=== PATIENT | male | born 1945 | race Two or more races ===

== ENCOUNTER 2020-09-10 11:34 | Outpatient (CLI) | payer OTHER, SELFPAY ==
[2020-09-10 12:04] LABS: Basophils Percent Auto 0.6 % (0.2-1.2); Eosinophils Absolute Auto 0.2 K/mm3 (0-0.3); Eosinophils Percent Auto 3.3 % (0-4.4); Hematocrit 47.3 % (42.0-52.0); Hemoglobin 15.7 g/dL (14.0-18.0); Immature Granulocyte Absolute 0.03 K/mm3 (0.00-0.031); Immature Granulocyte Percent A 0.4 % (0-0.5); Lymphocytes Absolute Auto 1.19 K/mm3 (0.9-3.2); Lymphocytes Percent Auto 16.4 % (18.3-44.2); Mean Corpuscular HGB Conc 33.2 g/dl (32-36); Mean Corpuscular Hemoglobin 31.8 pg (26-34); Mean Corpuscular Volume 95.9 fl (80-100); Mean Platelet Volume 10.6 fl (7.4-10.4); Monocytes Absolute Auto 0.6 K/mm3 (0.1-0.6); Monocytes Percent Auto 8.1 % (2.6-8.5); Neutrophils Absolute Auto 5.2 K/mm3 (1.3-6.7); Neutrophils Percent Auto 71.2 % (45.5-73.1); Platelet Count Result 223 k/mm3 (150-375); Red Blood Count 4.93 M/mm3 (4.6-6.20); Red Cell Distribution Width 12.8 % (11.5-14.5); White Blood Count 7.3 K/mm3 (4.5-10.0)
[2020-09-10 12:12] LABS: Hemoglobin A1C 5.9 % (<5.7)
[2020-09-10 12:15] LABS: Alanine Aminotransferase 57 U/L (4-50); Albumin Level 4.1 g/dL (3.5-5.1); Alkaline Phosphatase 120 U/L (38-126); Anion Gap 7 mmol/L (8-16); Aspartate Amino Transferase 40 U/L (17-59); Bilirubin,Total 0.5 mg/dL (0.2-1.3); Blood Urea Nitrogen 20 mg/dL (9-20); Calcium 9.1 mg/dL (8.4-10.2); Carbon Dioxide 29 mmol/L (22-30); Chloride 101 mmol/L (98-107); Cholesterol 154 mg/dL (0-200); Estimated Glomerular Filt Rate > 60; Glucose 124 mg/dL (75-110); HDL Direct 35 mg/dL; Magnesium 2.3 mg/dL (1.6-2.3); Potassium 4.2 mmol/L (3.4-5.0); Sodium 137 mmol/L (137-145); Triglycerides 186 mg/dL (<150)
[2020-09-10 12:26] LABS: LDL Cholesterol Direct 85 mg/dL
[2020-09-10 12:45] LABS: Prostate Specific Antigen 0.8 ng/mL (< OR = 4.0)
== END 2020-09-10 11:35 | disposition home or self-care (01) ==
PROVIDERS: PCP Family Medicine; Visit Provider Family Medicine
DX: Z12.5 Encounter for screening for malignant neoplasm of prostate (principal); R73.03 Prediabetes; E78.5 Hyperlipidemia, unspecified; I47.1 Supraventricular tachycardia; I10 Essential (primary) hypertension; Z00.00 Encounter for general adult medical examination without abnormal findings
CPT/HCPCS: 36415; 80053; 80061; 83036; 83735; 84153; 84443; 85025; G0103

== ENCOUNTER 2020-09-29 15:04 | Outpatient (CLI) | payer OTHER, SELFPAY ==
--- NOTE | ~2020-09-29 | US_ITS ---
EXAMINATION: US aorta [facility] DATE: 09/29/2020 15:43 PERINATAL INSTRUCTOR INDICATION: Abdominal aortic aneurysm screening. History of smoking. TECHNIQUE: Grayscale, color Doppler, and pulsed Doppler images of the aorta and common iliac arteries were obtained. COMPARISON: None. FINDINGS: The proximal aorta measures 2.7 cm greatest sagittal dimension. The mid aorta measures 2.5 cm greates t sagittal dimension. The distal aorta measures 1.7 cm greatest sagittal dimension. The right common internal iliac artery measures 1.4 cm. The left common iliac artery measures 1.2 cm. IMPRESSION: 1. Normal caliber aorta without evidence for aneurysm. Reviewed, dictated and finalized at location A. NATAL INSTRUCTOR
== END 2020-09-29 15:05 | disposition home or self-care (01) ==
PROVIDERS: PCP Family Medicine; Visit Provider Family Medicine
DX: Z13.6 Encounter for screening for cardiovascular disorders (principal)
CPT/HCPCS: 76706

== ENCOUNTER 2020-12-06 17:38 | Outpatient (CLI) | payer OTHER, MEDICARE, SELFPAY | END 2020-12-06 17:39 | disposition home or self-care (01) | LOC: ANHCOVIDVC 17:38 | PROVIDERS: PCP Family Medicine | DX: Z23 Encounter for immunization (principal) | CPT/HCPCS: 0001A; 91300 ==

== ENCOUNTER 2020-12-27 13:53 | Outpatient (CLI) | payer OTHER, MEDICARE, SELFPAY | END 2020-12-27 13:54 | disposition home or self-care (01) | LOC: ANHCOVIDVC 13:53 | PROVIDERS: PCP Family Medicine | DX: Z23 Encounter for immunization (principal) | CPT/HCPCS: 0002A; 91300 ==

== ENCOUNTER 2021-01-28 07:53 | Outpatient (CLI) | payer OTHER, SELFPAY ==
--- NOTE | 2021-01-28 14:00 | ECG_ITS ---
Measurements Intervals [place] Rate: 50 P: 42 NE: 170 QRS: 75 QRSD: 136 T: 32 QT: 457 QTc: 418 Interpretive Statements SINUS BRADYCARDIA WITH SINUS ARRHYTHMIA RIGHT BUNDLE BRANCH BLOCK ABNORMAL ECG Electronically Signed On 01-28-2021 15:13:19 CDT by Bridger Schmidt D.O.
[2021-01-28 15:30] LABS: Basophils Percent Auto 0.6 % (0.2-1.2); Eosinophils Absolute Auto 0.2 K/mm3 (0-0.3); Eosinophils Percent Auto 2.3 % (0-4.4); Hematocrit 49.7 % (42.0-52.0); Hemoglobin 16.3 g/dL (14.0-18.0); Immature Granulocyte Absolute 0.03 K/mm3 (0.00-0.031); Immature Granulocyte Percent A 0.4 % (0-0.5); Lymphocytes Absolute Auto 1.72 K/mm3 (0.9-3.2); Lymphocytes Percent Auto 23.7 % (18.3-44.2); Mean Corpuscular HGB Conc 32.8 g/dl (32-36); Mean Corpuscular Hemoglobin 31.5 pg (26-34); Mean Corpuscular Volume 96.1 fl (80-100); Mean Platelet Volume 10.9 fl (7.4-10.4); Monocytes Absolute Auto 0.6 K/mm3 (0.1-0.6); Monocytes Percent Auto 8.8 % (2.6-8.5); Neutrophils Absolute Auto 4.7 K/mm3 (1.3-6.7); Neutrophils Percent Auto 64.2 % (45.5-73.1); Platelet Count Result 239 k/mm3 (150-375); Red Blood Count 5.17 M/mm3 (4.6-6.20); Red Cell Distribution Width 13.1 % (11.5-14.5); White Blood Count 7.3 K/mm3 (4.5-10.0)
[2021-01-28 15:36] LABS: Albumin Level 4.4 g/dL (3.5-5.1); Anion Gap 5 mmol/L (8-16); Blood Urea Nitrogen 24 mg/dL (9-20); Calcium 9.4 mg/dL (8.4-10.2); Carbon Dioxide 30 mmol/L (22-30); Chloride 103 mmol/L (98-107); Estimated Glomerular Filt Rate > 60; Glucose 93 mg/dL (75-110); Potassium 3.8 mmol/L (3.4-5.0); Sodium 138 mmol/L (137-145)
[2021-01-28 15:40] LABS: Urine Cotinine NEGATIVE
[2021-01-28 15:42] LABS: Hemoglobin A1C 6.1 % (<5.7)
== END 2021-01-28 07:54 | disposition home or self-care (01) ==
LOC: ANHSURGERY 02-25 07:53
PROVIDERS: PCP Family Medicine; Visit Provider Orthopaedic Surgery
DX: Z01.812 Encounter for preprocedural laboratory examination (principal); M17.12 Unilateral primary osteoarthritis, left knee; R94.31 Abnormal electrocardiogram [ECG] [EKG]
CPT/HCPCS: 80048; 80307; 82040; 83036; 85025; 87070; 93005

== ENCOUNTER → 2021-02-11 00:27 | Outpatient (CLI) | payer OTHER, SELFPAY ==
[2021-02-11 18:42] LABS: SARS-CoV-2 RNA PCR Negative
== END ==
PROVIDERS: PCP Family Medicine; Visit Provider Orthopaedic Surgery
DX: Z01.812 Encounter for preprocedural laboratory examination (principal); Z20.822 Contact with and (suspected) exposure to COVID-19
CPT/HCPCS: C9803; U0003; U0005

== ENCOUNTER 2021-02-14 00:55 | Day surgery (SDC) | payer OTHER, SELFPAY ==
[2021-01-28 13:58] VITALS: BMI 28.7
--- NOTE | 2021-02-07 12:50 | PM.IMHP ---
H&P: HPI History of Present Illness Date/Time: 02/07/21 12:50 75-year-old male patient Dr. Guerrero who presents today for a left total knee arthroplasty with cortisone injection in the right. Patient has severe patellofemoral arthritis in his left knee with continued symptoms. He has had cortisone injections in the past last 1 being more than 5 months ago. He has tried anti-inflammatories in the past without improvement. Patient has reached the point where he feels he is ready to proceed with total knee arthroplasty rather continue treating this nonsurgically. He has pain daily basis. It affects his daily activities as well as limits some of his daily activities. Review of Systems Review of Systems: All systems reviewed & are unremarkable except as noted in HPI and below PMFSH Past Medical History Medical History Benign essential hypertension (~2009) BPH (benign prostatic hyperplasia) (~2016) Dyslipidemia Erectile dysfunction GERD (gastroesophageal reflux disease) (~2009) Glaucoma (~2014) Hypokalemia Insomnia RITA on CPAP Osteoarthritis involving multiple joints on both sides of body Prediabetes RLS (restless legs syndrome) (~2017) Rosacea (~2012) Rotator cuff disorder (~2018) Screening for AAA (abdominal aortic aneurysm) Negative for AA (09/2020) Tachycardia, paroxysmal Surgical History Surgical History H/O elbow surgery left cubital tunnel release - 03/27 History of cataract surgery left eye - 03/27 History of lumbar surgery 11/27 L3,4,5 History of repair of right rotator cuff 06/2019 Family History Family History Mother Family history of emphysema Family history of cardiovascular disease Father Family history of cardiovascular disease Grandparent , cancer No problems noted. Grandparent Diabetes mellitus dx'd in her 20's. 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 Gender identity (if verbalized by the patient): Male Spiritual care concerns: No Agree to blood products: Yes Meds Home Medications and Allergies Home Medications Medication Instructions Recorded Confirmed Type Lactobac 100 mg PO DAILY 09/23/19 01/28/21 History 47-B.bifid,animal-S.thermo-FOS 10 billion cell-100 mg capsule ascorbic acid (vitamin C) 1,000 mg 1 gm PO DAILY 09/23/19 01/28/21 History tablet aspirin 81 mg tablet,delayed 81 mg PO DAILY 09/23/19 01/28/21 History release cinnamon bark 500 mg capsule 2,000 mg PO DAILY cap 09/23/19 01/28/21 History lutein 25 mg-zeaxanthin 5 mg 1 cap PO DAILY 09/23/19 01/28/21 History capsule magnesium oxide 400 mg PO BID 09/23/19 01/28/21 History xflkickm-teu-nxqwr acid 300 1 tablet PO DAILY 09/23/19 01/28/21 History mcg-lycopene 600 mcg-lutein 300 mcg tablet omeprazole magnesium 20 mg 20 mg PO DAILY 09/23/19 01/28/21 History tablet,delayed release blood sugar diagnostic #100 each 11/05/19 10/19/20 Rx blood-glucose meter #1 each 11/05/19 10/19/20 Rx lancets 32 gauge #100 each 11/05/19 10/19/20 Rx docusate sodium 100 mg tablet 100 mg PO DAILY 04/20/20 01/28/21 History blood sugar diagnostic #100 each 05/13/20 10/19/20 Rx ramipril 10 mg capsule 10 mg PO DAILY #90 cap 11/15/20 01/28/21 Rx tamsulosin 0.4 mg capsule See Rx Instructions .ROUTE 11/19/20
--- NOTE | 2021-02-07 13:55 | PM.IMHP ---
H&P: HPI History of Present Illness Date/Time: 02/07/21 13:55 75-year-old male patient of Dr. Guerrero who presents today for a left total knee arthroplasty with cortisone injection in the right knee. patient has been having long standing pain in both of his knees left greater than right. He has ufld-mj-ddhj arthritis of the patellofemoral joint left. And moderate patellofemoral arthritis in the right. He has tried injections in the past. Last 1 being more than 5 months ago. States he has pain on a daily basis and has fact taking his normal daily activities. Patient has reached a point where he feels he would rather proceed with total knee arthroplasty rather continue nonsurgical treatment. Chief Complaint: Left and right knee DJD Review of Systems Review of Systems: All systems reviewed & are unremarkable except as noted in HPI and below PMFSH Past Medical History Medical History Benign essential hypertension (~2009) BPH (benign prostatic hyperplasia) (~2016) Dyslipidemia Erectile dysfunction GERD (gastroesophageal reflux disease) (~2009) Glaucoma (~2014) Hypokalemia Insomnia RITA on CPAP Osteoarthritis involving multiple joints on both sides of body Prediabetes RLS (restless legs syndrome) (~2017) Rosacea (~2012) Rotator cuff disorder (~2018) Screening for AAA (abdominal aortic aneurysm) Negative for AA (09/2020) Tachycardia, paroxysmal Surgical History Surgical History H/O elbow surgery left cubital tunnel release - 03/27 History of cataract surgery left eye - 03/27 History of lumbar surgery 11/27 L3,4,5 History of repair of right rotator cuff 06/2019 Family History Family History Mother Family history of emphysema Family history of cardiovascular disease Father Family history of cardiovascular disease Grandparent , cancer No problems noted. Grandparent Diabetes mellitus dx'd in her 20's. 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 Gender identity (if verbalized by the patient): Male Spiritual care concerns: No Agree to blood products: Yes Meds Home Medications and Allergies Home Medications Medication Instructions Recorded Confirmed Type Lactobac 100 mg PO DAILY 09/23/19 01/28/21 History 47-B.bifid,animal-S.thermo-FOS 10 billion cell-100 mg capsule ascorbic acid (vitamin C) 1,000 mg 1 gm PO DAILY 09/23/19 01/28/21 History tablet aspirin 81 mg tablet,delayed 81 mg PO DAILY 09/23/19 01/28/21 History release cinnamon bark 500 mg capsule 2,000 mg PO DAILY cap 09/23/19 01/28/21 History lutein 25 mg-zeaxanthin 5 mg 1 cap PO DAILY 09/23/19 01/28/21 History capsule magnesium oxide 400 mg PO BID 09/23/19 01/28/21 History dmgtqcas-mnn-rfchg acid 300 1 tablet PO DAILY 09/23/19 01/28/21 History mcg-lycopene 600 mcg-lutein 300 mcg tablet omeprazole magnesium 20 mg 20 mg PO DAILY 09/23/19 01/28/21 History tablet,delayed release blood sugar diagnostic #100 each 11/05/19 10/19/20 Rx blood-glucose meter #1 each 11/05/19 10/19/20 Rx lancets 32 gauge #100 each 11/05/19 10/19/20 Rx docusate sodium 100 mg tablet 100 mg PO DAILY 04/20/20 01/28/21 History blood sugar diagnostic #100 each 05/13/20 10/19/20 Rx ramipril 10 mg capsule 10 mg PO DAILY #90 cap 11/15/20
[2021-02-14] VITALS (15 sets, daily range): BP systolic 95–132; BP diastolic 52–75; PULSE 60–78; RESP 10–20; TEMP 36–36.8; O2SAT 92–100; BMI 29.3
--- NOTE | ~2021-02-14 | XR_ITS ---
EXAMINATION: XR knee LT 2V DATE: 02/14/2021 10:49 INDICATION: Total left knee arthroplasty. Postop. TECHNIQUE: 2 views of left knee were obtained. COMPARISON: Left knee radiographs 10/09/2018 FINDINGS: There is a total left knee arthroplasty with patellar resurfacing in near-anatomic alignmen t. No fracture. There is gas in the knee joint and soft tissues, consistent with recent surgery. IMPRESSION: 1. Total left knee arthroplasty in near-anatomic alignment. Reviewed, dictated and finalized at location B.
[2021-02-14] MEDS: TRANEXAMIC ACID 1,000MG/ISO100 1,000 MG/100 ML BAG 200 MG IVPB (06:45)
[2021-02-14] MEDS: ACETAMINOPHEN 500 MG TABLET 1000 MG PO ×3 (06:45→23:25)
[2021-02-14] MEDS: LACTATED RINGERS 1,000 ML 30 ML IV CONT ×2 (06:48→10:49)
--- NOTE | 2021-02-14 07:02 | WPDANESEPPF ---
Anes - Initial Pre Proc Eval Procedure: Operation Date: 02/14/21 07:30 Proposed Procedures p Left Total Knee Arthroplasty, Cortisone Injection Right Knee - Shashank Cason MD Date/Time: 02/14/21 07:02 Surgeon: Shashank Cason MD Pre Op Diagnosis: OA left knee, OA right knee Patient Data Age: 75 Gender: M Height: 5 ft 11 in Weight: 93.4 kg Allergies Allergy/AdvReac Type Severity Reaction Status Date / Time No Known Drug Allergies Allergy Unknown Unknown Verified 01/28/21 13:59 Home Medications Medication Instructions Recorded Confirmed Type Lactobac 100 mg PO DAILY 09/23/19 01/28/21 History 47-B.bifid,animal-S.thermo-FOS 10 billion cell-100 mg capsule ascorbic acid (vitamin C) 1,000 mg 1 gm PO DAILY 09/23/19 01/28/21 History tablet aspirin 81 mg tablet,delayed 81 mg PO DAILY 09/23/19 01/28/21 History release cinnamon bark 500 mg capsule 2,000 mg PO DAILY cap 09/23/19 01/28/21 History lutein 25 mg-zeaxanthin 5 mg 1 cap PO DAILY 09/23/19 01/28/21 History capsule magnesium oxide 400 mg PO BID 09/23/19 01/28/21 History amxpaspk-gep-jodlz acid 300 1 tablet PO DAILY 09/23/19 01/28/21 History mcg-lycopene 600 mcg-lutein 300 mcg tablet omeprazole magnesium 20 mg 20 mg PO DAILY 09/23/19 01/28/21 History tablet,delayed release blood sugar diagnostic #100 each 11/05/19 10/19/20 Rx blood-glucose meter #1 each 11/05/19 10/19/20 Rx lancets 32 gauge #100 each 11/05/19 10/19/20 Rx docusate sodium 100 mg tablet 100 mg PO DAILY 04/20/20 01/28/21 History blood sugar diagnostic #100 each 05/13/20 10/19/20 Rx ramipril 10 mg capsule 10 mg PO DAILY #90 cap 11/15/20 01/28/21 Rx tamsulosin 0.4 mg capsule See Rx Instructions .ROUTE 11/19/20 01/28/21 Rx .COMPLEX #30 cap atorvastatin 20 mg tablet 20 mg PO DAILY #90 tablet 12/06/20 01/28/21 Rx ropinirole 3 mg tablet 3 mg PO DAILY #90 tablet 12/06/20 01/28/21 Rx amlodipine 5 mg tablet 5 mg PO DAILY #90 tablet 12/13/20 01/28/21 Rx potassium chloride 20 mEq 20 meq PO DAILY #90 tablet 12/31/20 01/28/21 Rx tablet,extended release(part/cryst) coQ10 (ubiquinol) 400 mg PO DAILY 01/28/21 01/28/21 History cyanocobalamin (vitamin B-12) 200 mcg PO DAILY 01/28/21 01/28/21 History fluticasone propionate [Allergy 2 spray NASAL PRN PRN 01/28/21 01/28/21 History Relief (fluticasone)] klzaszqp-hwfpt-uyugd-CF borate 1 tablet PO DAILY 01/28/21 01/28/21 History [[facility]] turmeric 1,000 mg PO BID 01/28/21 01/28/21 History spironolactone 25 mg tablet See Rx Instructions .ROUTE 01/31/21 Rx .COMPLEX #90 tablet Patient hx anesthesia problems: none Family hx anesthesia problems: none PMFSH Past Medical History Medical History Benign essential hypertension (~2009) BPH (benign prostatic hyperplasia) (~2016) Dyslipidemia Erectile dysfunction GERD (gastroesophageal reflux disease) (~2009) Glaucoma (~2014) Hypokalemia Insomnia RITA on CPAP Osteoarthritis involving multiple joints on both sides of body Prediabetes RLS (restless legs syndrome) (~2017) Rosacea (~2012) Rotator cuff disorder (~2018) Screening for AAA (abdominal aortic aneurysm) Negative for AA (09/2020) Tachycardia, paroxysmal Surgical History Surgical History H/O elbow surgery left cubital tunnel release - 03/27 History of cataract surgery left eye - 03/27 History of lumbar surgery 11/27 L3,4,5 History of repair of right rotator cuff 06/2019 Family History Family History Mother Family history of emphysema Family history of cardiovascular disease Father Family history of cardiovascular disease Grandparent , cancer No problems noted. Grandparent Diabetes mellitus dx'd in her 20's. treated w/ insulin Sibling Malignant neoplasm of prostate
--- NOTE | 2021-02-14 07:07 | WPDHPUPDATE1 ---
History and Physical Update Update Date/Time: 02/14/21 07:07 History and Physical has been reviewed, including an updated exam of the patient. There are NO changes in the patient's condition. Risks, benefits, and alternatives have been discussed and questions answered. Patient agrees to proceed with procedure.
--- NOTE | 2021-02-14 07:08 | WPDHPUPDATE1 ---
History and Physical Update Update Date/Time: 02/14/21 07:08 Also, A cortisone shot will be given in Right knee for Dx OA right knee.
[2021-02-14] MEDS: ceFAZolin 2 GM/D5W 50 ML 2 GM/50 ML BAG IVPB (07:39)
[2021-02-14] MEDS: methylPREDNISolone ACETATE 80 MG/ML VIAL IM (08:00)
[2021-02-14] MEDS: ceFAZolin SODIUM 1 GM VIAL 3 GM IRRIGATION ×2 (09:15→09:59)
[2021-02-14] MEDS: TRANEXAMIC ACID 1,000 MG/10 ML AMPUL 1000 MG IV PUSH (09:59)
--- NOTE | 2021-02-14 10:31 | PM.PROC ---
Procedure Note - Detailed Date of procedure: 02/14/21 Pre-op diagnosis: OA left knee, OA right knee Osteoarthritis both knees, patellofemoral Post-op diagnosis: same Procedure performed: Cortisone injection right knee, left total knee arthroplasty Description of procedure: Patient was brought to the operating room and general anesthesia was administered. He received 2 g of Ancef weight based vancomycin 1 g of tranexamic acid preoperatively. The right knee was prepped with ChloraPrep and 80 mg of Depo-Medrol and 3 cc 1% lidocaine were injected through a lateral parapatellar approach without difficulty and the right knee. The left knee was then prepped draped usual fashion. Limb was exsanguinated and tourniquet elevated to 250 mmHg. THEO 7 in longitudinal incision was made a vastus medialis splitting approach utilized. Infrapatellar and suprapatellar fat pads were excised the course of synovectomy carried out. The patella was severely arthritic. The lateral facet thinnest portion measured 13 mm so I felt we had enough bone for resurfacing. The more prominent medial ridge was 21 mm. The patella was carefully cut to 14 mm. Bone quality was very good. Protector cap was applied. Guide jose was inserted down the femoral canal after aspiration canal contents using the 5 degree valgus cutting bushing 9 mm of bone removed the distal femur. Next the tibial plateau was cut and we took an additional 2 mm off so that we were through the cartilage in the posterior aspect of the tibia medially and laterally. This was made perpendicular to the axis of the tibia. The flexion gap was assessed. His measured 10 mm medially and 13 mm laterally after removal of meniscal remnants and her release of PCL from the femur. The femoral sizing guide was applied and 4? of external rotation matched Whitesides line and posterior referencing pin was replaced. The femur was cut to a size 67.5 which fit nicely anterior to posterior and line to line medial to lateral. The tibia was sized to a 71 which was rotated to be parallel to the anterior surface of the tibia in line with the medial 1/3 of the tibial tubercle and in line with the 2nd metatarsal. This was punched. We trialed with the 11 insert. This came out to full extension with 1-2 medial and lateral opening to valgus and varus stress. At 90? of flexion I thought it was just a little bit loose but very close. We trialed the 12 insert and this seemed ideal at 90? of flexion with respect anterior drawer with a mm each medial and lateral opening. Jewett flexion was to 140. Residual posterior femoral bone was removed and additional 1 mm of bone was removed the distal femur chamber cuts revisited. Minimal posterior central capsular release performed and this time with trialing the knee came out to full extension with the 12 mm insert and had excellent stability in all positions. Lug holes were drilled. The patella was sized to a 34 mm 7.8 thick lug holes were drilled composite thickness was 22 mm. Lug holes were drilled. A step drill was used to make multiple perforations in the distal posterior femur and tibial plateau. The bony surfaces were thoroughly irrigated and dried. Two batches of methylmethacrylate 1 with gentamicin powder were mixed cement immediately applied the 71 tibia and then the 67.5 femur and then applied the tibia pressurized in the tibial component fully seated. Cement applied to the femur the femoral component fully seated and the knee brought into extension with a 12 mm 5 in 1 poly trial for pressurization and the 34 thin patella cemented tourniquet released 108 minutes. After cement hardening excess cement was sought for removed and hemostasis was confirmed. We trialed the 12 insert which was again noted to be appropriate and this was placed without difficulty. Locked with a locking pin. Range of motion and patellar tracking were excellent gravity flexion 140 full extension. Local anesthetic cocktail was
--- NOTE | 2021-02-14 11:43 | SUR.PHASEI ---
O2 removed at 1142.
[2021-02-14] MEDS: ONDANSETRON INJ 4 MG/2 ML VIAL IV PUSH (12:41)
--- NOTE | 2021-02-14 13:09 | SUR.PHASEI ---
RN was unhooking patient from the monitors at 1238 when he complained of nausea. RN gave 4mg zofran and let patient sit in PACU until 1305.
--- NOTE | 2021-02-14 13:10 | ADMGEN ---
This patient, Ren Monzon, was admitted to 2 Medical Room 258-01. Patient/family oriented to hospital policies and general routines including ID bracelet, bed and alarms, visiting hours, pain management, procedures, bathroom and other care routines, personal items, smoking policy, room service/diet, and visiting hours. Information on how to activate the Rapid Response Team has been discussed. Patient/Family are encouraged to report perceived risks to care and to ask questions if they do not understand what they are told or what they should do.
--- NOTE | 2021-02-14 13:12 | SUR.PHASEI ---
Patient went into A-fib with a heart rate of 140. Anesthesia aware. Patient was asymptomatic and went back into NS w/ multiple PVCs. Strip was attached to chart.
[2021-02-14] MEDS: oxyCODONE HCL (*CRX) 5 MG TAB IR PO ×4 (14:10→23:32)
[2021-02-14] MEDS: SENNA/DOCUSATE SODIUM TABLET 2 TAB PO (17:11)
[2021-02-14] MEDS: FAMOTIDINE 20 MG TABLET PO (20:11)
[2021-02-14] MEDS: ATORVASTATIN 20 MG TABLET PO (20:11)
[2021-02-14] MEDS: diphenhydrAMINE HCl INJ 50 MG/ML VIAL 25 MG IV PUSH (21:34)
--- NOTE | 2021-02-14 22:26 | PM.IMCN ---
Assessment and Plan Assessment and plan (1) RITA on CPAP: Code(s): G47.33 - Obstructive sleep apnea (adult) (pediatric); Z99.89 - Dependence on other enabling machines and devices Status: Acute (2) Hypokalemia: Code(s): E87.6 - Hypokalemia Status: Acute (3) Dyslipidemia: Code(s): E78.5 - Hyperlipidemia, unspecified Status: Acute (4) Insomnia: Qualifiers: Insomnia type: other insomnia Qualified Code(s): G47.09 - Other insomnia Code(s): G47.00 - Insomnia, unspecified Status: Acute (5) Rosacea: Onset Date: ~2012 Code(s): L71.9 - Rosacea, unspecified Status: Acute (6) RLS (restless legs syndrome): Onset Date: ~2017 Code(s): G25.81 - Restless legs syndrome Status: Chronic (7) BPH (benign prostatic hyperplasia): Onset Date: ~2016 Qualifiers: Lower urinary tract symptom presence: symptoms absent Qualified Code(s): N40.0 - Benign prostatic hyperplasia without lower urinary tract symptoms Code(s): N40.0 - Benign prostatic hyperplasia without lower urinary tract symptoms Status: Chronic (8) Benign essential hypertension: Onset Date: ~2009 Code(s): I10 - Essential (primary) hypertension Status: Chronic (9) Prediabetes: Code(s): R73.03 - Prediabetes Status: Acute (10) GERD (gastroesophageal reflux disease): Onset Date: ~2009 Qualifiers: Esophagitis presence: without esophagitis Qualified Code(s): K21.9 - Gastro-esophageal reflux disease without esophagitis Code(s): K21.9 - Gastro-esophageal reflux disease without esophagitis Status: Chronic Additional Plan # S/p left TKA: postoperative care as ordered. # HTN: # BPH # Dyslipidemia # GERD # Hypokalemia: on k sup # RITA On CPAP # Insomina; on benadryl, will order # Prediabetes # RLS (restless legs syndrome) (~2017) # Rosacea (~2012) # Rotator cuff disorder (~2018) # DVT Proph: roman Thanks for the consult HPI Data of Consult Consult date: 02/14/21 Requesting Physician: Shashank Cason MD Primary Care Provider: Sanjay Guerrero MD Consult Narrative Reason for consult: medical management Narrative: Ren Monzon is a 75 year old male who is here for left tka and underwent this am. he is seen postoperatively for medical management. he reports some nausea but better with taking crakers. no fever, chills. he has worked with therapy this am. no chest pain, sob, abdominal pain. Review of Systems Review of Systems: Narrative: - CONSTITUTIONAL: Denies weight loss, fever and chills. - HEENT: Denies changes in vision and hearing - RESPIRATORY: Denies SOB and cough. - CV: Denies palpitations and CP. - GI: Denies abdominal pain, vomiting and diarrhea. - : Denies dysuria and urinary frequency. - MSK: Denies myalgia and joint pain. - SKIN: Denies rash and pruritus. - NEUROLOGICAL: Denies headache and syncope. - PSYCHIATRIC: Denies recent changes in mood. Denies anxiety and depression. All systems reviewed & are unremarkable except as noted in HPI and below PMFSH Past Medical History Medical History Benign essential hypertension (~2009) BPH (benign prostatic hyperplasia) (~2016) Dyslipidemia Erectile dysfunction GERD (gastroesophageal reflux disease) (~2009) Glaucoma (~2014) Hypokalemia Insomnia RITA on CPAP Osteoarthritis involving multiple joints on both sides of body Prediabetes RLS (restless legs syndrome) (~2017) Rosacea (~2012) Rotator cuff disorder (~2019) Screening for AAA (abdominal aortic aneurysm) Negative for AA (09/2020) Tachycardia, paroxysmal Surgical History Surgical History H/O elbow surgery left cubital tunnel release - 03/27 History of cataract surgery left eye - 03/27 History of lumbar surgery / L
[2021-02-15 05:18] VITALS: BP 115/50; PULSE 64; RESP 20; TEMP 36.8; O2SAT 98
[2021-02-15] MEDS: ACETAMINOPHEN 500 MG TABLET 1000 MG PO ×2 (05:20→11:42)
[2021-02-15] MEDS: oxyCODONE HCL (*CRX) 5 MG TAB IR PO ×3 (05:20→13:29)
[2021-02-15 05:47] LABS: Hematocrit 40.1 % (42.0-52.0); Hemoglobin 13.2 g/dL (14.0-18.0); Mean Corpuscular HGB Conc 32.9 g/dl (32-36); Mean Corpuscular Hemoglobin 31.5 pg (26-34); Mean Corpuscular Volume 95.7 fl (80-100); Mean Platelet Volume 11.5 fl (7.4-10.4); Platelet Count Result 208 k/mm3 (150-375); Red Blood Count 4.19 M/mm3 (4.6-6.20); Red Cell Distribution Width 12.9 % (11.5-14.5); White Blood Count 20.6 K/mm3 (4.5-10.0)
[2021-02-15 05:54] LABS: Anion Gap 5 mmol/L (8-16); Blood Urea Nitrogen 19 mg/dL (9-20); Calcium 8.2 mg/dL (8.4-10.2); Carbon Dioxide 24 mmol/L (22-30); Chloride 104 mmol/L (98-107); Estimated CRCL calculation 61 ml/min; Estimated Glomerular Filt Rate > 60; Glucose 172 mg/dL (75-110); Potassium 4.4 mmol/L (3.4-5.0); Sodium 133 mmol/L (137-145)
--- NOTE | 2021-02-15 06:17 | PM.PNORT ---
Progress Note: A&P Additional Plan POD 1 alert avss , wd-dry pt has been up walking with PT yesterday in halls, pain is well controlled,labs-noted, plan to have pt work with PT today then send home this afternoon Subjective Subjective Date/Time Seen: 02/15/21 06:17 Objective Data Vital Signs Vital Signs: Vital Signs - 24 hr 02/14/21 10:49 02/14/21 11:00 02/14/21 11:15 Temperature 36.7 C Pulse Rate 66 64 61 Respiratory Rate 10 L 10 L 10 L Blood Pressure 97/53 L 98/53 L 99/55 L Pulse Oximetry 95 95 96 02/14/21 11:30 02/14/21 11:45 02/14/21 12:00 Temperature Pulse Rate 67 71 64 Respiratory Rate 14 16 15 Blood Pressure 102/75 113/68 115/64 Pulse Oximetry 100 100 92 02/14/21 12:15 02/14/21 12:30 02/14/21 13:10 Temperature 36.1 C L Pulse Rate 60 61 68 Respiratory Rate 12 16 18 Blood Pressure 95/57 L 114/52 L 120/62 Pulse Oximetry 92 93 96 02/14/21 13:25 02/14/21 13:55 02/14/21 14:55 Temperature 36.0 C L 36.4 C L 36.7 C Pulse Rate 60 75 78 Respiratory Rate 18 18 18 Blood Pressure 120/64 120/63 111/60 Pulse Oximetry 94 97 97 02/14/21 20:00 02/14/21 20:43 02/14/21 21:50 Temperature 36.8 C Pulse Rate 67 71 67 Respiratory Rate 20 20 Blood Pressure 132/60 Pulse Oximetry 94 99 94 02/15/21 05:18 Temperature 36.8 C Pulse Rate 64 Respiratory Rate 20 Blood Pressure 115/50 L Pulse Oximetry 98 Intake/Output Intake/Output: Intake & Output 02/12/21 02/13/21 02/14/21 02/15/21 23:59 23:59 23:59 23:59 Intake Total 2069 440 Balance 2069 440 Meds/Results Medications: Active Medications Generic Name Dose Route Start Last Admin Trade Name Freq PRN Reason Stop Dose Admin Acetaminophen 1,000 mg 02/14/21 18:00 02/15/21 05:20 Acetaminophen 500 Mg Tablet PO 1,000 mg Q6H GARCÍA Administration Amlodipine Besylate 5 mg 02/15/21 09:00 Amlodipine Besylate 5 Mg Tablet PO DAILY GARCÍA Apixaban 2.5 mg 02/15/21 09:00 Apixaban 2.5 Mg Tablet PO 02/26/21 21:01 Q12HR GARCÍA Atorvastatin Calcium 20 mg 02/14/21 21:00 02/14/21 20:11 Atorvastatin 20 Mg Tablet PO 20 mg HS GARCÍA Administration Bisacodyl 10 mg 02/14/21 13:13 Bisacodyl 10 Mg Suppository RECTAL DAILY PRN Constipation Celecoxib 200 mg 02/15/21 08:00 Celecoxib 200 Mg Capsule PO DAILY@0800 GARCÍA Cephalexin HCl 500 mg 02/15/21 12:00 Cephalexin 500 Mg Capsule PO 02/22/21 12:01 Q6HR GARCÍA Diphenhydramine HCl 25 mg 02/14/21 13:13 02/14/21 21:34 Diphenhydramine Hcl Inj 50 Mg/Ml Vial IV PUSH 25 mg Q6H PRN Administration Itching Diphenhydramine HCl 25 mg 02/14/21 22:24 Diphenhydramine Hcl Cap 25 Mg Capsule PO HS PRN insomnia Famotidine 20 mg 02/14/21 21:00 02/14/21 20:11 Famotidine 20 Mg Tablet PO 20 mg Q12HR GARCÍA Administration Fluticasone Propionate 2 spray 02/14/21 13:13 Fluticasone Propionate 0.05% Na Spr 16 Gm Btl (*Bkc) NASAL PRN PRN Allergy Symptoms Vancomycin HCl 1,000 mg in 250 mls @ 250 mls/hr 02/14/21 19:00 02/14/21 19:35 Vancomycin 1,000 Mg/D5w 250 Ml IVPB 02/15/21 07:59 Infused Q12H GARCÍA Infusion Cefazolin Sodium 1 gm in 50 mls @ 100 mls/hr 02/14/21 14:00 02/15/21 05:21 Ancef 1 Gm/D5w 50 Ml Pm IVPB 02/15/21 06:29 100 mls/hr Q8H GARCÍA Administration Morphine Sulfate 2 mg 02/14/21 13:13 Morphine Sulfate (*Crx) 2 Mg/Ml Inj IV PUSH Q4H PRN Pain Rated 7-10 Naloxone HCl 0.1 mg 02/14/21 13:13 Naloxone Hcl 0.4 Mg/Ml Vial IV PUSH Q2M PRN Opiate Reversal Non-Formulary Medication 200 mcg 02/15/21 09:00 Cyanocobalamin (Vitamin B-12) PO 03/17/21 09:01 DAILY GARCÍA Ondansetron HCl 4 mg 02/14/21 13:13 Ondansetron Inj 4 Mg/2 Ml Vial IV PUSH Q4H PRN Nausea And Vomiting Oxycodone HCl 5 mg 02/14/21 13:13 02/15/21 05:20 Oxycodone Hcl (*Crx) 5 Mg Tab Ir PO 5 mg Q4HR GARCÍA Administration Oxycodone HCl 5 mg 02/14/21 13:13
--- NOTE | 2021-02-15 06:26 | PM.DS ---
DS: Admitting Diagnosis Admitting Diagnosis Admitting Diagnosis: Left knee DJD DS: Summary Hospital Course Hospital Course: stable Time Spent with Patient Time attestation: Total time spent providing and/or coordinating discharge services: 75-year-old male who underwent left total knee arthroplasty on 02/14. Underwent the procedure without any complications. Postoperatively he has been afebrile vital signs stable. Neurovascularly he is intact. He had a Mepilex dressing over his incision. He is weight-bearing as tolerated. He was up walking with physical therapy the day of surgery in the halls and very comfortable. His pain is well controlled with Celebrex 200 mg daily as well as scheduled Tylenol 1000 mg Q 6 hours. He is also on oxycodone 5 mg. Patient will work with Physical therapy on 02/15 will plan to discharge him home later this afternoon if he continues to do well. Patient was advised to keep leg elevated at home prevent swelling but do his exercises on a regular basis. He has outpatient therapy starting in 2 days. He is also going home on a week of Keflex because he is prediabetic. He is also going home on MiraLax and Senokot for constipation. Patient was advised any questions or concerns once he goes home he should call the office otherwise will see him back as appointed dates. DS: Data Data Completed and Pending Labs on day of discharge: Labs from last 24 hours 02/15/21 02/15/21 02/14/21 05:12 05:12 06:34 WBC 20.6 H RBC 4.19 L Hgb 13.2 L D Hct 40.1 L MCV 95.7 MCH 31.5 MCHC 32.9 RDW 12.9 Plt Count 208 MPV 11.5 H Immature Gran % (Auto) Not Reportable Neut % (Auto) Not Reportable Lymph % (Auto) Not Reportable [place] % (Auto) Not Reportable Eos % (Auto) Not Reportable Baso % (Auto) Not Reportable Lymph # (Auto) Not Reportable [place] # (Auto) Not Reportable Eos # (Auto) Not Reportable Baso # (Auto) Not Reportable Abs Immat Gran (auto) Not Reportable Absolute Neuts (auto) Not Reportable Absolute Nucleated RBC Not Reportable Nucleated RBC % Not Reportable Platelet Estimate Pending Sodium 133 L Potassium 4.4 Chloride 104 Carbon Dioxide 24 Anion Gap 5 L BUN 19 Creatinine 1.00 Estim Creat Clear Calc 61 Estimated GFR > 60 Glucose 172 H Calcium 8.2 L Blood Type O Positive Antibody Screen Negative Discharge Plan Discharge Patient Disposition: Home, Self-Care Discharge Instructions: SHASHANK CASON M.D [facility], [place] [id number] [place] [address] POST-OPERATIVE DISCHARGE INSTRUCTIONS TOTAL KNEE ARTHROPLASTY 1. When resting, lie on back with leg elevated above hear to minimize swelling. Significant swelling could indicate a blood clot and if this occurs call the office (or go to the ER) to have a venous ultrasound. 2. Do exercise 5 times a day. 3. Do not sit with leg down except for meals. 4. Wound Care: Nursing will give additional dressings at discharge. Patient to change dressing at home 1 week from surgery, then maintain until seen in office. 5. May shower with dressing in place. 6. Follow weight bearing status instructions. Stand Alone Forms: General Discharge Instructions Follow-up/Referrals: Shashank Cason MD [Physician] - Keep Reg. Scheduled Appt. Discharge Medications: New acetaminophen 500 mg Tablet 1,000 mg PO Q6H Qty: 90 RF: 0 Eliquis 2.5 mg Tablet 2.5 mg PO Q12HR Qty: 27 RF: 0 celecoxib [Celebrex] 200 mg Capsule 200 mg PO DAILY@0800 Qty: 30 RF: 0 sennosides-docusate sodium [Senokot-S] 8.6-50 mg Tablet 2 tab-cap PO BID Qty: 60 RF: 0 cephalexin 500 mg Capsule 500 mg PO Q6HR Qty: 27 RF: 0 polyethylene glycol 3350 [Miralax] 17 gram Powder In Packet 17 g PO QAM Qty: 30 RF: 0 oxycodone 5 mg Tablet 5 mg PO Q4HR Qty: 50 RF: 0 Continued fluticasone p
[2021-02-15 06:28] LABS: Band Neutrophils Percent 2 % (0-6); Eosinophils Percent Manual 1 % (0-4); Lymphocytes Absolute Manual 0.82 K/mm3 (1.1-4.5); Monocytes Absolute Manual 0.61 K/mm3 (0.1-0.90); Monocytes Percent Manual 3 % (3-9); Neutrophils Absolute Manual 18.95 K/mm3 (1.3-6.7); Neutrophils Percent Manual 90 % (46-73); Platelet Estimate Adequate (Adequate); Total Cells Counted 100
--- NOTE | 2021-02-15 07:55 | P.PNAN_ITS ---
Anes - Prog Note Post-Op Date/Time: 02/15/21 07:55 Cardiovascular status: normal Respiratory status: normal Airway patency: baseline Mental status: baseline Post-Op hydration status: normal Vital Signs: Last Vital Signs Temp 36.8 C 02/15/21 05:18 Pulse 64 02/15/21 05:18 Resp 20 02/15/21 05:18 BP 115/50 L 02/15/21 05:18 Pulse Ox 98 02/15/21 05:18 Pain Score (VAS): 2 I/O: Intake & Output 02/14/21 02/14/21 02/15/21 15:59 23:59 07:59 Intake Total 1100 970 490 Balance 1100 970 490 Laboratory Tests 02/15/21 05:12 02/15/21 05:12 02/14/21 02/15/21 02/15/21 06:34 05:12 05:12 WBC 20.6 H RBC 4.19 L Hgb 13.2 L D Hct 40.1 L MCV 95.7 MCH 31.5 MCHC 32.9 RDW 12.9 Plt Count 208 MPV 11.5 H Immature Gran % (Auto) Not Reportable Neut % (Auto) Not Reportable Lymph % (Auto) Not Reportable [place] % (Auto) Not Reportable Eos % (Auto) Not Reportable Baso % (Auto) Not Reportable Lymph # (Auto) Not Reportable [place] # (Auto) Not Reportable Eos # (Auto) Not Reportable Baso # (Auto) Not Reportable Abs Immat Gran (auto) Not Reportable Absolute Neuts (auto) Not Reportable Absolute Nucleated RBC Not Reportable Total Counted 100 Neutrophils % (Manual) 90 H Band Neutrophils % 2 Lymphocytes % (Manual) 4.0 L Monocytes % (Manual) 3 Eosinophils % (Manual) 1 Nucleated RBC % Not Reportable Abs Neuts (Manual) 18.95 H Abs Lymphs (Manual) 0.82 L Abs Monocytes (Manual) 0.61 Absolute Eos (Manual) 0.20 Platelet Estimate Adequate Sodium 133 L Potassium 4.4 Chloride 104 Carbon Dioxide 24 Anion Gap 5 L BUN 19 Creatinine 1.00 Estim Creat Clear Calc 61 Estimated GFR > 60 Glucose 172 H Calcium 8.2 L Blood Type O Positive Antibody Screen Negative Post-procedural complaints: none Patient Feedback: Patient satisfied with anesthetic care.
[2021-02-15] MEDS: POTASSIUM CHLORIDE 20 MEQ TABLET.ER PO (09:25)
[2021-02-15] MEDS: rOPINIRole HCL 1 MG TABLET 3 MG PO (09:25)
[2021-02-15] MEDS: amLODIPine BESYLATE 5 MG TABLET PO (09:25)
[2021-02-15] MEDS: SENNA/DOCUSATE SODIUM TABLET 2 TAB PO (09:25)
[2021-02-15] MEDS: CELECOXIB 200 MG CAPSULE PO (09:25)
[2021-02-15] MEDS: polyethylene glycoL 3350 17 GM POWD.PACK PO (09:26)
[2021-02-15] MEDS: SPIRONOLACTONE 25 MG TABLET BY MOUTH (09:26)
[2021-02-15] MEDS: FAMOTIDINE 20 MG TABLET PO (09:26)
[2021-02-15] MEDS: APIXABAN 2.5 MG TABLET PO (09:26)
[2021-02-15 09:51] VITALS: O2SAT 98
[2021-02-15] MEDS: TAMSULOSIN HCL 0.4 MG CAPSULE PO (11:42)
[2021-02-15] MEDS: CEPHALEXIN 500 MG CAPSULE PO (11:42)
--- NOTE | 2021-02-15 14:11 | PM.IMPN ---
Progress Note: A&P Additional Plan # S/p left TKA: postoperative care as ordered. # HTN: # BPH # Dyslipidemia # GERD # Hypokalemia: on k sup # RITA On CPAP # Insomina; on benadryl, will order # Prediabetes # RLS (restless legs syndrome) (~2018) # Rosacea (~2013) # Rotator cuff disorder (~2019) # DVT Proph: [email or web address] Thanks for the consult 02/15/21 14:11 Patient is 75-year-old male status post left TKA states participate in physical therapy and feels much better pain is controlled he was seen by orthopedic service is being discharged home will have remaining physical therapy as an outpatient, denies any complaint chest pain shortness of breath palpitation fever or chills, patient is clinically stable will discharge the patient home today. Subjective Date/time seen: 02/15/21 14:11 Patient is 75-year-old male status post left TKA states participate in physical therapy and feels much better pain is controlled he was seen by orthopedic service is being discharged home will have remaining physical therapy as an outpatient, denies any complaint chest pain shortness of breath palpitation fever or chills, patient is clinically stable will discharge the patient home today Review of Systems Review of Systems: All systems reviewed & are unremarkable except as noted in HPI and below Exam Narrative: Exam Narrative: Patient is comfortable, NAD HEENT: eyes are clear and none icteric LUNGS:CTA HEART: RR S1S2 ABD: BS+, Soft and nontender Lower extremities: no edema MS: left knee immobilizer SKIN: nonjaundiced Neuro: grossly intact. Objective Data Vital Signs Vital Signs: Vital Signs - 24 hr 02/14/21 14:55 02/14/21 20:00 02/14/21 20:43 Temperature 98.0 F 98.3 F Pulse Rate 78 67 71 Respiratory Rate 18 20 20 Blood Pressure 111/60 132/60 Pulse Oximetry 97 94 99 02/14/21 21:50 02/15/21 05:18 02/15/21 09:51 Temperature 98.2 F Pulse Rate 67 64 Respiratory Rate 20 Blood Pressure 115/50 L Pulse Oximetry 94 98 98 Intake/Output Intake/Output: Intake & Output 02/12/21 02/13/21 02/14/21 02/15/21 23:59 23:59 23:59 23:59 Intake Total 2069 730 Balance 2069 730 Meds/Results Medications: Active Medications Generic Name Dose Route Start Last Admin Trade Name Freq PRN Reason Stop Dose Admin Acetaminophen 1,000 mg 02/14/21 18:00 02/15/21 11:42 Acetaminophen 500 Mg Tablet PO 1,000 mg Q6H GARCÍA Administration Amlodipine Besylate 5 mg 02/15/21 09:00 02/15/21 09:25 Amlodipine Besylate 5 Mg Tablet PO 5 mg DAILY GARCÍA Administration Apixaban 2.5 mg 02/15/21 09:00 02/15/21 09:26 Apixaban 2.5 Mg Tablet PO 02/26/21 21:01 2.5 mg Q12HR GARCÍA Administration Atorvastatin Calcium 20 mg 02/14/21 21:00 02/14/21 20:11 Atorvastatin 20 Mg Tablet PO 20 mg HS GARCÍA Administration Bisacodyl 10 mg 02/14/21 13:13 Bisacodyl 10 Mg Suppository RECTAL DAILY PRN Constipation Celecoxib 200 mg 02/15/21 08:00 02/15/21 09:25 Celecoxib 200 Mg Capsule PO 200 mg DAILY@0800 GARCÍA Administration Cephalexin HCl 500 mg 02/15/21 12:00 02/15/21 11:42 Cephalexin 500 Mg Capsule PO 02/22/21 12:01 500 mg Q6HR GARCÍA Administration Diphenhydramine HCl 25 mg 02/14/21 13:13 02/14/21 21:34 Diphenhydramine Hcl Inj 50 Mg/Ml Vial IV PUSH 25 mg Q6H PRN Administration Itching Diphenhydramine HCl 25 mg 02/14/21 22:24 Diphenhydramine Hcl Cap 25 Mg Capsule PO HS PRN insomnia Famotidine 20 mg 02/14/21 21:00 02/15/21 09:26 Famotidine 20 Mg Tablet PO 20 mg Q12HR GARCÍA Administration Fluticasone Propionate 2 spray 02/14/21 13:13 Fluticasone Propionate 0.05% Na Spr 16 Gm Btl (*Bkc) NASAL PRN PRN Allergy Symptoms Morphine Sulfate 2 mg 02/14/21 13:13 Morphine Sulfate (*Crx) 2 Mg/Ml Inj IV PUSH Q4H PRN Pain Rated 7-10 Naloxone HCl 0.1 mg 02/14/21 13:13 Naloxone Hcl 0.4 Mg/Ml Vial IV PUSH Q2M PRN O
== END 2021-02-15 15:00 | disposition home or self-care (01) ==
LOC: ANHSURGERY 05:59 → ANH2MED 13:16
PROVIDERS: Physician Assistant Surgical; PCP Family Medicine; Visit Provider Orthopaedic Surgery
PROC: (CPT 27447; principal; 2021-02-14 07:30)
DX: M17.0 Bilateral primary osteoarthritis of knee (principal); I10 Essential (primary) hypertension; E78.5 Hyperlipidemia, unspecified; G47.33 Obstructive sleep apnea (adult) (pediatric); R73.03 Prediabetes; K21.9 Gastro-esophageal reflux disease without esophagitis; N40.0 Benign prostatic hyperplasia without lower urinary tract symptoms; G47.00 Insomnia, unspecified; L71.9 Rosacea, unspecified; G25.81 Restless legs syndrome; Z87.891 Personal history of nicotine dependence
CPT/HCPCS: 27447; 20610; 36415; 73560; 80048; 85025; 86850; 86900; 86901; 97110; 97116; 97161; 97165; 97530; A9270; C1713; C1776; C9803; J0171; J0690; J1040; J1100; J1170; J1200; J1885; J2270; J2370; J2405; J2704; J2795; J3010; J3370; J7120; U0003; U0005

== ENCOUNTER 2021-02-25 11:06 | Outpatient (CLI) | payer OTHER, SELFPAY ==
--- NOTE | ~2021-02-25 | US_ITS ---
EXAMINATION: US venous doppler [facility] EXAM DATE: 02/25/2021 11:49 INDICATION: Left leg swelling, recent knee replacement. TECHNIQUE: Multiple grayscale, color flow and Doppler images of the left lower extremity deep venous system were obtained and reviewed. Comparison is made to prior examination from 11/06/2018. FINDINGS: The left common femoral, femoral and profunda veins demonstrate normal color flow, respirat ory variation, augmentation and compressibility. Compressibility, color flow confirmed within the le ft popliteal, posterior tibial, peroneal, and greater saphenous veins. IMPRESSION: 1. No left lower extremity deep venous thrombosis. Reviewed, dictated and finalized at location A.
== END 2021-02-25 11:07 | disposition home or self-care (01) ==
LOC: ANHIMG 11:07
PROVIDERS: PCP Family Medicine; Visit Provider Orthopaedic Surgery
DX: M79.89 Other specified soft tissue disorders (principal)
CPT/HCPCS: 93971

== ENCOUNTER → 2021-03-22 01:28 | Outpatient (CLI) | payer OTHER, SELFPAY ==
[2021-03-22 17:24] LABS: SARS-CoV-2 RNA PCR Negative
== END ==
PROVIDERS: PCP Family Medicine; Visit Provider Internal Medicine Critical Care Medicine
DX: Z20.822 Contact with and (suspected) exposure to COVID-19 (principal)
CPT/HCPCS: C9803; U0003; U0005

== ENCOUNTER 2021-03-22 12:42 | Outpatient (CLI) | payer OTHER, SELFPAY ==
[2021-03-24 21:29] LABS: Lactoferrin, Stool Negative (Negative)
== END 2021-03-22 12:43 | disposition home or self-care (01) ==
LOC: ANHLAB 12:46
PROVIDERS: PCP Family Medicine; Visit Provider Physician Assistant Medical
DX: R19.7 Diarrhea, unspecified (principal)
CPT/HCPCS: 83630; 87045; 87046; 87177; 87209; 87324; 87427; 89055; C9803; U0003; U0005

== ENCOUNTER 2021-03-25 09:41 | Outpatient (CLI) | payer OTHER, SELFPAY ==
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
[2021-04-20 09:47] VITALS: BMI 27.8
== END 2021-03-26 06:56 | disposition home or self-care (01) ==
LOC: ANHCSM 09:43
PROVIDERS: PCP Family Medicine; Visit Provider Nurse Practitioner Family
DX: G47.33 Obstructive sleep apnea (adult) (pediatric) (principal)
CPT/HCPCS: 95810

== ENCOUNTER 2021-05-20 08:47 | Outpatient (CLI) | payer OTHER, SELFPAY ==
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
[2021-06-15 15:45] VITALS: BMI 27.8
== END 2021-05-21 08:00 | disposition home or self-care (01) ==
LOC: ANHCSM 05-23 08:47
PROVIDERS: PCP Family Medicine; Visit Provider Family Medicine
DX: G47.33 Obstructive sleep apnea (adult) (pediatric) (principal); Z68.27 Body mass index [BMI] 27.0-27.9, adult
CPT/HCPCS: 95811

== ENCOUNTER 2021-09-12 10:40 | Outpatient (CLI) | payer OTHER, SELFPAY ==
[2021-09-12 11:50] LABS: Hemoglobin A1C 5.9 % (<5.7)
[2021-09-12 11:52] LABS: Alanine Aminotransferase 43 U/L (4-50); Albumin Level 4.3 g/dL (3.5-5.1); Alkaline Phosphatase 87 U/L (38-126); Anion Gap 6 mmol/L (8-16); Aspartate Amino Transferase 54 U/L (17-59); Bilirubin,Total 1.1 mg/dL (0.2-1.3); Blood Urea Nitrogen 17 mg/dL (9-20); Carbon Dioxide 25 mmol/L (22-30); Chloride 100 mmol/L (98-107); Cholesterol 153 mg/dL (0-200); Estimated Glomerular Filt Rate > 60; Glucose 119 mg/dL (65-110); HDL Direct 39 mg/dL; Magnesium 2.2 mg/dL (1.6-2.3); Potassium 5.1 mmol/L (3.4-5.0); Sodium 131 mmol/L (137-145); Triglycerides 172 mg/dL (<150)
[2021-09-12 12:02] LABS: LDL Cholesterol Direct 76 mg/dL
[2021-09-12 12:21] LABS: Prostate Specific Antigen 0.6 ng/mL (< OR = 4.0)
[2021-09-12 13:38] LABS: Vitamin D 25 Hydroxy 51.2 ng/mL
[2021-09-12 14:29] LABS: Basophils Percent Auto 0.5 % (0.2-1.2); Eosinophils Absolute Auto 0.2 K/mm3 (0-0.3); Eosinophils Percent Auto 2.1 % (0-4.4); Hematocrit 45.2 % (42.0-52.0); Hemoglobin 15.3 g/dL (14.0-18.0); Immature Granulocyte Absolute 0.02 K/mm3 (0.00-0.031); Immature Granulocyte Percent A 0.3 % (0-0.5); Lymphocytes Absolute Auto 1.39 K/mm3 (0.9-3.2); Lymphocytes Percent Auto 18.4 % (18.3-44.2); Mean Corpuscular HGB Conc 33.8 g/dl (32-36); Mean Corpuscular Hemoglobin 32.1 pg (26-34); Mean Corpuscular Volume 94.8 fl (80-100); Mean Platelet Volume 10.9 fl (7.4-10.4); Monocytes Absolute Auto 0.5 K/mm3 (0.1-0.6); Monocytes Percent Auto 6.9 % (2.6-8.5); Neutrophils Absolute Auto 5.4 K/mm3 (1.3-6.7); Neutrophils Percent Auto 71.8 % (45.5-73.1); Platelet Count Result 231 k/mm3 (150-375); Red Blood Count 4.77 M/mm3 (4.6-6.20); Red Cell Distribution Width 12.9 % (11.5-14.5); White Blood Count 7.6 K/mm3 (4.5-10.0)
== END 2021-09-12 10:41 | disposition home or self-care (01) ==
LOC: ANHLAB 11:00
PROVIDERS: PCP Family Medicine; Visit Provider Family Medicine
DX: Z12.5 Encounter for screening for malignant neoplasm of prostate (principal); E78.5 Hyperlipidemia, unspecified; R73.03 Prediabetes; Z00.00 Encounter for general adult medical examination without abnormal findings; I10 Essential (primary) hypertension; E55.9 Vitamin D deficiency, unspecified; I47.1 Supraventricular tachycardia; R53.83 Other fatigue
CPT/HCPCS: 36415; 80053; 80061; 82306; 83036; 83735; 84153; 84443; 85025; G0103

== ENCOUNTER 2021-11-11 01:29 | Day surgery (SDC) | payer OTHER, SELFPAY ==
[2021-11-01 15:43] VITALS: BMI 27.9
--- NOTE | 2021-11-10 16:27 | WPDANESEPP ---
Anes - Eval Pre Procedure Procedure: Operation Date: 11/11/21 09:00 Proposed Procedures p Screening Colonoscopy - Alexey Jorge MD Date/Time: 11/10/21 16:27 Pre Op Diagnosis: hx of colon polyps Patient Data Age: 76 Gender: M Height: 1.8 m Weight: 90.9 kg Allergies Allergy/AdvReac Type Severity Reaction Status Date / Time No Known Drug Allergies Allergy Unknown Unknown Verified 11/01/21 15:34 Home Medications Medication Instructions Recorded Confirmed Type Lactobac 100 mg PO DAILY 09/23/19 11/01/21 History 47-B.animal,bifid-S.thermo 10 billion cell-FOS 100 mg capsule ascorbic acid (vitamin C) 1,000 mg 1 gm PO DAILY 09/23/19 11/01/21 History tablet cinnamon bark 500 mg capsule 2,000 mg PO DAILY cap 09/23/19 11/01/21 History lutein 25 mg-zeaxanthin 5 mg 1 cap PO DAILY 09/23/19 11/01/21 History capsule magnesium oxide 400 mg PO DAILY 09/23/19 11/01/21 History axkkxpvf-qly-jnisl acid 300 1 tablet PO DAILY 09/23/19 11/01/21 History mcg-lycopene 600 mcg-lutein 300 mcg tablet omeprazole magnesium 20 mg 20 mg PO DAILY 09/23/19 11/01/21 History tablet,delayed release blood sugar diagnostic #100 each 11/05/19 11/01/21 Rx blood-glucose meter #1 each 11/05/19 11/01/21 Rx Move Free [place] 1 tablet PO DAILY 01/28/21 11/01/21 History coQ10 (ubiquinol) 400 mg PO DAILY 01/28/21 11/01/21 History cyanocobalamin (vitamin B-12) 200 mcg PO DAILY 01/28/21 11/01/21 History fluticasone propionate [Allergy 2 spray NASAL PRN PRN 01/28/21 11/01/21 History Relief (fluticasone)] turmeric 1,000 mg PO BID 01/28/21 11/01/21 History aspirin 81 mg tablet,delayed 81 mg PO DAILY tablet 03/14/21 11/01/21 History release vit C,E,zinc,copper-ulmyh1x 250 1 cap PO DAILY 04/19/21 11/01/21 History mg-lutein 5 mg-zeaxanthin 1 mg capsule ramipril 10 mg capsule 10 mg PO DAILY #90 cap 09/05/21 11/01/21 Rx spironolactone 25 mg tablet 25 mg PO DAILY #90 tablet 09/05/21 11/01/21 Rx potassium chloride 10 mEq 10 meq PO DAILY #90 tablet 09/12/21 11/01/21 Rx tablet,extended release ropinirole 2 mg tablet 2 mg PO QHS #90 tablet 09/12/21 11/01/21 Rx tamsulosin 0.4 mg capsule 0.4 mg PO DAILY #30 cap 10/10/21 11/01/21 Rx blood sugar diagnostic #100 each 10/14/21 11/01/21 Rx coffee xt-phosphatidyl serine 1 tablet PO DAILY 11/01/21 11/01/21 History [Neuriva Original] amlodipine 5 mg tablet 5 mg PO DAILY #90 tablet 11/08/21 Rx atorvastatin 20 mg tablet 20 mg PO QHS #90 tablet 11/08/21 Rx lancets #100 ea 11/08/21 Rx Patient hx anesthesia problems: none Family hx anesthesia problems: none Results Review: All pre-operative results and documents have been reviewed as part of the pre-operative evaluation. [facility] Past Medical History Medical History Benign essential hypertension (~2009) BPH (benign prostatic hyperplasia) (~2016) Dyslipidemia Environmental allergies Erectile dysfunction GERD (gastroesophageal reflux disease) (~2009) Glaucoma (~2014) History of colon polyps Hypokalemia Hypomagnesemia RITA on CPAP Osteoarthritis involving multiple joints on both sides of body Prediabetes RLS (restless legs syndrome) (~2017) Rosacea (~2012) Rotator cuff disorder (~2018) Screening for AAA (abdominal aortic aneurysm) Negative for AA (09/2020) Surgical History Surgical History H/O elbow surgery left cubital tunnel release - 03/27 History of cataract surgery left eye - 03/27 History of left knee replacement 02/2021 History of lumbar surgery 11/27 L3,4,5 History of repair of right rotator cuff 06/2019 Total knee replacement status (~2020) Family History Family History Mother Family history of emphysema Family history of cardiovascular disease Father Family history of cardiovascular disease Grandparent Dec
[2021-11-11 08:05] VITALS: BP 120/82; PULSE 55; RESP 18; TEMP 35.8; O2SAT 99; BMI 27.1
--- NOTE | 2021-11-11 08:19 | WPDANESEFPP ---
Anes - Eval Final PreProcedure Day of Procedure 11/11/21 08:19 Patient weight: overweight Heart: regular rate and rhythm Lungs: clear to auscultation Airway: Mallampati scale class II Neurological: alert and oriented Last oral intake: >/= 8 hours ASA classification: III Emergent: no Anesthetic plan: proceed Anesthesia type and monitoring: general GIVS and standard monitoring Results Review: All pre-operative results and documents have been reviewed as part of the pre-operative evaluation. Informed Consent: The patient's anesthetic plan and its attendant risks and benefits were discussed with the patient/family/POA. Questions were solicited and answers provided to the satisfaction of the patient/family/POA.
[2021-11-11] MEDS: LACTATED RINGERS 1,000 ML 150 ML IV CONT (08:27)
--- NOTE | 2021-11-11 08:40 | PM.HPGS ---
History of Present Illness History of Present Illness Consent: Risks, benefits, and alternatives have been discussed and questions answered. Patient agrees to proceed with procedure. Chief complaint: hx of colon polyps Narrative: Ren Monzon is a 76 year old male here for screening colonoscopy, last one 2011 Review of Systems Constitutional: Constitutional: Denies headache(s) and Denies weakness Eyes: Eyes: Denies blurry vision ENT: Reports Normal hearing present, Denies headache(s) and Denies neck pain Cardiovascular: Cardiovascular: Denies chest pain and Denies dyspnea Respiratory: Respiratory: Denies dyspnea Gastrointestinal: Gastrointestinal: Reports no additional gastrointestinal complaints Genitourinary: Genitourinary: Denies dysuria Musculoskeletal: Musculoskeletal: Denies neck pain Integumentary/Breasts: Skin/Breast: Denies dry skin Neurologic: Reports Normal hearing present, Denies headache(s) and Denies weakness Psychiatric: Psychiatric: Denies anxiety Endocrine: Endocrine: Denies change in body appearance Hematologic/Lymphatic: Hematologic/Lymphatic: Denies easy bleeding Allergic/Immunologic: Allergic/Immunologic: Denies urticaria PMFSH Past Medical History Medical History Benign essential hypertension (~2009) BPH (benign prostatic hyperplasia) (~2016) Dyslipidemia Environmental allergies Erectile dysfunction GERD (gastroesophageal reflux disease) (~2009) Glaucoma (~2014) History of colon polyps Hypokalemia Hypomagnesemia RITA on CPAP Osteoarthritis involving multiple joints on both sides of body Prediabetes RLS (restless legs syndrome) (~2017) Rosacea (~2012) Rotator cuff disorder (~2018) Screening for AAA (abdominal aortic aneurysm) Negative for AA (09/2020) Surgical History Surgical History H/O elbow surgery left cubital tunnel release - 03/27 History of cataract surgery left eye - 03/27 History of left knee replacement 02/2021 History of lumbar surgery 11/27 L3,4,5 History of repair of right rotator cuff 06/2019 Total knee replacement status (~2020) Family History Family History Mother Family history of emphysema Family history of cardiovascular disease Father Family history of cardiovascular disease Grandparent , cancer No problems noted. Grandparent Diabetes mellitus dx'd in her 20's. 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 Gender identity (if verbalized by the patient): Male Spiritual care concerns: No Agree to blood products: Yes Meds Home Medications and Allergies Home Medications Medication Instructions Recorded Confirmed Type Lactobac 100 mg PO DAILY 09/23/19 11/11/21 History 47-B.animal,bifid-S.thermo 10 billion cell-FOS 100 mg capsule ascorbic acid (vitamin C) 1,000 mg 1 gm PO DAILY 09/23/19 11/11/21 History tablet cinnamon bark 500 mg capsule 2,000 mg PO DAILY cap 09/23/19 11/11/21 History lutein 25 mg-zeaxanthin 5 mg 1 cap PO DAILY 09/23/19 11/11/21 History capsule magnesium oxide 400 mg PO DAILY 09/23/19 11/11/21 History ujtenqzj-awl-vmhcp acid 300 1 tablet PO DAILY 09/23/19 11/11/21 History mcg-lycopene 600 mcg-lutein 300 mc
[2021-11-11 09:05] VITALS: BP 85/51; PULSE 62; RESP 18; O2SAT 97
[2021-11-11 09:15] VITALS: BP 101/59; PULSE 58; RESP 14; O2SAT 98
[2021-11-11 09:25] VITALS: BP 109/70; PULSE 52; RESP 14; O2SAT 96
== END 2021-11-11 09:53 | disposition home or self-care (01) ==
PROVIDERS: PCP Family Medicine; Visit Provider Internal Medicine Gastroenterology
PROC: 0DJD8ZZ Inspection of Lower Intestinal Tract, Via Natural or Artificial Opening Endoscopic (ICD-10-PCS; CPT 45378; principal; 2021-11-11 09:00)
DX: Z12.11 Encounter for screening for malignant neoplasm of colon (principal); D12.2 Benign neoplasm of ascending colon; D12.3 Benign neoplasm of transverse colon; K63.5 Polyp of colon; K57.30 Diverticulosis of large intestine without perforation or abscess without bleeding; K64.8 Other hemorrhoids; E78.5 Hyperlipidemia, unspecified; I10 Essential (primary) hypertension; N40.0 Benign prostatic hyperplasia without lower urinary tract symptoms; K21.9 Gastro-esophageal reflux disease without esophagitis; H40.9 Unspecified glaucoma; G47.33 Obstructive sleep apnea (adult) (pediatric); R73.03 Prediabetes; G25.81 Restless legs syndrome; Z87.891 Personal history of nicotine dependence
CPT/HCPCS: 45385; 88305; J2704; J7120

== ENCOUNTER 2022-02-15 08:37 | Outpatient (CLI) | payer OTHER, SELFPAY ==
[2022-02-15 10:14] LABS: CRP < 0.5 mg/dL (<1.0)
[2022-02-15 10:17] LABS: Erythrocyte Sedimentation Rate 7 mm/hr (0-20)
[2022-02-15 15:32] LABS: Source Synovial Fluid Synovial fluid
[2022-02-15 15:33] LABS: Appearance Synovial Fluid Hazy (Clear); Color Synovial Fluid Yellow (Colorless); Lymphocytes Synovial Fluid 97 %; Monocytes Synovial Fluid 3 %; Neutrophils Synovial Fluid 0 % (0-25)
[2022-02-15 15:36] LABS: Crystals Synovial Fluid None Seen (None Seen)
== END 2022-02-15 08:38 | disposition home or self-care (01) ==
PROVIDERS: PCP Family Medicine; Visit Provider Orthopaedic Surgery
DX: M25.562 Pain in left knee (principal); M25.462 Effusion, left knee; Z96.652 Presence of left artificial knee joint
CPT/HCPCS: 36415; 85652; 86140; 87070; 87075; 87205; 89051; 89060

== ENCOUNTER 2022-02-20 15:58 | Outpatient (CLI) | payer OTHER, SELFPAY ==
[2022-02-20 16:19] LABS: Hemoglobin A1C 5.8 % (<5.7)
[2022-02-20 16:21] LABS: Alanine Aminotransferase 34 U/L (6-50); Albumin Level 4.1 g/dL (3.5-5.1); Alkaline Phosphatase 101 U/L (38-126); Anion Gap 3 mmol/L (8-16); Aspartate Amino Transferase 31 U/L (17-59); Bilirubin,Total 0.5 mg/dL (0.2-1.3); Blood Urea Nitrogen 21 mg/dL (9-20); Carbon Dioxide 27 mmol/L (22-30); Chloride 105 mmol/L (98-107); Estimated Glomerular Filt Rate > 60; Glucose 118 mg/dL (65-110); Potassium 4.3 mmol/L (3.4-5.0); Sodium 135 mmol/L (137-145)
== END 2022-02-20 15:59 | disposition home or self-care (01) ==
PROVIDERS: PCP Family Medicine; Visit Provider Family Medicine
DX: E87.6 Hypokalemia (principal); E78.5 Hyperlipidemia, unspecified; R73.03 Prediabetes
CPT/HCPCS: 36415; 80053; 83036

== ENCOUNTER 2022-02-23 06:33 | Emergency (ER) | payer OTHER, SELFPAY ==
--- NOTE | ~2022-02-23 | XR_ITS ---
XR elbow LT min 3V 02/23/2022 08:00 INDICATION: Dog bite posteriorly. PROCEDURE: 4 views left elbow COMPARISON: No prior studies for comparison. FINDINGS: Fracture, dislocation or subluxation is not identified. No significant joint effusion. Ther e is moderate soft tissue swelling dorsally. No foreign bodies are identified. IMPRESSION: 1: Moderate soft tissue swelling dorsal to the humerus distally. Reviewed, dictated and finalized at location B.
[2022-02-23 06:40] VITALS: BP 152/79; PULSE 93; RESP 16; TEMP 36.3; O2SAT 98
[2022-02-23] MEDS: TETANUS,DIPHTHERIA,AC PERTUSSIS ADULT (0.5 ML) BOOSTRIX IM (07:02)
[2022-02-23] MEDS: AMOXICILLIN/CLAVULANATE K 875-125 MG TAB 1 TABLET PO (07:02)
[2022-02-23] MEDS: ACETAMINOPHEN 325 MG TABLET 650 MG PO (07:02)
[2022-02-23 07:09] VITALS: BP 122/78; PULSE 88; RESP 12; O2SAT 98
--- NOTE | 2022-02-23 07:22 | ED.ANIMALBIT ---
HPI - Animal Bite General Chief Complaint: Animal Bite Stated Complaint: animal bite Time Seen by Provider: 02/23/22 07:15 Source: patient Mode of arrival: ambulatory Limitations: no limitations History of Present Illness HPI narrative: Patient is 76 years old white male presented to the ED with a [place] Young dog bite at the back of left elbow prior to arrival to the emergency. Patient was sitting inside the car and his elbow out of the window, his friend dog jumped and bit his elbow.. No other injuries. Related Data Home Medications Medication Instructions Recorded Confirmed Lactobac 100 mg PO DAILY 09/23/19 02/20/22 47-B.animal,bifid-S.thermo 10 billion cell-FOS 100 mg capsule ascorbic acid (vitamin C) 1,000 mg 1 gm PO DAILY 09/23/19 02/20/22 tablet cinnamon bark 500 mg capsule 2,000 mg PO DAILY cap 09/23/19 02/20/22 lutein 25 mg-zeaxanthin 5 mg 1 cap PO DAILY 09/23/19 02/20/22 capsule magnesium oxide 400 mg PO DAILY 09/23/19 02/20/22 lvlocodh-rby-safyo acid 300 1 tablet PO DAILY 09/23/19 02/20/22 mcg-lycopene 600 mcg-lutein 300 mcg tablet omeprazole magnesium 20 mg 20 mg PO DAILY 09/23/19 02/20/22 tablet,delayed release Move Free [employer] [facility] 1 tablet PO DAILY 01/28/21 02/20/22 coQ10 (ubiquinol) 400 mg PO DAILY 01/28/21 02/20/22 cyanocobalamin (vitamin B-12) 200 mcg PO DAILY 01/28/21 02/20/22 fluticasone propionate [Allergy 2 spray NASAL PRN PRN 01/28/21 02/20/22 Relief (fluticasone)] turmeric 1,000 mg PO BID 01/28/21 02/20/22 aspirin 81 mg tablet,delayed 81 mg PO DAILY tablet 03/14/21 02/20/22 release vit C,E,zinc,copper-nbejr3u 250 1 cap PO DAILY 04/19/21 02/20/22 mg-lutein 5 mg-zeaxanthin 1 mg capsule coffee xt-phosphatidyl serine 1 tablet PO DAILY 11/01/21 02/20/22 [Neuriva Original] Allergies Allergy/AdvReac Type Severity Reaction Status Date / Time No Known Drug Allergies Allergy Unknown Unknown Verified 02/23/22 06:45 Review of Systems Review of Systems: All systems reviewed & are unremarkable except as noted in HPI and below PMFSH Past Medical History Medical History Benign essential hypertension (~2009) BPH (benign prostatic hyperplasia) (~2016) Dyslipidemia Environmental allergies Erectile dysfunction GERD (gastroesophageal reflux disease) (~2009) Glaucoma (~2014) History of colon polyps Hypokalemia Hypomagnesemia RITA on CPAP Osteoarthritis involving multiple joints on both sides of body Prediabetes RLS (restless legs syndrome) (~2017) Rosacea (~2012) Rotator cuff disorder (~2018) Screening for AAA (abdominal aortic aneurysm) Negative for AA (09/2020) Surgical History Surgical History H/O elbow surgery left cubital tunnel release - 03/27 History of cataract surgery left eye - 03/27 History of left knee replacement 02/2021 History of lumbar surgery 11/27 L3,4,5 History of repair of right rotator cuff 06/2019 Total knee replacement status (~2020) Family History Family History Mother Family history of emphysema Family history of cardiovascular disease Father Family history of cardiovascular disease Grandparent , cancer No problems noted. Grandparent Diabetes mellitus dx'd in her 20's. treated w/ insulin Sibling Malignant neoplasm of prostate Social History Social History Social History: quit in 1972 Years smoked: 9 Tobacco type: pipe and cigars Second hand tobacco smoke exposure: No Additional smoking assessment comments: DENIES ANY FORM OF TOBACCO USE Alcohol intake: never Alcohol use details: drank up to pint weekly for up 5 years Substance use: never Substance use type: does not use Additional occupation/education comments: [employer]
[2022-02-23 08:29] VITALS: BP 130/62; PULSE 75; RESP 15; O2SAT 97
== END 2022-02-23 08:31 | disposition home or self-care (01) ==
PROVIDERS: Emergency Provider Emergency Medicine; PCP Family Medicine
DX: S51.052A Open bite, left elbow, initial encounter (principal); Z23 Encounter for immunization; I10 Essential (primary) hypertension; E78.5 Hyperlipidemia, unspecified; N40.0 Benign prostatic hyperplasia without lower urinary tract symptoms; R73.03 Prediabetes; H40.9 Unspecified glaucoma; K21.9 Gastro-esophageal reflux disease without esophagitis; G47.33 Obstructive sleep apnea (adult) (pediatric); G25.81 Restless legs syndrome; M19.90 Unspecified osteoarthritis, unspecified site; Z98.42 Cataract extraction status, left eye; Z96.653 Presence of artificial knee joint, bilateral; Z87.891 Personal history of nicotine dependence; Z79.82 Long term (current) use of aspirin; W54.0XXA Bitten by dog, initial encounter
CPT/HCPCS: 73080; 90471; 90715; 99283; A9270

== ENCOUNTER 2022-05-03 07:39 | Outpatient (CLI) | payer OTHER, SELFPAY ==
--- NOTE | ~2022-05-03 | US_ITS ---
EXAMINATION: US aorta DATE: 05/03/2022 08:34 INDICATION: Essential hypertension TECHNIQUE: Grayscale, color Doppler, and pulsed Doppler images of the aorta and common iliac arteries were obtained. COMPARISON: 09/09/2020 FINDINGS: Maximum vascular dimensions are as follows: Proximal aorta: 2.9 cm Mid aorta: 2.6 cm Distal aorta: 2.4 cm Right common iliac artery: 1.3 cm Left common iliac artery: 1.3 cm There is no evidence of abdominal aortic aneurysm. IMPRESSION: 1. No sonographic evidence of abdominal aortic aneurysm. Reviewed, dictated and finalized at location B.
== END 2022-05-03 07:40 | disposition home or self-care (01) ==
PROVIDERS: PCP Family Medicine; Visit Provider Internal Medicine Cardiovascular Disease
DX: I10 Essential (primary) hypertension (principal)
CPT/HCPCS: 76775

== ENCOUNTER 2022-09-22 08:20 | Outpatient (CLI) | payer OTHER, SELFPAY ==
[2022-09-22 09:20] LABS: Basophils Percent Auto 0.2 % (0.2-1.2); Eosinophils Percent Auto 0.1 % (0-4.4); Hematocrit 46.5 % (42.0-52.0); Hemoglobin 15.6 g/dL (14.0-18.0); Immature Granulocyte Absolute 0.15 K/mm3 (0.00-0.031); Immature Granulocyte Percent A 1.1 % (0-0.5); Lymphocytes Absolute Auto 1.75 K/mm3 (0.9-3.2); Lymphocytes Percent Auto 13.2 % (18.3-44.2); Mean Corpuscular HGB Conc 33.5 g/dl (32-36); Mean Corpuscular Hemoglobin 32.4 pg (26-34); Mean Corpuscular Volume 96.7 fl (80-100); Monocytes Absolute Auto 0.7 K/mm3 (0.1-0.6); Monocytes Percent Auto 5.4 % (2.6-8.5); Neutrophils Absolute Auto 10.6 K/mm3 (1.3-6.7); Platelet Count Result 238 k/mm3 (150-375); Red Blood Count 4.81 M/mm3 (4.6-6.20); Red Cell Distribution Width 13.4 % (11.5-14.5); White Blood Count 13.3 K/mm3 (4.5-10.0)
[2022-09-22 09:37] LABS: Alanine Aminotransferase 48 U/L (6-50); Alkaline Phosphatase 85 U/L (38-126); Anion Gap 7 mmol/L (8-16); Aspartate Amino Transferase 30 U/L (17-59); Bilirubin,Total 0.7 mg/dL (0.2-1.3); Blood Urea Nitrogen 33 mg/dL (9-20); Calcium 8.7 mg/dL (8.4-10.2); Carbon Dioxide 27 mmol/L (22-30); Chloride 103 mmol/L (98-107); Cholesterol 133 mg/dL (0-200); Estimated Glomerular Filt Rate > 60; Glucose 115 mg/dL (65-110); HDL Direct 48 mg/dL; Potassium 4.2 mmol/L (3.4-5.0); Sodium 137 mmol/L (137-145); Triglycerides 120 mg/dL (<150)
[2022-09-22 09:38] LABS: Hemoglobin A1C 6.5 % (<5.7)
[2022-09-22 09:48] LABS: LDL Cholesterol Direct 57 mg/dL
[2022-09-22 10:05] LABS: Prostate Specific Antigen 0.7 ng/mL (< OR = 4.0)
== END 2022-09-22 08:21 | disposition home or self-care (01) ==
PROVIDERS: PCP Family Medicine; Visit Provider Nurse Practitioner
DX: R73.03 Prediabetes (principal); Z12.5 Encounter for screening for malignant neoplasm of prostate; E78.5 Hyperlipidemia, unspecified
CPT/HCPCS: 36415; 80053; 80061; 83036; 84153; 85025; G0103

== ENCOUNTER 2022-10-04 10:13 | Outpatient (CLI) | payer OTHER, SELFPAY ==
--- NOTE | ~2022-10-04 | XR_ITS ---
Right Shoulder Technique: AP and scapular Y views were obtained. Clinical History: Pain Findings: No fracture or dislocation is seen. Osseous alignment is anatomic. There is minimal degener ative change of the glenohumeral and acromioclavicular joints. Suture anchor is noted at the humeral head. Soft tissues are unremarkable. Impression: Minimal degenerative change, as above. Suture anchors at the right humeral head. Reviewed, dictated and finalized at location . 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 Suture anchors at the right humeral head.
== END 2022-10-04 10:14 | disposition home or self-care (01) ==
PROVIDERS: PCP Family Medicine; Visit Provider Family Medicine
DX: M25.511 Pain in right shoulder (principal); Z98.890 Other specified postprocedural states
CPT/HCPCS: 73030

== ENCOUNTER 2022-12-05 13:40 | Emergency (ER) | payer OTHER, SELFPAY ==
[2022-12-05 13:54] VITALS: BP 117/69; PULSE 100; RESP 18; TEMP 36.1; O2SAT 96
--- NOTE | 2022-12-05 13:59 | ED.SKABFB ---
HPI - Skin/Abscess/Foreign Bdy General Chief complaint: Skin/Abscess/Foreign Body Stated complaint: rash Time Seen by Provider: 12/05/22 14:00 Source: patient, family, RN notes reviewed and old records reviewed Mode of arrival: ambulatory Limitations: no limitations History of Present Illness HPI narrative: 77 year old male accompanied by with complaints of red blotchy rash scattered on body which started last night and is itchy. Patient reports that he took a bath with Epsom salts and also applied hydrocortisone ointment to rash. Patient also reports that he had diarrhea for 12 hours which stopped at 0500 today. Patient reports that he did start 2 new medications in the past 2 week one was Gluco-trust to loose weight which is over counter and on 11/23 he started Meloxicam but think he has taken that before. Patient is not having any trouble swallowing and no respiratory issues. MD complaint: rash Onset (ago): day(s) (last night) Location: generalized Quality: pruritic Treatments prior to arrival: other (hydrocortisone ointment judy Epsom salt bath) Related Data Home Medications Medication Instructions Recorded Confirmed Lactobac 100 mg PO DAILY 09/23/19 12/05/22 47-B.animal,bifid-S.thermo 10 billion cell-FOS 100 mg capsule (Probiotic Complex (with FOS)) ascorbic acid (vitamin C) 1,000 mg 1 gm PO DAILY 09/23/19 12/05/22 tablet cinnamon bark 500 mg capsule 2,000 mg PO DAILY 09/23/19 12/05/22 (Cinnamon) lutein 25 mg-zeaxanthin 5 mg 1 cap PO DAILY 09/23/19 12/05/22 capsule (Ocuvite Lutein) magnesium oxide 400 mg PO DAILY 09/23/19 12/05/22 iffrlkkh-gwz-vfzyt acid 300 1 tablet PO DAILY 09/23/19 12/05/22 mcg-lycopene 600 mcg-lutein 300 mcg tablet (Men 50 Plus Multivitamin) omeprazole magnesium 20 mg 20 mg PO DAILY 09/23/19 12/05/22 tablet,delayed release (Prilosec OTC) coQ10 (ubiquinol) 200 mg capsule 400 mg PO DAILY 01/28/21 12/05/22 cyanocobalamin (vitamin B-12) 100 200 mcg PO DAILY 01/28/21 12/05/22 mcg tablet fluticasone propionate 50 2 spray intranasal PRN PRN Allergy 01/28/21 12/05/22 mcg/actuation nasal Symptoms spray,suspension (Allergy Relief (fluticasone)) glucosam 750 mg-chondroi 100 1 tablet PO DAILY 01/28/21 12/05/22 mg-hyalur 1.65 mg-CF borate 108 mg tablet (Vioozer) turmeric 400 mg capsule 1,000 mg PO BID 01/28/21 12/05/22 aspirin 81 mg tablet,delayed 81 mg PO DAILY 03/14/21 12/05/22 release vit C,E,zinc,copper-tftnx3p 250 1 cap PO DAILY 04/19/21 12/05/22 mg-lutein 5 mg-zeaxanthin 1 mg capsule (Ocuvite Adult 50 Plus) coffee extract 50 mg-phosphatidyl 1 tablet PO DAILY 11/01/21 12/05/22 serine 50 mg chewable tablet (Neuriva Original) amlodipine 5 mg tablet 5 mg PO DAILY 10/03/22 12/05/22 meloxicam 15 mg tablet 15 mg PO DAILY 12/05/22 12/05/22 Allergies Allergy/AdvReac Type Severity Reaction Status Date / Time No Known Drug Allergies Allergy Unknown Unknown Verified 12/05/22 13:51 Review of Systems Review of Systems: CONSTITUTIONAL: Denies fever, chills, or sweats. CARDIOVASCULAR: Denies chest pain, palpitations, or edema. RESPIRATORY: Denies cough or dyspnea. SKIN: Reports generalized red scattered blotchy rash which is itchy MUSCULOSKELETAL: Denies joint pain or myalgia. NEUROLOGIC: Denies headache, numbness, or weakness. All systems reviewed & are unremarkable except as noted in HPI and below PMFSH Past Medical History Medical History Benign essential hypertension (~2010) BPH (benign prostatic hyperplasia) (~2017) Dyslipidemia Environmental allergies Erectile dysfunction GERD (gastroesophageal reflux disease) (~2009) Glaucoma (~2014) History of colon polyps Hypokalemia Hypomagnesemia RITA on CPAP Osteoarthritis involving multiple joints on both sides of body Prediabetes RLS (restless legs syndrome) (~2018) Rosacea (~2012) Rotator cuff disorder (~2019) Screening fo
== END 2022-12-05 14:23 | disposition home or self-care (01) ==
PROVIDERS: Emergency Provider Registered Nurse; PCP Family Medicine
DX: L25.9 Unspecified contact dermatitis, unspecified cause (principal); I10 Essential (primary) hypertension; Z79.1 Long term (current) use of non-steroidal anti-inflammatories (NSAID)
CPT/HCPCS: 99213; G0463

== ENCOUNTER 2022-12-12 07:20 | Outpatient (CLI) | payer OTHER, SELFPAY ==
--- NOTE | 2022-12-12 07:24 | ECHO_ITS ---
Patient Info Name: Ren Monzon Age: 77 years : 1945 Gender: Male Ht: 71 in Wt: 195 lbs BSA: 2.12 m2 HR: 58 bpm BP: 142 / 95 mmHg Technical Quality: Good Exam Date: 12/12/2022 7:38 AM Exam Location: [facility] Pul[facility] Patient Status: Outpatient Admit Date: 12/12/2022 Staff Ordering Physician: Bridger Schmidt DO Skein Yarn Drier: Gale Wheeler RDCS Attending Provider: Bridger Schmidt DO Referring Physician: Brayan HUERTA; Exam Type: CA echo doppler color flow Study Info Indications R07.9 - Chest pain, unspecified Complete two-dimensional, color flow and Doppler transthoracic echocardiogram is performed. Summary 1. Complete two-dimensional, color flow and Doppler transthoracic echocardiogram is performed. 2. Left ventricular chamber dimension is normal. 3. Left ventricular systolic function is normal, estimated at 55-60%. 4. The left ventricular diastolic function is grade II diastolic dysfunction. 5. E/e' 7 is not elevated. 6. Global longitudinal strain is normal at -17.3%. 7. Left atrial chamber dimension is mildly enlarged. 8. There is mild mitral valve regurgitation. 9. No pulmonary hypertension, estimated pulmonary arterial systolic pressure is 33 mmHg. Left Ventricle E/e' 7 is not elevated. Global longitudinal strain is normal at -17.3%. Left ventricular chamber dimension is normal. Left ventricular systolic function is normal, estimated at 55-60%. The left ventricular diastolic function is grade II diastolic dysfunction. Right Ventricle Right ventricular systolic function is normal and with normal TAPSE 2.4 cm. Right ventricular chamber dimension is normal. Left Atria Left atrial chamber dimension is mildly enlarged. Right Atria Right atrial chamber dimension is normal. Aortic Valve The aortic valve is trileaflet. There is no aortic valve stenosis. There is no aortic valve regurgitation. Pulmonic Valve There is no pulmonic regurgitation. Mitral Valve There is no mitral valve stenosis. There is mild mitral valve regurgitation. Tricuspid Valve There is no tricuspid valve regurgitation. No pulmonary hypertension, estimated pulmonary arterial systolic pressure is 33 mmHg. Pericardium/Pleural There is no pericardial effusion. Inferior Vena Cava Normal inferior vena cava with >50% collapse upon inspiration consistent with normal right atrial pressure, 5 mmHg. Aorta The aortic root size at the sinus of Valsalva is normal. Left Ventricular Outflow Tract Name Value Normal LVOT 2D LVOT Diameter 2.0 cm LVOT Doppler LVOT Peak Gradient 3 mmHg LVOT Mean Gradient 2 mmHg LVOT VTI 20 cm LVOT VTI/AV VTI Ratio 0.9 LVOT Stroke Volume 62 ml LVOT CO 3.5 l/min LVOT CI 1.6 l/min/m2 Pulmonic Valve Name Value Normal
--- NOTE | 2022-12-12 07:25 | EST_ITS ---
Patient Info Name: Ren Monzon Age: 77 years : 1945 Gender: Male Ht: 71 in Wt: 195 lbs BSA: 2.12 m2 HR: 71 bpm BP: 127 / 81 mmHg Heart Rhythm: Sinus Rhythm Technical Quality: Good Exam Date: 12/12/2022 10:03 AM Exam Location: [facility] Pulmonary Patient Status: Outpatient Admit Date: 12/12/2022 Staff Ordering Physician: Bridger Schmidt DO Sewer Head: Narcisa Galdamez RDCS Attending Provider: Bridger Schmidt DO Referring Physician: Brayan HUERTA; Exam Type: CA stress echo Study Info Indications R07.9 - Chest pain, unspecified Treadmill exercise stress echocardiogram is performed. Summary 1. 1. Negative Alon exercise stress test for ischemic ST changes by ECG criteria. 2. 2. Good functional capacity, achieving 8.9 METs of workload. 3. 3. Development of atrial fibrillation with RVR immediately during recovery. 4. 4. Appropriate HR response to exercise. 5. 5. Negative stress echocardiogram for ischemia by wall motion analysis. 6. 6. Patient informed of the above results. Stress Echo Findings Left Ventricle Appropriate increase in LV endocardial thickening with systole. Appropriate augmentation of contractility with systole. No wall motion abnormality. Left Ventricle Normal LV systolic function, no wall motion abnormality. Protocol: Alon Stress ECG Details Stage: REST Duration (min): 0 min : 12 sec Speed (mph): 0.0 Grade (%): 0 HR (bpm): 54 SBP (mmHg): --- DBP (mmHg): --- METS: --- Stage: REST Duration (min): 2 min : 5 sec Speed (mph): 0.0 Grade (%): 0 HR (bpm): 47 SBP (mmHg): 127 DBP (mmHg): 81 METS: --- Stage: REST Duration (min): 20 min : 3 sec Speed (mph): 0.0 Grade (%): 0 HR (bpm): 56 SBP (mmHg): 127 DBP (mmHg): 81 METS: --- Stage: STAGE 1 Duration (min): 1 min : 0 sec Speed (mph): 1.7 Grade (%): 10 HR (bpm): 74 SBP (mmHg): 127 DBP (mmHg): 81 METS: --- Stage: STAGE 1 Duration (min): 2 min : 0 sec Speed (mph): 1.7 Grade (%): 10 HR (bpm): 86 SBP (mmHg): 127 DBP (mmHg): 81 METS: --- Stage: STAGE 1 Duration (min): 3 min : 0 sec Speed (mph): 1.7 Grade (%): 10 HR (bpm): 89 SBP (mmHg): 151 DBP (mmHg): 65 METS: --- Stage: STAGE 2 Duration (min): 1 min : 0 sec Speed (mph): 2.5 Grade (%): 12 HR (bpm): 103 SBP (mmHg): 151 DBP (mmHg): 65 METS: --- Stage: STAGE 2 Duration (min): 2 min : 0 sec Speed (mph): 2.5 Grade (%): 12 HR (bpm): 107 SBP (mmHg): 164 DBP (mmHg): 68 METS: --- Stage: STAGE 2 Duration (min): 3 min : 0 sec Speed (mph): 2.5 Grade (%): 12 HR (bpm): 113 SBP (mmHg): 164 DBP (mmHg): 68 METS: --- Stage: STAGE 3 Duration (min): 1 min : 0 sec Speed (mph): 3.4 Grade (%): 14 HR (bpm): 131 SBP (mmHg): 164 DBP (mmHg): 68 METS: --- Stage: STAGE 3 Duration (min): 1 min : 2 sec Jacinto
== END 2022-12-12 07:21 | disposition home or self-care (01) ==
PROVIDERS: PCP Family Medicine; Visit Provider Internal Medicine Cardiovascular Disease
DX: R07.9 Chest pain, unspecified (principal)
CPT/HCPCS: 93306; 93351

== ENCOUNTER 2022-12-12 11:43 | Observation (INO) | payer OTHER, SELFPAY ==
[2022-12-12] VITALS (10 sets, daily range): BP systolic 122–129; BP diastolic 64–72; PULSE 50–70; RESP 14–18; TEMP 36.2–36.8; O2SAT 97–100; BMI 28.1
--- NOTE | 2022-12-12 11:26 | ECG_ITS ---
Measurements Intervals [place] Rate: 44 P: 35 AL: 147 QRS: 40 QRSD: 130 T: 31 QT: 429 QTc: 369 Interpretive Statements SINUS BRADYCARDIA RIGHT BUNDLE BRANCH BLOCK ABNORMAL ECG COMPARED TO ECG 01/28/2021 15:11:23 HEART RATE HAS DECREASED Electronically Signed On 12-12-2022 16:34:40 SENIOR BENEFITS SPECIALIST by Bridger Schmidt D.O.
--- NOTE | 2022-12-12 12:00 | ADMGEN ---
This patient, Ren Monzon, was admitted to IMU Room 206-01. Patient/family oriented to hospital policies and general routines including ID bracelet, bed and alarms, visiting hours, pain management, procedures, bathroom and other care routines, personal items, smoking policy, room service/diet, and visiting hours. Information on how to activate the Rapid Response Team has been discussed. Patient/Family are encouraged to report perceived risks to care and to ask questions if they do not understand what they are told or what they should do.
--- NOTE | 2022-12-12 12:54 | PM.IMHP ---
H&P: HPI History of Present Illness Date/Time: 12/12/22 12:54 Chief Complaint: New onset atrial fibrillation with RVR Narrative: Patient is a 77 yr old man who is my regular cardiology patient is a direct admit from stress lab. He has a history of hypertension, dyslipidemia, RITA, PAT (Occurred on 07/07/19 under general anesthesia with potassium 2.8.? Fast HR at 176 bpm. I do not have strips to verify arrhythmia.) Immediately after stress test he went into rapid atrial fibrillation. Patient is being directly admitted for Sotalol loading and rate control. Since being admitted he has returned to sinus rhythm. Reports sharp mid chest pain intermittently at rest. He had his left knee surgery in 2020. He had lower back surgery on 11/18/18. He can walk 1 mile without any problems. Denies sob, orthopnea, PND, palpitations. Cardiovascular Procedures Electrophysiology:: 11/10/22 EKG: Sinus rhythm, RBBB. 04/19/21 EKG: Sinus rhythm at 60 bpm, RBBB. 01/28/21 EKG: Sinus rhythm, RBBB. EKG: Sinus rhythm, RBBB- 10/13/19 EKG (Sinus rhythm, PAC, RBBB.) - 07/07/2019 Stress Tests:: 03/25/21 Sleep study: Severe RITA. 02/25/21 Venous duplex: No DVT of left leg. Review of Systems Review of Systems: All systems reviewed & are unremarkable except as noted in HPI and below Constitutional: Constitutional: Denies chills and Denies fever(s) Cardiovascular: Cardiovascular: Reports as per HPI, Reports chest pain, Denies irregular heart rhythm, Denies leg edema and Denies lightheadedness Respiratory: Respiratory: Reports as per HPI and Denies dyspnea Gastrointestinal: Gastrointestinal: Reports as per HPI and Denies abdominal pain Genitourinary: Genitourinary: Reports as per HPI and Denies dysuria Musculoskeletal: Musculoskeletal: Reports as per HPI and Reports arthralgias Neurologic: Reports as per HPI, Denies dizziness and Denies syncope [facility] Past Medical History Medical History Benign essential hypertension (~2009) BPH (benign prostatic hyperplasia) (~2016) Dyslipidemia Environmental allergies Erectile dysfunction GERD (gastroesophageal reflux disease) (~2009) Glaucoma (~2014) History of colon polyps Hypokalemia Hypomagnesemia RITA on CPAP Osteoarthritis involving multiple joints on both sides of body Prediabetes RLS (restless legs syndrome) (~2017) Rosacea (~2012) Rotator cuff disorder (~2018) Screening for AAA (abdominal aortic aneurysm) Negative for AA (09/2020) Surgical History Surgical History H/O elbow surgery left cubital tunnel release - 03/27 History of cataract surgery left eye - 03/27 History of left knee replacement 02/2021 History of lumbar surgery 11/27 L3,4,5 History of repair of right rotator cuff 06/2019 Total knee replacement status (~2020) Family History Family History Mother Family history of emphysema Family history of cardiovascular disease Father Family history of cardiovascular disease Grandparent , cancer No problems noted. Grandparent Diabetes mellitus dx'd in her s. treated w/ insulin Sibling Malignant neoplasm of prostate Social History Social History Social History: quit in 1972 Years smoked: 9 Smoking status: Never smoker Tobacco type: pipe and cigars Second hand tobacco smoke exposure: No Additional smoking assessment comments: DENIES ANY FORM OF TOBACCO USE Alcohol intake: never Alcohol use details: drank up to pint weekly for up 5 years Substance use: never Substance use type: does not use Lack of Transportation: No Lack of Food: Never True Current Housing: I Have Housing Concerned About Future Housing: No Difficulty Paying Gas/Electric Bills: No Difficulty Paying for Meds: No
[2022-12-12] MEDS: SOTALOL HCL 80 MG TABLET PO (13:18)
[2022-12-12] MEDS: ATORVASTATIN 20 MG TABLET PO (20:26)
[2022-12-12] MEDS: APIXABAN 5 MG TABLET PO (20:26)
[2022-12-12] MEDS: SOTALOL HCL 40 MG TABLET PO (20:27)
[2022-12-12] MEDS: rOPINIRole HCL 1 MG TABLET 2 MG PO (21:51)
--- NOTE | 2022-12-12 22:38 | ECG_ITS ---
Measurements Intervals [place] Rate: 61 P: 22 [place]: 161 QRS: 58 QRSD: 130 T: 25 QT: 465 QTc: 472 Interpretive Statements SINUS RHYTHM RIGHT BUNDLE BRANCH BLOCK BASELINE ARTIFACT- II, III, AVF ABNORMAL ECG COMPARED TO ECG 12/12/2022 15:28:07 SINUS RHYTHM NOW PRESENT Electronically Signed On 12-13-2022 6:40:08 NEUROLOGICAL SURGERY TEACHER by Bridger Schmidt D.O.
[2022-12-13] VITALS (16 sets, daily range): BP systolic 102–120; BP diastolic 47–63; PULSE 44–65; RESP 16–20; TEMP 35.8–36.8; O2SAT 95–100
--- NOTE | 2022-12-13 07:56 | PM.PNCARD ---
Progress Note: A&P Assessment and Plan (1) PAF (paroxysmal atrial fibrillation): Code(s): I48.0 - Paroxysmal atrial fibrillation Status: Acute Assessment and Plan: Started Sotalol 80 mg every 12 hours. Check EKG 1-2 hours after each dose to check QT interval. Started Eliquis 5 mg BID for [id number] 3. Decreased Sotalol 40 mg every 12 hours due to bradycardia at 40's bpm. Anticipate 1 more night stay. (2) Dyslipidemia: Code(s): E78.5 - Hyperlipidemia, unspecified Status: Acute Assessment and Plan: On Atorvastatin. Subjective Date/time seen: 12/13/22 07:56 Interval history: Denies chest pain, sob, palpitations. Exam Const: General: cooperative, healthy appearing and comfortable Orientation/consciousness: oriented to person, oriented to place and oriented to time Resp: Auscultation: clear to auscultation bilaterally, no crackles, no rales, no rhonchi and no wheezes Cardio: Rate: bradycardic Rhythm: regular rhythm Heart sounds: no murmurs Peripheral pulses: dorsalis pedis present Neuro: General: oriented to person, oriented to place and oriented to time Extrem: Right lower extremity: no edema Left lower extremity: no edema Objective Data Vital Signs Vital Signs: Vital Signs - 24 hr 12/12/22 13:18 12/12/22 16:00 12/12/22 14:00 Temperature 98.2 F Pulse Rate 61 70 59 L Respiratory Rate 18 Blood Pressure 129/65 Pulse Oximetry 100 Oxygen Delivery 12/12/22 16:00 12/12/22 16:00 12/12/22 18:00 Temperature Pulse Rate 59 L 61 Respiratory Rate Blood Pressure Pulse Oximetry Oxygen Delivery Room Air 12/12/22 20:27 12/12/22 20:00 12/12/22 20:00 Temperature 97.8 F Pulse Rate 57 L 52 L 52 L Respiratory Rate 16 Blood Pressure 122/72 Pulse Oximetry 97 Oxygen Delivery 12/12/22 22:00 12/12/22 20:00 12/12/22 23:05 Temperature Pulse Rate 52 L Respiratory Rate 14 Blood Pressure Pulse Oximetry Oxygen Delivery Room Air [employer] 12/12/22 23:58 12/13/22 00:00 12/13/22 00:00 Temperature 97.1 F L Pulse Rate 50 L 48 L Respiratory Rate 16 Blood Pressure 126/64 Pulse Oximetry 98 Oxygen Delivery Room Air 12/13/22 02:00 12/13/22 04:00 12/13/22 04:00 Temperature Pulse Rate 45 L 44 L Respiratory Rate Blood Pressure Pulse Oximetry Oxygen Delivery Room Air 12/13/22 04:00 12/13/22 06:00 12/12/22 13:28 Temperature 97.6 F Pulse Rate 45 L 47 L 61 Respiratory Rate 16 Blood Pressure 120/60 Pulse Oximetry 95 Oxygen Delivery Intake/Output Intake/Output: Intake & Output 12/10/22 12/11/22 12/12/22 12/13/22 23:59 23:59 23:59 23:59 Intake Total 240 Balance 240 Meds/Results Medications: Active Medications Generic Name Dose Route Start Last Admin Trade Name Freq PRN Reason Stop Dose Admin Amlodipine Besylate 5 mg 12/13/22 09:00 Amlodipine Besylate 5 Mg Tablet PO DAILY [facility] Apixaban 5 mg 12/12/22 21:00 12/12/22 20:26 Apixaban 5 Mg Tablet PO 5 mg Q12HR GARCÍA Administration Ascorbic Acid 1,000 mg 12/13/22 09:00 Ascorbic Acid 500 Mg Tablet PO DAILY GARCÍA Atorvastatin Calcium 20 mg 12/12/22 21:00 12/12/22 20:26 Atorvastatin 20 Mg Tablet PO 20 mg QHS GARCÍA Administration Cyanocobalamin 250 mcg 12/13/22 09:00 Cyanocobalamin 250 Mcg Tablet PO 01/12/23 08:59 DAILY [facility] Fluticasone Propionate 2 spray 12/12/22 15:35 Fluticasone Propionate 0.05% Na Spr 16 Gm Btl (*Bkc) NASAL PRN PRN Allergy Symptoms Lactobacillus Acidophilus 1 tablet 12/13/22 09:00 Acidophilus/Bulgaricus Chewable Tablet PO 01/12/23 08:59 DAILY [facility] Magnesium Oxide 400 mg 12/13/22 09:00 Magnesium Oxide 400 Mg Tablet PO DAILY GARCÍA Meloxicam 15 mg 12/13/22 09:00 Meloxicam 7.5 Mg Tablet PO 01/12/23 08:59 DAILY [facility] Multivitamins/Calcium 1 tablet 12/13/22 09:00 Therapeutic Multivitamins/Mi
[2022-12-13] MEDS: ASCORBIC ACID 500 MG TABLET 1000 MG PO (08:53)
[2022-12-13] MEDS: APIXABAN 5 MG TABLET PO ×2 (08:53→20:29)
[2022-12-13] MEDS: ACIDOPHILUS/BULGARICUS CHEWABLE TABLET 1 TABLET PO (08:53)
[2022-12-13] MEDS: amLODIPine BESYLATE 5 MG TABLET PO (08:53)
[2022-12-13] MEDS: MAGNESIUM OXIDE 400 MG TABLET PO (08:54)
[2022-12-13] MEDS: OPTI-GEN TAB 1 TABLET PO (08:55)
[2022-12-13] MEDS: MELOXICAM 7.5 MG TABLET 15 MG PO (08:55)
[2022-12-13] MEDS: PANTOPRAZOLE 40 MG TABLET PO (08:56)
[2022-12-13] MEDS: POTASSIUM CHLORIDE 10 MEQ TABLET.ER PO (08:56)
[2022-12-13] MEDS: ramipriL 5 MG CAPSULE 10 MG PO (08:57)
[2022-12-13] MEDS: SPIRONOLACTONE 25 MG TABLET PO (08:57)
[2022-12-13] MEDS: TAMSULOSIN HCL 0.4 MG CAPSULE PO (08:57)
[2022-12-13] MEDS: CYANOCOBALAMIN 250 MCG TABLET PO (08:57)
[2022-12-13] MEDS: SOTALOL HCL 40 MG TABLET PO ×2 (08:58→20:28)
[2022-12-13] MEDS: THERAPEUTIC MULTIVITAMINS/MINERALS TAB (*BKC) 1 TABLET PO (08:58)
--- NOTE | 2022-12-13 20:07 | ECG_ITS ---
Measurements Intervals [place] Rate: 54 P: 30 UT: 158 QRS: 65 QRSD: 127 T: 34 QT: 435 QTc: 415 Interpretive Statements SINUS BRADYCARDIA ATRIAL PREMATURE COMPLEX RIGHT BUNDLE BRANCH BLOCK ABNORMAL ECG COMPARED TO ECG 12/12/2022 22:45:00 SINUS BRADYCARDIA NOW PRESENT Electronically Signed On 12-14-2022 6:34:02 CONTRACT NEGOTIATOR by Bridger Schmidt D.O.
[2022-12-13] MEDS: rOPINIRole HCL 1 MG TABLET 2 MG PO (20:29)
[2022-12-13] MEDS: ATORVASTATIN 20 MG TABLET PO (20:29)
[2022-12-13] MEDS: ACETAMINOPHEN 325 MG TABLET 650 MG PO (22:43)
[2022-12-14] VITALS (9 sets, daily range): BP systolic 113–123; BP diastolic 70–71; PULSE 47–59; RESP 16–18; TEMP 36.3–36.6; O2SAT 98–100
[2022-12-14 04:46] LABS: Hematocrit 44.8 % (42.0-52.0); Hemoglobin 14.9 g/dL (14.0-18.0); Mean Corpuscular HGB Conc 33.3 g/dl (32-36); Mean Corpuscular Hemoglobin 31.8 pg (26-34); Mean Corpuscular Volume 95.7 fl (80-100); Mean Platelet Volume 10.4 fl (7.4-10.4); Platelet Count Result 206 k/mm3 (150-375); Red Blood Count 4.68 M/mm3 (4.6-6.20); Red Cell Distribution Width 13.6 % (11.5-14.5); White Blood Count 10.2 K/mm3 (4.5-10.0)
[2022-12-14 05:00] LABS: INR 1.1; Prothrombin Time 13.9 Seconds (11.1-14.7)
[2022-12-14 05:40] LABS: Alanine Aminotransferase 51 U/L (6-50); Albumin Level 3.3 g/dL (3.5-5.1); Alkaline Phosphatase 79 U/L (38-126); Anion Gap 2 mmol/L (8-16); Aspartate Amino Transferase 24 U/L (17-59); Bilirubin,Total 0.9 mg/dL (0.2-1.3); Blood Urea Nitrogen 25 mg/dL (9-20); Calcium 8.1 mg/dL (8.4-10.2); Carbon Dioxide 26 mmol/L (22-30); Chloride 106 mmol/L (98-107); Estimated CRCL calculation 65 ml/min; Estimated Glomerular Filt Rate > 60; Glucose 118 mg/dL (65-110); Potassium 4.2 mmol/L (3.4-5.0); Sodium 134 mmol/L (137-145)
--- NOTE | 2022-12-14 08:01 | PM.DS ---
DS: Admitting Diagnosis Discharge Date 12/14/22 Admitting Diagnosis Rapid atrial fibrillation, sotalol loading DS: Discharge Diagnosis Discharge Diagnosis Plan Rapid atrial fibrillation, sotalol loading DS: Summary Hospital Course Reason for hospitalization: Rapid atrial fibrillation, sotalol loading Hospital Course: 77 yr old man directly admitted from stress lab for recurrence of rapid atrial fibrillation and sotalol loading. Upon admission he had spontaneously cardioverted. He was started with Sotalol 80 mg every 12 hours, and HR went to mid 40's bpm and Sotalol decreased to 40 mg every 12 hours and HR improved to 50-60's bpm. EKG shows normal QT interval. He complained of chronic shoulder pain that he sees Dr. Gomez for and supposed to have MRI of it. Denies chest pain, sob, orthopnea, PND, edema, dizziness, palpitations. Patient is to take Sotalol 40 mg BID and Eliquis 5 mg BID. May d/c home. F/U with me in 1-2 weeks. Status at Discharge Functional status at discharge: independent ambulation Overall status at discharge: patient is back to baseline Time Spent with Patient Time attestation: Total time spent providing and/or coordinating discharge services: Time spent: Less than 30 minutes DS: Data Data Completed and Pending Labs on day of discharge: Labs from last 24 hours 12/14/22 12/14/22 12/14/22 05:05 04:41 04:41 WBC 10.2 H RBC 4.68 Hgb 14.9 Hct 44.8 MCV 95.7 MCH 31.8 MCHC 33.3 RDW 13.6 Plt Count 206 MPV 10.4 PT 13.9 INR 1.1 Sodium 134 L Potassium 4.2 Chloride 106 Carbon Dioxide 26 Anion Gap 2 L BUN 25 H Creatinine 0.90 Estim Creat Clear Calc 65 Estimated GFR > 60 Glucose 118 H Calcium 8.1 L Total Bilirubin 0.9 AST 24 ALT 51 H Alkaline Phosphatase 79 Total Protein 6.0 L Albumin 3.3 L Discharge Plan Discharge Discharging Clinician: Bridger Schmidt Patient Disposition: Home, Self-Care Activity: as tolerated Diet: regular Patient Instructions: Antibiotic Form Stand Alone Forms: General Discharge Information Follow-up/Referrals: Bridger Schmidt, [Physician] - (F/U 1-2 weeks) Discharge Medications: New sotalol [Sotalol AF] 80 mg tablet 40 mg PO BID Qty: 30 5RF Eliquis 5 mg Tablet 5 mg PO Q12HR Qty: 60 5RF Continued meloxicam 15 mg tablet 15 mg PO DAILY Ocuvite Adult 50 Plus 250-5-1 mg capsule 1 cap PO DAILY amlodipine 5 mg tablet 5 mg PO DAILY fluticasone propionate [Allergy Relief (fluticasone)] 50 mcg/actuation spray,suspension 2 spray NASAL PRN PRN (Reason: Allergy Symptoms) coQ10 (ubiquinol) 200 mg Capsule 400 mg PO DAILY [facility] 750 mg-100 mg- 1.65 mg-108 mg Tablet 1 tablet PO DAILY cyanocobalamin (vitamin B-12) 100 mcg Tablet 200 mcg PO DAILY turmeric 400 mg Capsule 1,000 mg PO BID Neuriva Original 50-50 mg Tablet,Chewable 1 tablet PO DAILY Prilosec OTC 20 mg tablet,delayed release (DR/EC) 20 mg PO DAILY ascorbic acid (vitamin C) 1,000 mg tablet 1 gm PO DAILY lutein-zeaxanthin [Ocuvite Lutein 25] 25-5 mg capsule 1 cap PO DAILY Men 50 Plus Multivitamin 300-600-300 mcg tablet 1 tablet PO DAILY magnesium oxide 400 mg magnesium tablet 400 mg PO DAILY cinnamon bark [Cinnamon] 500 mg capsule 1,000 mg PO BID Probiotic Complex (with FOS) 10 billion cell-100 mg capsule 100 mg PO DAILY (DME) blood-glucose meter Kit See Rx Instructions .ROUTE .MEDSUPPLY Qty: 1 0RF Rx Instructions: Check blood sugars once a day (DME) Blood Glucose Test Strip See Rx Instructions .ROUTE .MEDSUPPLY Qty: 100 1RF Rx Instructions: use to test blood sugars once a day (DME) Contour Next Test Strips Strip See Rx Instructions .ROUTE .MEDSUPPLY Qty: 100 3RF Rx Instructions: Use 1 strip to check blood sugar daily (DME) la
[2022-12-14] MEDS: ramipriL 5 MG CAPSULE 10 MG PO (08:12)
[2022-12-14] MEDS: PANTOPRAZOLE 40 MG TABLET PO (08:12)
[2022-12-14] MEDS: ASCORBIC ACID 500 MG TABLET 1000 MG PO (08:12)
[2022-12-14] MEDS: MAGNESIUM OXIDE 400 MG TABLET PO (08:12)
[2022-12-14] MEDS: MELOXICAM 7.5 MG TABLET 15 MG PO (08:12)
[2022-12-14] MEDS: POTASSIUM CHLORIDE 10 MEQ TABLET.ER PO (08:12)
[2022-12-14] MEDS: OPTI-GEN TAB 1 TABLET PO (08:12)
[2022-12-14] MEDS: amLODIPine BESYLATE 5 MG TABLET PO (08:12)
[2022-12-14] MEDS: CYANOCOBALAMIN 250 MCG TABLET PO (08:12)
[2022-12-14] MEDS: APIXABAN 5 MG TABLET PO (08:12)
[2022-12-14] MEDS: ACIDOPHILUS/BULGARICUS CHEWABLE TABLET 1 TABLET PO (08:12)
[2022-12-14] MEDS: THERAPEUTIC MULTIVITAMINS/MINERALS TAB (*BKC) 1 TABLET PO (08:13)
[2022-12-14] MEDS: TAMSULOSIN HCL 0.4 MG CAPSULE PO (08:13)
[2022-12-14] MEDS: SOTALOL HCL 40 MG TABLET PO (08:15)
[2022-12-14] MEDS: SPIRONOLACTONE 25 MG TABLET PO (09:30)
--- NOTE | 2022-12-14 09:30 | ECG_ITS ---
Measurements Intervals [place] Rate: 54 P: 25 [place]: 159 QRS: 36 QRSD: 129 T: 43 QT: 442 QTc: 421 Interpretive Statements SINUS BRADYCARDIA RIGHT BUNDLE BRANCH BLOCK ABNORMAL ECG COMPARED TO ECG 12/13/2022 21:34:23 NO SIGNIFICANT CHANGES Electronically Signed On 12-14-2022 10:43:58 DIAMOND DRILLER by Bridger Schmidt D.O.
--- NOTE | 2022-12-14 12:22 | PC.NURSE ---
reviewed discharge paperwork with patient. all questions were answered. Peripheral IV removed. Pt awaiting ride at this time.
== END 2022-12-14 13:20 | disposition home or self-care (01) ==
PROVIDERS: Admitting Provider Internal Medicine Cardiovascular Disease; PCP Family Medicine; Visit Provider Internal Medicine Cardiovascular Disease
DX: I48.0 Paroxysmal atrial fibrillation (principal); Z51.81 Encounter for therapeutic drug level monitoring; E78.5 Hyperlipidemia, unspecified; I47.1 Supraventricular tachycardia; I10 Essential (primary) hypertension; R07.9 Chest pain, unspecified; K21.9 Gastro-esophageal reflux disease without esophagitis; R94.31 Abnormal electrocardiogram [ECG] [EKG]; G47.33 Obstructive sleep apnea (adult) (pediatric); Z99.89 Dependence on other enabling machines and devices; H40.9 Unspecified glaucoma; M15.9 Polyosteoarthritis, unspecified; Z82.49 Family history of ischemic heart disease and other diseases of the circulatory system; Z79.51 Long term (current) use of inhaled steroids; Z79.82 Long term (current) use of aspirin; Z79.52 Long term (current) use of systemic steroids; Z79.899 Other long term (current) drug therapy
CPT/HCPCS: 36415; 80053; 85027; 85610; 93005; 93306; 93351; 94002; 94003; 94660; A9270; G0378; G0379

== ENCOUNTER 2022-12-15 15:05 | Emergency (ER) | payer OTHER, SELFPAY ==
--- NOTE | ~2022-12-15 | XR_ITS ---
XR shoulder LT min 2V DATE: 12/15/2022 16:14 INDICATION: Left shoulder pain TECHNIQUE: 4 views COMPARISON: None FINDINGS: Cervical spondylosis is noted incidentally. Normal alignment at the acromioclavicular and glenohumeral joints. There is mild osteoarthritis at th e glenohumeral joint. No fracture or dislocation, periosteal reaction or bone destruction of the left shoulder. No abnormal left shoulder soft tissue calcification. IMPRESSION: Mild left glenohumeral osteoarthritis Cervical spondylosis Reviewed, dictated and finalized at location B. MOLDING MACHINE OPERATOR
[2022-12-15 15:41] VITALS: BP 108/56; PULSE 54; RESP 18; TEMP 36.6; O2SAT 98
--- NOTE | 2022-12-15 15:41 | ED.EXTPRO ---
HPI - Extremity Problem General Chief complaint: Extremity Injury, Upper Stated complaint: lt shoulder pain Time Seen by Provider: 12/15/22 15:41 Source: patient, RN notes reviewed and old records reviewed Mode of arrival: ambulatory Limitations: no limitations History of Present Illness HPI Narrative: 77-year-old male presents to the [facility] with left shoulder pain. States 5 days ago he felt a tear in his shoulder when he was pulling on some blankets in bed. Patient just discharged from the hospital yesterday no treatment prior to arrival patient reports history of chronic right shoulder pain but the left shoulder is a new injury since pulling his blanket for Onset (ago): day(s) (5) Related Data Home Medications Medication Instructions Recorded Confirmed Lactobac 100 mg PO DAILY 09/23/19 12/15/22 47-B.animal,bifid-S.thermo 10 billion cell-FOS 100 mg capsule (Probiotic Complex (with FOS)) ascorbic acid (vitamin C) 1,000 mg 1 gm PO DAILY 09/23/19 12/15/22 tablet cinnamon bark 500 mg capsule 1,000 mg PO BID 09/23/19 12/15/22 (Cinnamon) lutein 25 mg-zeaxanthin 5 mg 1 cap PO DAILY 09/23/19 12/15/22 capsule (Ocuvite Lutein) magnesium oxide 400 mg PO DAILY 09/23/19 12/15/22 avaaearl-htk-rzbet acid 300 1 tablet PO DAILY 09/23/19 12/15/22 mcg-lycopene 600 mcg-lutein 300 mcg tablet (Men 50 Plus Multivitamin) omeprazole magnesium 20 mg 20 mg PO DAILY 09/23/19 12/15/22 tablet,delayed release (Prilosec OTC) coQ10 (ubiquinol) 200 mg capsule 400 mg PO DAILY 01/28/21 12/15/22 cyanocobalamin (vitamin B-12) 100 200 mcg PO DAILY 01/28/21 12/15/22 mcg tablet fluticasone propionate 50 2 spray intranasal PRN PRN Allergy 01/28/21 12/15/22 mcg/actuation nasal Symptoms spray,suspension (Allergy Relief (fluticasone)) glucosam 750 mg-chondroi 100 1 tablet PO DAILY 01/28/21 12/15/22 mg-hyalur 1.65 mg-CF borate 108 mg tablet ([employer]) turmeric 400 mg capsule 1,000 mg PO BID 01/28/21 12/15/22 vit C,E,zinc,copper-ouexe1t 250 1 cap PO DAILY 04/19/21 12/15/22 mg-lutein 5 mg-zeaxanthin 1 mg capsule (Ocuvite Adult 50 Plus) coffee extract 50 mg-phosphatidyl 1 tablet PO DAILY 11/01/21 12/15/22 serine 50 mg chewable tablet (Neuriva Original) amlodipine 5 mg tablet 5 mg PO DAILY 10/03/22 12/15/22 meloxicam 15 mg tablet 15 mg PO DAILY 12/05/22 12/15/22 Allergies Allergy/AdvReac Type Severity Reaction Status Date / Time No Known Drug Allergies Allergy Unknown Unknown Verified 12/15/22 15:48 Review of Systems Review of Systems: All systems reviewed & are unremarkable except as noted in HPI and below Constitutional: Constitutional: Reports no additional constitutional complaints Eyes: Eyes: Reports no additional eye complaints ENT: Reports system reviewed and no additional complaints, except as documented Cardiovascular: Cardiovascular: Reports no additional cardiovascular complaints, Denies chest pain and Denies dyspnea Respiratory: Respiratory: Reports no additional respiratory complaints, Denies chest congestion, Denies cough and Denies dyspnea Gastrointestinal: Gastrointestinal: Reports no additional gastrointestinal complaints, Denies abdominal pain, Denies nausea and Denies vomiting Musculoskeletal: Musculoskeletal: Reports as per HPI, Reports arthralgias ( left shoulder) and Reports limited range of motion ( shoulder left) Integumentary/Breasts: Skin/Breast: Reports system reviewed and no additional complaints, except as docu Neurologic: Reports system reviewed and no additional complaints, except as documented Psychiatric: Psychiatric: Reports no additional psychiatric complaints Allergic/Immunologic: Allergic/Immunologic: Reports no additional allergic/immunologic complaints [facility] Past Medical History Medical History Benign essential hypertension (~2009) BPH (benign prostatic hyperplasia) (~2017) Dysl
== END 2022-12-15 16:30 | disposition home or self-care (01) ==
PROVIDERS: Emergency Provider Nurse Practitioner; PCP Family Medicine
DX: M19.012 Primary osteoarthritis, left shoulder (principal); E78.5 Hyperlipidemia, unspecified; I10 Essential (primary) hypertension; Z79.1 Long term (current) use of non-steroidal anti-inflammatories (NSAID); Z87.891 Personal history of nicotine dependence
CPT/HCPCS: 73030; 99213; G0463

== ENCOUNTER 2023-01-02 07:03 | Outpatient (CLI) | payer OTHER, SELFPAY ==
--- NOTE | ~2023-01-02 | MR_ITS ---
MRI of the left shoulder Technique: Axial proton-density fat-sat images, coronal proton density fat-sat and T2 fat-sat images, and sagittal T1-weighted and T2 fat-sat images were acquired. Clinical History: Pain Findings: There is mild AC joint degenerative change. Minimal subacromial spur present. Coracoclavicu lar, coracoacromial, and coracohumeral ligaments appear intact. There are complete, full-thickness tears involving the entire supraspinatus and infraspinatus tendons , which are retracted to the 12:00 position of the humeral head. Fluid-filled gap measures approximat kalpana 3.4 x 4.4 cm in extent. Subscapularis tendon demonstrates moderate to severe tendinosis distally, but no definite tear. Tendon of long head of the biceps appears intact, with probable intra-articula r tendinosis. No definite labral tear identified. Inferior glenohumeral ligament is intact. There is small glenohumeral joint effusion, with fluid pass ing through the rotator cuff defect into the and subacromial/subdeltoid bursa. No muscle atrophy or e brea evident. No degenerative change of the humeral head. Humeral head is probably minimally high rid ing. Impression: Complete, full-thickness tears involving the entire supraspinatus and infraspinatus tendons, as jose g led above. Mild high riding humeral head with small glenohumeral joint effusion. Subscapularis and biceps tendinosis. Reviewed, dictated and finalized at [facility]. Impression: Complete, full-thickness tears involving the entire supraspinatus and infraspin atus tendons, as detailed above. Mild high riding humeral head with small glenohumeral joint effusion. Subscapularis and biceps tendinosis.
== END 2023-01-02 07:04 | disposition home or self-care (01) ==
PROVIDERS: PCP Family Medicine; Visit Provider Nurse Practitioner Family
DX: M25.512 Pain in left shoulder (principal)
CPT/HCPCS: 73221

== ENCOUNTER 2023-02-02 07:47 | Outpatient (CLI) | payer OTHER, SELFPAY | END 2023-02-02 07:48 | disposition home or self-care (01) | LOC: ANHSURGERY 07:52 | PROVIDERS: PCP Family Medicine; Visit Provider Orthopaedic Surgery | DX: M12.819 Other specific arthropathies, not elsewhere classified, unspecified shoulder (principal); Z01.818 Encounter for other preprocedural examination | CPT/HCPCS: 87081 ==

== ENCOUNTER 2023-02-12 00:05 | Day surgery (SDC) | payer OTHER, SELFPAY ==
[2023-02-01 14:58] VITALS: BMI 27.9
--- NOTE | 2023-02-01 15:15 | PC.NURSE ---
Addendum entered by Yamilet James RN 02/02/23 07:39: ALSO, HOLD MELOXICAM 7 DAYS PRE-OP, LAST DOSE 02/05/23. PT INSTRUCTED THROUGH WRITTEN FORM. Original Note: Report to the Outpatient Waiting Room, entrance under the green pavilion located off [facility], at time _0600_ on date _02/12/23_. Planned Procedure Time: _0730_. Time changes happen often and if your time is changed the preop area will call you the afternoon before. - You and your visitor will be asked to self-screen and do not enter if you have any COVID symptoms. - A mask is optional within the hospital at this time. Patients may have clear liquids (water, carbonated beverages, clear teas, apple juice) until 3 hours prior to surgery (0430 AM) with a maximum of 20 ounces. - No food from midnight until time of surgery Take the following medications with a SIP of water the morning of surgery: _AMLODIPINE, SOTALOL_ DO NOT STOP ANY OF YOUR OTHER PRESCRIPTION MEDICATIONS PRIOR TO SURGERY ?EXCEPT THE FOLLOWING Medications to discontinue - _APIXABAN (ELIQUIS) PER DR. GRAVES'S INSTRUCTIONS_ Medications to discontinue per ANESTHESIA - _ALL VITAMINS AND SUPPLEMENTS 3 DAYS PRIOR TO SURGERY, Date to take last dose 02/08/23_ Please no make-up, nail yoruba, hairspray, perfume, deodorant, or body powder the day of surgery. No jewelry (including any body piercings) or valuables the day of surgery, leave them at home. Please take a shower or bath the night before, or the morning of, surgery with an antibacterial soap. Wear comfortable, loose fitting clothing. - Jewelry must be removed prior to entering the operating room. Rings and piercings that are not removed may be cut off. - The hospital will not accept responsibility for valuables. - Please leave all valuables, including medications, at home the day of surgery. If you are going home after surgery, a licensed hazardous materials driver must drive you home. - NO public transportation without another adult if you receive anesthesia. - We recommend that an adult stay with you for 24 hours following discharge. - We also recommend that you do not drive, make important decision, drink alcoholic beverages, or take any drugs that were not prescribed by your health care provider for at least 24 hours after your discharge time. Follow any additional instructions given to you from your surgeon. If you or anyone in your household have experienced Covid symptoms in the past week, please notify your surgeon or the nurse liaison at the phone number below for possible testing. Telephone instructions given to _PATIENT_and asked if any additional questions and then verbalized understanding. Patient advised to call surgeon office or pre surgery nurse liaison [phone] if any additional questions.
--- NOTE | 2023-02-09 07:45 | PM.IMHP ---
H&P: HPI History of Present Illness Date/Time: 02/09/23 07:45 Chief Complaint: Massive rotator cuff tear left shoulder Narrative: 77-year-old male patient of Dr. Guerrero who presents today for arthroscopy of left shoulder with open rotator cuff repair. Patient started having symptoms in left shoulder in early December. He states he just pulling the covers up in bed when he heard a ripping sound in the left shoulder. He has had significant weakness since then. Patient MRI scan in December which demonstrated a large retracted full-thickness tear of the rotator cuff tendon. There was diffuse edema in the infra and supraspinatus muscle bellies consistent with acute tear. Patient has significant weakness in the shoulder at this point. Surgical option of repair was discussed with him and patient felt that if this was repairable he would like to proceed with surgery. He presents today for that. Review of Systems Review of Systems: All systems reviewed & are unremarkable except as noted in HPI and below PMFSH Past Medical History Medical History Benign essential hypertension (~2009) BPH (benign prostatic hyperplasia) (~2016) Dyslipidemia Environmental allergies Erectile dysfunction GERD (gastroesophageal reflux disease) (~2009) Glaucoma (~2014) History of colon polyps Hypokalemia Hypomagnesemia RITA on CPAP Osteoarthritis involving multiple joints on both sides of body Prediabetes RLS (restless legs syndrome) (~2017) Rosacea (~2012) Rotator cuff disorder (~2018) Screening for AAA (abdominal aortic aneurysm) Negative for AA (09/2020) Surgical History Surgical History H/O elbow surgery left cubital tunnel release - 03/27 History of cataract surgery left eye - 03/27 History of left knee replacement 02/2021 History of lumbar surgery 11/27 L3,4,5 History of repair of right rotator cuff 06/2019 Total knee replacement status (~2020) Family History Family History Mother Family history of cardiovascular disease Family history of emphysema Father Family history of cardiovascular disease Grandparent , cancer No problems noted. Grandparent Diabetes mellitus dx'd in her 20's. treated w/ insulin Sibling Malignant neoplasm of prostate Diabetes mellitus Social History Social History Social History: Caffeine-Daily Years smoked: 9 Smoking status: Former smoker Tobacco type: pipe Second hand tobacco smoke exposure: No Smoking end date: 12/23/71 Additional smoking assessment comments: DENIES ANY FORM OF TOBACCO USE Alcohol intake: former Alcohol use details: DRANK UP TO PT WEEKLY FOR 5 YRS - QUIT 12/23/1971 Substance use: never Substance use type: does not use Lack of Transportation: No Lack of Food: Never True Current Housing: I Have Housing Concerned About Future Housing: No Difficulty Paying Gas/Electric Bills: No Difficulty Paying for Meds: No Currently Unemployed: No Education: Decline to Answer Difficulty w/ Childcare or Family Care: No Living arrangements: with family Occupation/Education: occupation 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
[2023-02-12] VITALS (9 sets, daily range): BP systolic 107–141; BP diastolic 64–89; PULSE 55–81; RESP 11–16; TEMP 36.1–36.4; O2SAT 95–98
[2023-02-12] MEDS: ACETAMINOPHEN 500 MG TABLET 1000 MG PO (06:34)
[2023-02-12] MEDS: LACTATED RINGERS 1,000 ML 30 ML IV CONT ×2 (06:47→11:56)
[2023-02-12] MEDS: KETOROLAC 15 MG/ML VIAL (*BKC) IV PUSH (06:51)
--- NOTE | 2023-02-12 06:59 | WPDANESEPPF ---
Anes - Initial Pre Proc Eval Procedure: Operation Date: 02/12/23 07:30 Proposed Procedures p Left Shoulder Arthroscopic Debridement, Mini Open Rotator Cuff Repair, Possible Biceps Tenodesis, Possible Dermal Allograft, Proceed as Indicated - Shashank Cason MD Date/Time: 02/12/23 06:59 Surgeon: Shashank Cason MD Pre Op Diagnosis: Lt Shoulder Accute/Chronic Massive Rot Cuff Tear Patient Data Age: 77 Gender: M Height: 1.8 m Weight: 90.1 kg Last Vital Signs Temp 36.4 C 02/12/23 06:13 Pulse 55 L 02/12/23 06:13 Resp 16 02/12/23 06:13 BP 141/69 H 02/12/23 06:13 Pulse Ox 98 02/12/23 06:13 O2 Del Method Room Air 02/12/23 06:13 Allergies Allergy/AdvReac Type Severity Reaction Status Date / Time No Known Drug Allergies Allergy Unknown Unknown Verified 02/12/23 06:25 Home Medications Medication Instructions Recorded Confirmed Type Lactobac 100 mg PO DAILY 09/23/19 02/12/23 History 47-B.animal,bifid-S.thermo 10 billion cell-FOS 100 mg capsule (Probiotic Complex (with FOS)) ascorbic acid (vitamin C) 1,000 mg 1 gm PO DAILY 09/23/19 02/12/23 History tablet cinnamon bark 500 mg capsule 1,000 mg PO BID 09/23/19 02/12/23 History (Cinnamon) lutein 25 mg-zeaxanthin 5 mg 1 cap PO DAILY 09/23/19 02/12/23 History capsule (Ocuvite Lutein) magnesium oxide 400 mg PO DAILY 09/23/19 02/12/23 History rnycncef-slv-eqffc acid 300 1 tablet PO DAILY 09/23/19 02/12/23 History mcg-lycopene 600 mcg-lutein 300 mcg tablet (Men 50 Plus Multivitamin) omeprazole magnesium 20 mg 20 mg PO DAILY 09/23/19 02/12/23 History tablet,delayed release (Prilosec OTC) blood-glucose meter #1 ea 11/05/19 02/01/23 Rx coQ10 (ubiquinol) 200 mg capsule 400 mg PO DAILY 01/28/21 02/12/23 History cyanocobalamin (vitamin B-12) 100 200 mcg PO DAILY 01/28/21 02/12/23 History mcg tablet fluticasone propionate 50 2 spray intranasal PRN PRN Allergy 01/28/21 02/12/23 History mcg/actuation nasal Symptoms spray,suspension (Allergy Relief (fluticasone)) glucosam 750 mg-chondroi 100 1 tablet PO DAILY 01/28/21 02/12/23 History mg-hyalur 1.65 mg-CF borate 108 mg tablet (Move Free SegundoHogar) turmeric 400 mg capsule 1,000 mg PO BID 01/28/21 02/12/23 History vit C,E,zinc,copper-njrgh3x 250 1 cap PO DAILY 04/19/21 02/12/23 History mg-lutein 5 mg-zeaxanthin 1 mg capsule (Ocuvite Adult 50 Plus) blood sugar diagnostic (Contour #100 ea 10/14/21 02/01/23 Rx Next Test Strips) coffee extract 50 mg-phosphatidyl 1 tablet PO DAILY 11/01/21 02/12/23 History serine 50 mg chewable tablet (Neuriva Original) lancets (Microlet Lancet) #100 ea 11/08/21 02/01/23 Rx amlodipine 5 mg tablet 5 mg PO DAILY 10/03/22 02/12/23 History atorvastatin 20 mg tablet 20 mg PO QHS #90 tabs 11/06/22 02/12/23 Rx meloxicam 15 mg tablet 15 mg PO DAILY 12/05/22 02/12/23 History apixaban 5 mg tablet (Eliquis) 5 mg PO Q12HR #60 tabs 12/14/22 02/12/23 Rx sotalol 80 mg tablet (Sotalol AF) 40 mg PO BID #30 tabs 12/14/22 02/12/23 Rx zinc acetate 50 mg (zinc) capsule 50 mg PO DAILY 12/18/22 02/12/23 History (Galzin) ramipril 10 mg capsule 10 mg PO DAILY #90 caps 01/05/23 02/12/23 Rx potassium chloride 10 mEq 10 meq PO DAILY #90 tabs 01/08/23 02/12/23 Rx tablet,extended release ropinirole 2 mg tablet 2 mg PO QHS #90 tabs 01/08/23 02/12/23 Rx spironolactone 25 mg tablet 25 mg PO DAILY #90 tabs 01/08/23 02/12/23 Rx tamsulosin 0.4 mg capsule 0.4 mg PO DAILY #90 caps 01/08/23 02/12/23 Rx pyridoxine (vitamin B6) 20 mg DAILY 02/01/23 02/12/23 History vitamin E (dl, acetate) 180 mg 180 mg PO DAILY 02/01/23 02/12/23 History (400 unit) capsule Patient hx anesthesia problems: none Family hx anesthesia problems: none Results Review: All pre-operative results and documents have been reviewed as part of the pre-operative evaluation. [facility] Past Medical History Medical History (Reviewed 02/12/23 @ 06:59 by Rob Mendoza
--- NOTE | 2023-02-12 07:00 | SUR.PREOP ---
pt states has incentive spirometer at home and aware how to use,recomfirmed instructions.
--- NOTE | 2023-02-12 07:11 | WPDHPUPDATE1 ---
History and Physical Update Update Date/Time: 02/12/23 07:11 History and Physical has been reviewed, including an updated exam of the patient. There are NO changes in the patient's condition. Risks, benefits, and alternatives have been discussed and questions answered. Possible dermal allograft and biceps tenodesis discussed. Patient agrees to proceed with procedure.
--- NOTE | 2023-02-12 07:20 | WPDANESPNB ---
Anes - Peripheral Nerve Block Date/Time: 02/12/23 07:20 I have discussed with the patient/family/POA the placement of a peripheral nerve block for post-operative pain management, including associated risks, benefits, complications, and side effects. Alternative methods of post-operative analgesia were detailed. Questions were solicited and answers provided to the satisfaction of the patient/family/POA. Time-Out: A pre-procedural Time-Out was completed immediately before starting the procedure and confirmed: Patient Identification, Site, Procedure, Patient Position and the Availability of Requisite Equipment. Clinical Indications: Acute post-operative pain management requested by the operative surgeon. Nerve Block Insertion Note Anes-nerve block: interscalene left Patient position: supine Skin prep: chlorhexidine Needle: 22 gauge, stimulating, insulated echogenic needle. Needle length: 50 mm Technique: ultrasound Injectate: bupivacaine 0.5% with epi 5 mcg/ml (30cc no epi) and dexamethasone (mg) (8) Observations: tolerated well Complications: none Procedure start time:: 709 Procedure end time:: 719
[2023-02-12] MEDS: ceFAZolin 2 GM/D5W 50 ML 2 GM/50 ML BAG IVPB (07:25)
[2023-02-12] MEDS: ceFAZolin SODIUM 1 GM VIAL (08:12)
[2023-02-12] MEDS: ceFAZolin SODIUM 1 GM VIAL 2 GM IV PUSH (11:21)
--- NOTE | 2023-02-12 11:45 | W.PM.PROC2 ---
Procedure Note - Detailed Date of Procedure 02/12/23 Pre-op Diagnosis Lt Shoulder Accute/Chronic Massive Rot Cuff Tear Post-op Diagnosis Same (And high-grade partial tearing long head of biceps tendon) Procedure Performed Arthroscopic limited debridement minimal acromioplasty the open both upper repair biceps tenodesis and rotator cuff repair augmentation with acellular dermal allograft Surgeon Shashank Cason MD Cardiovascular Sonographer Sunil Anesthesia General and Regional Description of Procedure Patient was brought to the operating room and general anesthesia was administered. Back in the preop holding area he did receive an interscalene block for postoperative analgesia. He was placed in a beach chair position the head secured in the neutral alignment the left shoulder prepped draped usual fashion. All the skin was covered with Ioban accept the top portion. Posterior portal was placed. Anterior superior portal placed. There was minimal chondromalacia of the humeral head and glenoid. There was extensive maceration of the intra-articular portion of the long of the biceps tendon with high-grade partial tearing. There is degenerative tearing of the labrum. Labral tearing was gently debrided. There was a severely retracted tear of supraspinatus tendon as well as infraspinatus tendon retracted to just lateral to the superior glenoid. The subscapularis tendon had some lower grade articular sided partial thickness tearing with maceration of the undersurface tendon fibers. The CA ligament was debrided off the undersurface of the acromion and minimal smoothing of the undersurface the acromion performed. It a type 2 acromial morphology without significant spur. Insert was removed and the remaining skin covered with Ioban outer gloves were changed. A 2 in longitudinal incision was made from the top the anterior acromion over the tendinous raphe between anterior and middle heads of the deltoid. The raphe was incised for a split of 4 cm. He had a somewhat overhanging acromial process and therefore approximately 1 cm of anterior deltoid was elevated off the anterior acromion for improved exposure. There was a very retracted tear of the supraspinatus and infraspinatus tendons. It looked like there is an acute tear of the anterior cable which was torn from the lateral portion of the subscapularis and the upper portion of the retinaculum covering the bicipital groove as there were mop and fibers at the ends of the medially retracted anterior portion the subscapularis and the upper edge of the rotator cuff interval and bicipital groove. Posteriorly the infraspinatus facet of the greater tuberosity was quite smooth and covered with a shiny fibrin is membrane and infraspinatus was prominently retracted posteriorly with a bulbous lateral smooth surface to the tendon and there was a 3 cm longitudinal split between the infraspinatus and what I thought was probably lower fibers of the infraspinatus rather than teres minor. A 2 cm longitudinal split in a racking Axel retinaculum over the bicipital groove was made and the long head of the biceps delivered. The portion in the bicipital groove had mild maceration the top portion only below this the tendon was in good condition. We placed a marking stitch for planned biceps tenodesis localization. The long of the biceps was released from the superior glenoid under direct vision with a curved Peoples scissors. We placed the arthroscope in the shoulder and debrided the stump of the long of the biceps. Excess intra-articular portion long of the biceps was excised. A banal type suture was made for a distance of 1/2 inches in the distal portion of the long head of the biceps with 2. FiberWire. We then placed the drill for the FiberTak tenodesis button made a drill hole and due to and availability of the proper drill sheath we used an arthroscopic cannula and unfortunately during the impacting of the button this enlarged the hole to a figure of 8
--- NOTE | 2023-02-12 12:04 | PM.OP ---
Procedure Note - Brief Procedure Note - Brief Date of procedure: 02/12/23 Lt Shoulder Accute/Chronic Massive Rot Cuff Tear Procedure performed: Arthroscopic debridement with mini open rotator cuff repair left shoulder. Surgeon: CHRISTIANO Conti Description of procedure: 77-year-old male underwent arthroscopic debridement with mini open rotator cuff repair with allograft patch placement. I was involved procedure including positioning patient on the or table and 1st assisting to time surgery. Total time spent was 4 hours
== END 2023-02-12 14:21 | disposition home or self-care (01) ==
PROVIDERS: PCP Family Medicine; Visit Provider Orthopaedic Surgery
PROC: (CPT 29805; principal; 2023-02-12 07:30)
DX: S46.012A Strain of muscle(s) and tendon(s) of the rotator cuff of left shoulder, initial encounter (principal); S46.112A Strain of muscle, fascia and tendon of long head of biceps, left arm, initial encounter; X50.0XXA Overexertion from strenuous movement or load, initial encounter; G89.18 Other acute postprocedural pain; I10 Essential (primary) hypertension; N40.0 Benign prostatic hyperplasia without lower urinary tract symptoms; E78.5 Hyperlipidemia, unspecified; K21.9 Gastro-esophageal reflux disease without esophagitis; G47.33 Obstructive sleep apnea (adult) (pediatric); R73.03 Prediabetes; G25.81 Restless legs syndrome; Z87.891 Personal history of nicotine dependence; Z79.01 Long term (current) use of anticoagulants
CPT/HCPCS: 23410; 23430; 64415; 87081; A9270; J0330; J0690; J1100; J1170; J1885; J2370; J2405; J2704; J2710; J3010; J3370; J7120

== ENCOUNTER 2023-03-16 11:18 | Outpatient (CLI) | payer OTHER, SELFPAY ==
[2023-03-16 12:10] LABS: Basophils Percent Auto 0.4 % (0.2-1.2); Eosinophils Absolute Auto 0.2 K/mm3 (0-0.3); Eosinophils Percent Auto 2.4 % (0-4.4); Hematocrit 47.1 % (42.0-52.0); Hemoglobin 15.6 g/dL (14.0-18.0); Immature Granulocyte Absolute 0.04 K/mm3 (0.00-0.031); Immature Granulocyte Percent A 0.5 % (0-0.5); Lymphocytes Absolute Auto 1.47 K/mm3 (0.9-3.2); Lymphocytes Percent Auto 19.4 % (18.3-44.2); Mean Corpuscular HGB Conc 33.1 g/dl (32-36); Mean Corpuscular Hemoglobin 32.5 pg (26-34); Mean Corpuscular Volume 98.1 fl (80-100); Mean Platelet Volume 10.9 fl (7.4-10.4); Monocytes Absolute Auto 0.8 K/mm3 (0.1-0.6); Monocytes Percent Auto 10.3 % (2.6-8.5); Neutrophils Absolute Auto 5.1 K/mm3 (1.3-6.7); Platelet Count Result 235 k/mm3 (150-375); Red Cell Distribution Width 13.2 % (11.5-14.5); White Blood Count 7.6 K/mm3 (4.5-10.0)
== END 2023-03-16 11:19 | disposition home or self-care (01) ==
LOC: ANHGOSHLAB 11:20
PROVIDERS: PCP Family Medicine; Visit Provider Nurse Practitioner Family
DX: D72.829 Elevated white blood cell count, unspecified (principal); E11.9 Type 2 diabetes mellitus without complications
CPT/HCPCS: 36415; 83036; 85025

== ENCOUNTER 2023-06-26 13:53 | Outpatient (CLI) | payer OTHER, SELFPAY ==
--- NOTE | ~2023-06-26 | XR_ITS ---
EXAMINATION:XR cervical spine min 6V DATE: 06/26/2023 14:25 INDICATION: Muscle weakness TECHNIQUE: AP, lateral in neutral, flexion, and extension, lateral swimmers and odontoid views of the cervical spine are provided. COMPARISON: None FINDINGS: There is straightening of the cervical spine which can be positional or due to muscular spa sm. Alignment is normal. No hypermobility is present with flexion or extension. The odontoid process is intact. No fracture is identified. The vertebral body heights are maintained. There is moderate lo ss of intervertebral disc space height at C5-C6 and C6-7. There is multilevel severe facet and uncove rtebral joint osteoarthritis. Prevertebral soft tissues are normal. IMPRESSION: 1. Moderate cervical spondylosis without acute findings. Reviewed, dictated and finalized at location L.
== END 2023-06-26 13:54 | disposition home or self-care (01) ==
LOC: ANHIMG 13:56
PROVIDERS: PCP Family Medicine; Visit Provider Family Medicine
DX: M47.812 Spondylosis without myelopathy or radiculopathy, cervical region (principal); M43.6 Torticollis; M62.81 Muscle weakness (generalized); R20.2 Paresthesia of skin
CPT/HCPCS: 72052

== ENCOUNTER 2023-06-27 10:29 | Outpatient (CLI) | payer OTHER, SELFPAY ==
[2023-06-27 11:59] LABS: Alanine Aminotransferase 28 U/L (6-50); Alkaline Phosphatase 80 U/L (38-126); Aspartate Amino Transferase 36 U/L (17-59); Creatine Kinase 261 U/L (55-170)
[2023-06-27 12:15] LABS: Erythrocyte Sedimentation Rate 5 mm/hr (0-20)
== END 2023-06-27 10:30 | disposition home or self-care (01) ==
PROVIDERS: PCP Family Medicine; Visit Provider Family Medicine
DX: I48.0 Paroxysmal atrial fibrillation (principal); R20.2 Paresthesia of skin; R79.89 Other specified abnormal findings of blood chemistry; M62.81 Muscle weakness (generalized); I10 Essential (primary) hypertension
CPT/HCPCS: 36415; 80076; 82550; 82607; 85652

== ENCOUNTER 2023-08-01 10:42 | Outpatient (CLI) | payer OTHER, SELFPAY ==
--- NOTE | 2023-08-01 11:30 | NEURO_ITS ---
Impression: # Non-diabetic complains of pain in upper extremities. History of bilateral shoulder surgery but no neck surgery. # No Carpal Tunnel Syndrome or ulnar neuropathy. # Needle/EMG exam reveals mild neurogenic changes in bilateral deltoids. # Clinical correlation recommended; Deltoid neurogenic changes could be related to previous shoulder surgeries but higher involvement needs to be ruled out. Nerve Conduction Studies Anti Sensory Summary Table Stim Site NR Peak (ms) P-T Amp (?V) Site1 Site2 Delta-P (ms) Dist (cm) Dav (m/s) Left Median Anti Sensory (2-3nd Digit) Wrist 3.1 24.8 Wrist 2-3nd Digit 3.1 14.0 45 Wrist 3.2 32.2 Wrist 2-3nd Digit 3.1 14.0 45 Right Median Anti Sensory (2-3nd Digit) Wrist 3.5 16.8 Wrist 2-3nd Digit 3.5 14.0 40 Wrist 3.5 23.2 Wrist 2-3nd Digit 3.5 14.0 40 Left Radial Anti Sensory (Base 1st Digit) Wrist 2.6 16.5 Wrist Base 1st Digit 2.6 0.0 Right Radial Anti Sensory (Base 1st Digit) Wrist 2.8 10.7 Wrist Base 1st Digit 2.8 0.0 Left Ulnar Anti Sensory (5th Digit) Wrist 2.5 10.2 Wrist 5th Digit 2.5 14.0 56 Right Ulnar Anti Sensory (5th Digit) Wrist 2.7 9.7 Wrist 5th Digit 2.7 14.0 52 Motor Summary Table Stim Site NR Onset (ms) O-P Amp (mV) Site1 Site2 Delta-0 (ms) Dist (cm) Dav (m/s) Left Median Motor (Abd Poll Brev) Wrist 3.8 1.8 Elbow Wrist 5.5 30.0 55 Elbow 9.3 1.5 Right Median Motor (Abd Poll Brev) Wrist 3.8 2.8 Elbow Wrist 5.6 32.0 57 Elbow 9.4 2.4 Left Ulnar Motor (Abd Dig Minimi) Wrist 2.8 4.1 A Elbow Wrist 5.2 30.0 58 A Elbow 8.0 2.9 Right Ulnar Motor (Abd Dig Minimi) Wrist 2.7 6.4 A Elbow Wrist 5.4 31.0 57 A Elbow 8.1 5.9 F Wave Studies NR F-Lat (ms) L-R F-Lat (ms) Left Median (Mrkrs) (Abd Poll Brev) 29.49 1.49 Right Median (Mrkrs) (Abd Poll Brev) 30.98 1.49 Left Ulnar (Mrkrs) (Abd Dig Min) 29.38 1.17 Right Ulnar (Mrkrs) (Abd Dig Min) 30.55 1.17 EMG Side Muscle Nerve Root Ins Act Fibs Amp Dur Recrt Comment Right 1stDorInt Ulnar C8-T1 Nml Nml Nml Nml Nml Right Ext Indicis Radial (Post Int) C7-8 Nml Nml Nml Nml Nml Right Ext Digitorum Radial (Post Int) C7-8 Nml Nml Nml Nml Nml Right BrachioRad Radial C5-6 Nml Nml Nml Nml Nml Right PronatorTeres Median C6-7 Nml Nml Nml Nml Nml Right Abd Poll Brev Median C8-T1 Nml Nml Nml Nml Nml Left 1stDorInt Ulnar C8-T1 Nml Nml Nml Nml Nml Left Ext Indicis Radial (Post Int) C7-8 Nml Nml Nml Nml Nml Left Ext Digitorum Radial (Post Int) C7-8 Nml Nml Nml Nml Nml Left BrachioRad Radial C5-6 Nml Nml Nml Nml Nml Left PronatorTeres Median C6-7 Nml Nml Nml Nml Nml Left Abd Poll Brev Median C8-T1 Nml Nml Nml Nml Nml Right ABD Dig Min Ulnar C8-T1 Nml Nml Nml Nml Nml Right Biceps Musculocut C5-6 Nml Nml Nml Nml Nml Right Triceps Radial C6-7-8 Nml Nml Nml Nml Nml Right Deltoid Axillary C5-6 Nml Nml Nml >12ms Reduced Left ABD Dig Min Ulnar C8-T1 Nml Nml Nml Nml Nml Left Biceps Musculocut C5-6 Nml Nml Nml Nml Nml Left Triceps Radial C6-7-8 Nml Nml Nml Nml Nml Left Deltoid Axillary C5-6 Nml Nml Nml >12ms Reduced MTDD
== END 2023-08-01 10:43 | disposition home or self-care (01) ==
LOC: ANHNEURO 10:43
PROVIDERS: PCP Family Medicine; Visit Provider Family Medicine
DX: M62.81 Muscle weakness (generalized) (principal)
CPT/HCPCS: 95886; 95911

== ENCOUNTER 2023-08-10 16:32 | Outpatient (CLI) | payer OTHER, SELFPAY ==
--- NOTE | ~2023-08-10 | MR_ITS ---
MRI of the cervical spine Clinical History: Spondylosis Technique: Axial T2-weighted and gradient images, and sagittal T1-weighted, T2-weighted, and STIR joelle ges were acquired. Findings: There is no fracture or subluxation of the cervical spine. Vertebral bodies maintain normal height. No significant bone marrow signal abnormality seen. At C2-C3, there is no disc bulge or herniation. No spinal canal stenosis, cord compression, or neural foraminal narrowing. At C3-C4, there is no disc bulge or herniation. There is right facet arthropathy with right neural fo raminal narrowing. There is possible minimal left neural foraminal narrowing. No central canal stenos is or cord compression. At C4-C5, there is disc osteophyte complex and bilateral facet arthropathy, right worse than left. Th ere is minimal canal stenosis without eric cord compression. There is bilateral neural foraminal demetrius rowing, right worse than left. At C5-C6, there is disc osteophyte complex with mild flattening the ventral cord. There is bilateral facet arthropathy with bilateral neural foraminal narrowing. At C6-C7, there is disc osteophyte complex which minimally flattens the ventral cord. Bilateral neura l foramina may be minimally narrowed. No abnormal signal seen in the spinal cord. Paravertebral soft tissues are unremarkable. Impression: Moderate degenerative spondylosis, worst at C4-C5, C5-C6, and C6-C7. Reviewed, dictated and finalized at [facility]. [employer] Impression: Moderate degenerative spondylosis, worst at C4-C5, C5-C6, and C6-C7.
== END 2023-08-10 16:33 | disposition home or self-care (01) ==
PROVIDERS: PCP Family Medicine; Visit Provider Family Medicine
DX: M47.22 Other spondylosis with radiculopathy, cervical region (principal); M43.02 Spondylolysis, cervical region
CPT/HCPCS: 72141

== ENCOUNTER 2023-12-25 08:48 | Outpatient (CLI) | payer OTHER, SELFPAY ==
[2023-12-25 09:41] LABS: Alanine Aminotransferase 32 U/L (6-50); Albumin Level 3.9 g/dL (3.5-5.1); Alkaline Phosphatase 102 U/L (38-126); Anion Gap 4 mmol/L (8-16); Aspartate Amino Transferase 30 U/L (17-59); Bilirubin,Total 0.7 mg/dL (0.2-1.3); Blood Urea Nitrogen 19 mg/dL (9-20); Calcium 8.9 mg/dL (8.4-10.2); Carbon Dioxide 28 mmol/L (22-30); Chloride 107 mmol/L (98-107); Cholesterol 134 mg/dL (0-200); Estimated Glomerular Filt Rate > 60; Glucose 132 mg/dL (65-110); HDL Direct 38 mg/dL; Magnesium 2.1 mg/dL (1.6-2.3); Potassium 4.2 mmol/L (3.4-5.0); Sodium 139 mmol/L (137-145); Triglycerides 190 mg/dL (<150)
[2023-12-25 09:52] LABS: LDL Cholesterol Direct 73 mg/dL
== END 2023-12-25 08:49 | disposition home or self-care (01) ==
PROVIDERS: PCP Family Medicine; Visit Provider Internal Medicine Cardiovascular Disease
DX: E78.5 Hyperlipidemia, unspecified (principal)
CPT/HCPCS: 36415; 80053; 80061; 83735

== ENCOUNTER 2024-01-16 13:11 | Outpatient (CLI) | payer OTHER, SELFPAY ==
--- NOTE | ~2024-01-16 | XR_ITS ---
EXAMINATION: XR foot LT min 3V DATE: 01/16/2024 13:32 INDICATION: Left foot pain TECHNIQUE: Dorsoplantar, two oblique and lateral views of the left foot were obtained. COMPARISON: None. FINDINGS: Bone alignment is normal. No fracture. Mild polyarticular osteoarthritis at the left ankle and multip le joints in the left mid and forefoot. Small Achilles calcaneal spur and small enthesopathic ossicle s at the distal Achilles tendon. Prominent soft tissue swelling about the lower leg, ankle and most p rominent extending over the dorsum of the forefoot. No cortical erosions or periosteal reaction. IMPRESSION: 1. No acute osseous abnormality. 2. Mild degenerative skeletal changes including mild polyarticular osteoarthritis at the left foot an d ankle and chronic enthesopathy at the calcaneal insertion of the distal Achilles tendon. Reviewed, dictated and finalized at location B. IMPRESSION: 1. No acute osseous abnormality. 2. Mild degenerative skeletal changes including mild polyarticular osteoarthrit is at the left foot and ankle and chronic enthesopathy at the calcaneal inserti on of the distal Achilles tendon.
== END 2024-01-16 13:12 | disposition home or self-care (01) ==
LOC: ANHIMG 13:12
PROVIDERS: PCP Family Medicine; Visit Provider Physician Assistant
DX: M19.072 Primary osteoarthritis, left ankle and foot (principal); M77.52 Other enthesopathy of left foot and ankle
CPT/HCPCS: 73630

== ENCOUNTER 2024-01-22 08:58 | Day surgery (SDC) | payer OTHER, SELFPAY ==
--- NOTE | ~2024-01-22 | XR_ITS ---
EXAMINATION: XR fluoroscopy no charge DATE: 01/22/2024 11:27 INDICATION: Cervical spondylosis with radiculopathy. TECHNIQUE: 10 intraoperative fluoroscopic views of the cervical spine were obtained. I was not presen t. Fluoroscopy exposure time was 17 seconds. COMPARISON: None. FINDINGS: There is moderate cervical spondylosis. There is an epidural injection at C6-C7. IMPRESSION: 1. Epidural injection at C6-C7. Reviewed, dictated and finalized at location E.
--- NOTE | 2024-01-22 10:38 | PM.HPGS ---
History of Present Illness History of Present Illness Consent: Risks, benefits, and alternatives have been discussed and questions answered. Patient agrees to proceed with procedure. Chief complaint: Cervical Spondylosis with Radiculopathy Narrative: Ren Monzon is a 78 year old male with chronic, recalcitrant and disabling rightward cervical radiculopathy secondary to degenerative spondylosis and cervical spinal stenosis with failure to respond to aggressive conservative measures including PT, oral and topical analgesics, opioid and nonopioid analgesics, rest, time and activity/behavioral modification over the past 1-2 years who presents for rightward cervical interlaminar epidural steroid injection under fluoroscopic guidance. Review of Systems Review of Systems: Patient denies any new infectious, allergic, cardiopulmonary, neurologic or constitutional symptoms or changes in activity tolerance or exercise capacity including new or progressive SOB/SIDDIQUI, peripheral edema, productive cough, dysuria, nausea/vomiting, diarrhea, weight change, fevers/chills/night sweats, new or progressive neurologic deficit, cognitive or mood changes since last seen, except as documented in the HPI. All systems reviewed & are unremarkable except as noted in HPI and below PMFSH Past Medical History Medical History (Updated 01/16/24 @ 12:47 by Philly Seo PA-C) Adult BMI 31.0-31.9 kg/sq m Benign essential hypertension (~2009) BMI 29.0-29.9,adult BPH (benign prostatic hyperplasia) (~2016) Cervical spondylosis with radiculopathy Dyslipidemia Elevated liver function tests Environmental allergies Erectile dysfunction GERD (gastroesophageal reflux disease) (~2009) Glaucoma (~2014) History of colon polyps Hypokalemia Hypomagnesemia Low serum total protein level Muscle right arm weakness RITA on CPAP Osteoarthritis involving multiple joints on both sides of body Prediabetes RLS (restless legs syndrome) (~2017) Rosacea (~2012) Rotator cuff disorder (~2018) Screening for AAA (abdominal aortic aneurysm) Negative for AA (09/2020) Skin tag Tingling of right upper extremity Surgical History Surgical History H/O elbow surgery left cubital tunnel release - 03/27 History of cataract surgery left eye - 03/27 History of left knee replacement 02/2021 History of lumbar surgery 11/27 L3,4,5 History of repair of right rotator cuff 06/2019 Total knee replacement status (~2020) Family History Family History Mother Family history of cardiovascular disease Family history of emphysema Tobacco abuse Father Family history of cardiovascular disease Acute myocardial infarction CHF (congestive heart failure) Tobacco abuse Grandparent , cancer No problems noted. Grandparent Diabetes mellitus dx'd in her 20's. treated w/ insulin Sibling Malignant neoplasm of prostate Diabetes mellitus Alcoholism Social History Social History Social History: Caffeine-Daily Years smoked: 9 Smoking status: Former smoker Tobacco type: pipe Second hand tobacco smoke exposure: Yes Smoking end date: 12/23/71 Additional smoking assessment comments: DENIES ANY FORM OF TOBACCO USE Alcohol intake: former Alcohol use details: DRANK UP TO PT WEEKLY FOR 5 YRS - QUIT 12/23/1971 Substance use: never Substance use type: does not use Do You Feel Safe in your Home?: Yes Lack of Transportation: No Lack of Food: Never True Current Housing: I Have Housing Concerned About Future Housing: No Difficulty Paying Gas/Electric Bills: No Difficulty Paying for Meds: No Currently Unemployed: No Education: Master's Degree or Higher Difficulty w/ Childcare or Family Care: No Living arrangements: with f
--- NOTE | 2024-01-22 10:41 | WPDHPUPDATE1 ---
History and Physical Update Update Date/Time: 01/22/24 10:41 History and Physical has been reviewed, including an updated exam of the patient. There are NO changes in the patient's condition. Risks, benefits, and alternatives have been discussed and questions answered. Patient agrees to proceed with procedure.
--- NOTE | 2024-01-22 10:41 | W.PM.PROC2 ---
Procedure Note - Detailed Date of Procedure 01/22/24 Pre-op Diagnosis Cervical Spondylosis with Radiculopathy Post-op Diagnosis Same Procedure Performed Rightward Cervical Interlaminar Epidural Steroid Injection at C6-7 under Fluoroscopic Guidance and with Contrast Control. Surgeon Willard Murillo MD Anesthesia Local Description of Procedure INFORMED CONSENT: Risks, benefits and alternatives to the procedure were discussed in detail with the patient who expressed explicit understanding and consent to proceed. Patient was informed verbally and in written form regarding the risks associated with the procedure including the low risk of serious infection, bleeding/bruising, allergic reaction, nerve or organ injury, paralysis, procedural site pain or discomfort, worsening pain and/or mobility, failure to treat and/or disfigurement. The patient expressed explicit understanding and consent to proceed. All materials required for the procedure were available prior to procedure start. Site and side was marked prior to procedure and confirmed in the presence of the patient. PROCEDURE IN DETAIL: The patient was brought to the procedural suite and placed in the prone position. Patient's head was positioned and stabilized with a ProneView pillow or equivalent. Patient was made comfortable with use of pillows under the chest, hips and ankles. Skin overlying the injection site was prepared broadly with ChloraPrep applicator and draped in a sterile manner. Aseptic technique was employed throughout. The endplates of the vertebral body at the site of interest were aligned in the AP view. Slight caudad tilt and ipsilateral oblique angulation was utilized to optimize visualization of the targeted posterior intervertebral foramen at C6-7. Local anesthesia was established by infiltration with approximately 5 mL of 2% lidocaine via a 1-1/2 inch 27-gauge needle. A 20-gauge 4-inch Tuohy epidural needle was advanced intermittently until appropriate loss of resistance to air was identified via plastic loss of resistance syringe. Lateral view was used to confirm the appropriate positioning of the needle tip within the posterior epidural space. In the AP view, 2.0 mL of Omnipaque 300 contrast medium was injected after negative aspiration for CSF, blood or other bodily fluid, showing appropriate epidural spread of contrast without evidence of intravascular or intrathecal placement. After negative repeat aspiration for CSF, blood or other bodily fluid, A 4 mL solution containing 6 mg of betamethasone in sterile PF Normal Saline was injected after negative repeat aspiration. Appropriate spread of the injectate was confirmed with washout of previously injected contrast. No parasthesias were elicited. Needle was removed completely intact without difficulty. Images were saved and documented in the patient chart. Patient's skin was cleansed and sterile bandage applied. The patient tolerated the procedure well. The patient was transported to the recovery area in stable condition where they were observed for an appropriate amount of time prior to discharge, without evidence of complication. The patient was instructed to avoid excessive activity for the next 48 hours, including overhead work, reaching or extended device/computer usage. Showers only for 48 hours. They were instructed not to drive or operate heavy machinery for 24 hours. They are to monitor for severe headaches, fevers, chills, night sweats, erythema/swelling at the site or any other signs of infection, bleeding/bruising, bowel or bladder changes as well as new pain, weakness or numbness in the upper or lower extremity. Should they notice these changes, they are instructed to call our office immediately or report directly to the nearest Emergency Department if no answer or if after posted office hours. CONTRAST WASTED: 28mL Omnipaque 300. Complications No immediate complications Condition Stable Disposition Same day [facility] Billing
[2024-01-22 10:44] VITALS: BP 140/81; PULSE 56; RESP 14; TEMP 36.5; O2SAT 97
[2024-01-22 11:17] VITALS: BP 133/61; PULSE 51; RESP 14; O2SAT 97
[2024-01-22 11:23] VITALS: BP 115/62; PULSE 46; RESP 14; O2SAT 97
[2024-01-22] MEDS: LIDOCAINE HCL 1% PF INJ 5 ML VIAL 2 ML INFILTRATE (11:24)
[2024-01-22] MEDS: BETAMETHASONE SODIUM PHOSPHATE PF INJ 6 MG/ML VIAL INFILTRATE (11:25)
[2024-01-22 11:30] VITALS: BP 96/81; PULSE 52; RESP 16; O2SAT 100
== END 2024-01-22 11:44 | disposition home or self-care (01) ==
PROVIDERS: PCP Family Medicine; Visit Provider Anesthesiology Pain Medicine
PROC: (CPT 62321; principal; 2024-01-22 11:00)
DX: M47.22 Other spondylosis with radiculopathy, cervical region (principal)
CPT/HCPCS: 62321; 99199

== ENCOUNTER → 2024-05-26 16:03 | Outpatient (REF) | payer OTHER, SELFPAY | LOC: ANHLAB 16:03 | PROVIDERS: PCP Family Medicine; Visit Provider Plastic Surgery | DX: C44.41 Basal cell carcinoma of skin of scalp and neck (principal) | CPT/HCPCS: 88305 ==

== ENCOUNTER → 2024-06-16 14:54 | Outpatient (REF) | payer OTHER, SELFPAY | LOC: ANHLAB 14:54 | PROVIDERS: PCP Family Medicine; Visit Provider Physician Assistant Surgical | DX: L72.0 Epidermal cyst (principal) | CPT/HCPCS: 88305 ==

== ENCOUNTER 2024-10-07 11:00 | Outpatient (CLI) | payer OTHER, SELFPAY ==
[2024-10-07 11:32] LABS: Anion Gap 1 mmol/L (4-12); Blood Urea Nitrogen 19 mg/dL (9-20); Calcium 9.3 mg/dL (8.4-10.2); Carbon Dioxide 26 mmol/L (22-30); Chloride 109 mmol/L (98-107); Estimated Glomerular Filt Rate > 60; Glucose 172 mg/dL (65-110); Potassium 4.2 mmol/L (3.4-5.0); Sodium 136 mmol/L (137-145)
[2024-10-07 11:46] LABS: Creatinine Urine 115.1 mg/dL
[2024-10-07 11:48] LABS: Hemoglobin A1C 6.5 % (<5.7)
[2024-10-07 11:54] LABS: MALB Creatinine Ratio < 5.2 mg/g (0-30); Microalbumin Urine Random < 6.0 mg/L (0-16.7)
[2024-10-07 12:02] LABS: Prostate Specific Antigen 0.8 ng/mL (< OR = 4.0)
== END 2024-10-07 11:01 | disposition home or self-care (01) ==
LOC: ANHLAB 11:01
PROVIDERS: PCP Family Medicine; Visit Provider Physician Assistant Medical
DX: R32 Unspecified urinary incontinence (principal); R35.1 Nocturia; I10 Essential (primary) hypertension; E78.5 Hyperlipidemia, unspecified; E11.9 Type 2 diabetes mellitus without complications
CPT/HCPCS: 36415; 80048; 82043; 83036; 84153; 87086

== ENCOUNTER 2025-02-09 00:28 | Day surgery (SDC) | payer OTHER, SELFPAY ==
[2025-02-04 11:45] VITALS: BMI 29.4
--- NOTE | 2025-02-04 12:00 | PC.NURSE ---
Spoke with patient regarding medication Eliquis. Patient verbalizes understanding that the last dose is to be taken on 02/06/25 and the Endoscopist will instruct them when to restart after the procedure.
--- OUTSIDE RECORDS SUMMARY | 2025-02-09 00:31 | XMS_ITS | Clinical Summary ---
Author Organization [facility] Address [address] [address] Phone Care Team Providers Care Membership Sales Advisor Name Role Phone Ross Pineda MD Primary Care Provider [phone] Allergies No known active allergies Medications ramipril (ALTACE) 10 MG CapsuleIndicati ons:Hypertensio n Take 10 mg by mouth daily. Indications: High Blood Pressure Active amLODIPine (NORVASC) 5 MG TabletIndicatio ns:Hypertension Take 5 mg by mouth every morning. Indications: High Blood Pressure Active potassium chloride SA (K-DUR) 20 MEQ Tablet Controlled ReleaseIndicati ons:Hypokalemia Take 20 mEq by mouth 2 times daily. Indications: Low Amount of Potassium in the Blood Active Aspirin 81 MG Tablet Take 81 mg by mouth daily. Active Coenzyme Q10 (COQ-10) 100 MG Capsule Take 400 mg by mouth daily. Active MAGNESIUM PO Take 500 mg by mouth daily. Active Multiple Vitamins-Minera ls (MULTIVITAMIN PO) Take 1 Tab by mouth daily. 50+ MALE DAILY VITAMIN Active Multiple Vitamins-Minera ls (OCUVITE PO) Take 1 Tab by mouth daily. Active Ascorbic Acid (VITAMIN C) 1000 MG Tablet Take 1 Tab by mouth daily. Active Omeprazole Magnesium (PRILOSEC OTC) 20 MG Tablet Delayed Response Take 20 mg by mouth every morning. Active CINNAMON PO Take by mouth. Act dayami atorvastatin (LIPITOR) 20 MG Tablet 0 6 Active fluticasone (FLONASE) 50 MCG/ACT Suspension 0 5 Active Essex-3 Fatty Acids (OMEGA 3 PO) Take by mouth. Activ e spironolactone- hydrochlorothia zide (ALDACTAZIDE) 25-25 MG Tablet Take 1 Tablet by mouth daily. Active ROPINIROLE HCL PO Take by mouth. Activ e tamsulosin (FLOMAX) 0.4 MG Capsule Take 0.4 mg by mouth daily. Active FIBER PO Take by mouth. Activ e Probiotic Product (PROBIOTIC DAILY PO) Take by mouth. Activ e TURMERIC PO Take by mouth. Act dayami Pyridoxine HCl (B-6 PO) Take by mouth. Activ e Cyanocobalamin (VITAMIN B-12 PO) Take by mouth. Activ e Active Problems No known active problems Immunizations Immunization Administration Dates Next Due Covid-19, Mrna, Lnp-s, Pf, 30 Mcg/0.3 Ml Dose (P fizer) 12/27/2020,12/06/2020 Influenza Vaccine greater than 3 yrs 09/22/2015 Influenza Vaccine, Quadrivalent, PF 09/10/2019 Influenza, High-dose, Quadrivalent 08/06/2020 Influenza, Seasonal, Injectable, Undefined 09/22 Influenza, high-dose, trivalent, PF 08/16/2018 Pneumococcal Vaccine - 13 Valent 09/13/2017 Pneumococcal Vaccine Adult - 23 Valent 6 TDAP Vaccine 10/14/2015,04/17/2006 Family History Medical History Relation Name Comments Congestive Heart Failure Father Heart Attack Father Emphysema Mother Cancer Other grandfather stomach Relation Name Status Comments Father Mother Other grandfather Social History Tobacco Use Types Packs/Day Years Used Date Smoking Tobacco: Former Smokeless Tobacco: Never Tobacco Cessation:Counseling Given: No Alcohol Use Standard Drinks/Week Comments No 0 (1 standard drink = 0.6 oz pur e alcohol) Sexually Active Control Partners Comments Not Currently Sex and Gender Information Value Date Recorded Sex Assigned at Not on file Legal Sex Male 7:14 PM CDT Gender Identity Not on file Sexual Orientation Not on file 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 on file Not on file Not on file Last Filed Vital Signs Vital Sign Reading Time Taken Comments Blood Pressure 122/64 03/09/2021 1:15 PM CDT Pulse 71 03/09/2021 1:15 PM CDT Temperature 36.7 C (98 F) 03/09/2021 1:15 PM CDT Respiratory Rate 18 03/09/2021 1:15 PM CDT Oxygen Saturation 96% 03/09/2021 1:15 PM CDT Inhaled Oxygen Concentration - - Weight 90.7 kg (200 lb) 03/09/2021 1:15 PM CDT Height 180.3 cm (5' 11 ) 03/09/2021 1:15 PM CDT Body Mass Index 27.89 03/09/2021 1:15 PM CDT Plan of Treatment Health Maintenance Due Date Last Done Comments Hepatitis C Virus (HCV) Screening 1945 Zoster Immunization (1 of 2) 1996 Respiratory Syncytial Virus (RSV) Immunization (Adult) (1 - 1-dose 75+ series) 2021 Influenza Immunization (#1) 06/08/202407/10, 09/10/2019, 08/16/2018, Additional history exists SARS-COV-2 Immunization ( season) 2024 12/27/2020, 12/06/2020 Colonoscopy High Risk Discontinued 09/13/2015 Colonoscopy Discontinued 09/13/2015 Colorectal Cancer Screening Discontinued DTaP/Tdap/Td Immunization Discontinued 10/14/2015, 08/2006 Pneumococcal Immunization (50+ years) Completed 09/13/2017, 10/14/2015 Pneumococcal Immunization Combined Discontinued 09/13/2017, 10/14/2015 Cologuard Discontinued Hepatitis B Immunization Aged Out No longer eligible based on patient's age to complete this topic Immunochemical Fecal Occult Blood Discontinued Meningococcal Immunization (ACWY) Aged Out No longer eligible based on patient's age to complete this topic Rotavirus Immunization Aged Out No lo nger eligible based on patient's age to complete this topic Insurance MEDICARE C E[employer]ENCE Care Teams Membership Sales Advisor Relationship Specialty Start Date End Date Ross Pineda MD [address] [place], [place] [id number] PCP - General Family Medicine 09/10/15
--- OUTSIDE RECORDS SUMMARY | 2025-02-09 00:32 | XMS_ITS | Encounter Summary ---
Author Organization [facility] Address [address] [place] [address] Care Team Providers Care Precision Machine Operator Name Role Phone Ross Pineda MD Primary Care Provider [phone] Sanjay Guerrero MD Primary Care Provider Encounter Details Date Type Department Care Team (Late st Contact Info) Description 02/27/2020 Lab Requisition [facility] [address] [place] [address] Social History Tobacco Use Types Packs/Day Years Used Date Smoking Tobacco: Never Assessed Sex and Gender Information Value Date Recorded Sex Assigned at Not on file Legal Sex Male 4:47 AM TRAVEL MONEY ADVISOR Gender Identity Not on file Sexual Orientation Not on file documented as of this encounter Plan of Treatment Not on file documented as of this encounter Procedures Procedure Name Priority Date/Time Associated Diagnosis Comments SARS-COV-2 (COVID-19) IN HOUSE Routine 02/27/2020 8:00 AM CDT documented in this encounter Results * SARS-COV-2 (COVID-19) IN HOUSE (02/27/2020 8:00 AM CDT) COVID-19 PCR Not detected Not detected, Invalid 02/28/2020 12:53 AM CDT [facility] Microbiology SPECIMEN FROM NASOPHARYNGEAL STRUCTURE / Unknown Collection / Unknown 02/27/2020 8:00 AM CDT 02/27/2020 4:35 PM CDT Narrative [facility] - 02/28/2020 12:53 AM CDT This Real Time RT-PCR assay was developed and its performance characteristics determined by [facility]. This test has been authorized by the Food and Drug administration (FDA)under an Emergency Use Authorization (EUA). This test has been validated in accordance with the FDA's guidance document Policy for Diagnostic Testing in Laboratories Certified to perform High Complexity Testing under CLIA prior to Emergency Use Authorization for Coronavirus Disease-2019 during the Public Health Emergency issued on December 06, 2019. FDA independent review of this validation is pending. This test is only authorized for the duration of time the declaration that circumstances exist justifying the authorization of emergency use of in vitro diagnostic tests for detection of SARS-CoV-2 virus and/or diagnosis of COVID-19 infection under section 564(b)(1) of the Act, 21 U.S.C 360bbb-3 (b)(1), unless the authorization is terminated or revoked sooner. us LAB - MICROBIOLOGY ORDERABLES Fi nal Result [facility] [address] [place], [place] [id number] [place] [address] documented in this encounter Visit Diagnoses Not on filedocumented in this encounter Additional Health Concerns Infection Onset Date Last Indicated Resolved Time COVID-19 Under Investigation 02/27/2020 02/27/2020 02/28/2020 12:53 AM CDT documented as of this encounter Care Teams Precision Machine Operator Relationship Specialty Start Date End Date Ross Pineda MD [address] [place] [address] PCP - General 11/14/21 02/21/22 Sanjay Guerrero MD [address] [place] [address] PCP - General 02/22/22 documented as of this encounter
--- OUTSIDE RECORDS SUMMARY | 2025-02-09 00:32 | XMS_ITS | Clinical Summary ---
Author Organization [facility] Address [address] [place] [address] Care Team Providers Care Abrasive Grader Helper Name Role Phone Sanjay Guerrero MD Primary Care Provider Source Comments [facility],non-owned Affiliates and Associated Physician Practices is amultiple site organization consisting of ambulatory clinics and hospital sitesin [place], [place], [place] and [place]. This disclosure is being madepursuant to the Care Everywhere program and may not contain all information available regarding this patient. Last updated 18.[facility] Social History Tobacco Use Types Packs/Day Years Used Date Smoking Tobacco: Never Assessed Sex and Gender Information Value Date Recorded Sex Assigned at Not on file Legal Sex Male 4:47 AM SOLUTION DIRECTOR Gender Identity Not on file Sexual Orientation Not on file Plan of Treatment Health Maintenance Due Date Last Done Comments MEDICARE AWV 12 MONTHS 1945 HEPATITIS C SCREENING 10/01/1964 DTAP/TDAP/TD VACCINES (1 - Tdap) 1965 PNEUMOCOCCAL VACCINE 50+ (1 of 1 - PCV) 1996 ZOSTER VACCINE (1 of 2) 1996 Respiratory Syncytial Virus (RSV) Vaccine Pt: or over 60 yrs (1 - 1-dose 75+ series) 2021 COVID-19 VACCINE ( - 2023-2 5 season) 2024 DEPRESSION SCREENING 10/08/2024 INFLUENZA VACCINE (Season Ended) 2025 HEPATITIS B VACCINE Aged Out No longe r eligible based on patient's age to complete this topic HIB VACCINE Aged Out No longer eligi ble based on patient's age to complete this topic HPV VACCINE Aged Out No longer eligi ble based on patient's age to complete this topic MENINGOCOCCAL (Group B) VACC INE SHARED DECISION-MAKING Aged Out No longer eligibl e based on patient's age to complete this topic MENINGOCOCCAL GROUPS A/C/Y/W VACCINE Aged Out No longer eligible b ased on patient's age to complete this topic Insurance [employer]ENCE MEDICARE ESSENCE MEDICARE ADV PPO SELF PAY NO INSURANCE Member Subscriber Plan / Payer (Ef fective for All Dates) Name:Ren Monzon Member ID:Not on file Relation to Subscriber:Not on file Name:REN MONZON Subscriber ID:Not on file (Home) Address: [address] [place] [address] Payer ID:Not on file Group ID:Not on file Type:Self Pay Address: [place], [place] Care Teams Abrasive Grader Helper Relationship Specialty Start Date End Date Sanjay Guerrero MD [address] [place] [id number] PCP - General 02/22/22
--- OUTSIDE RECORDS SUMMARY | 2025-02-09 00:32 | XMS_ITS | Data Portability ---
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 He is now 28 days after repair massive chronic rotator cuff tear left shoulder and augmentation with acellular dermal is his allograft. His incisions are nicely healed the skin looks perfect. He did have a rapid onset of allergic dermatitis to the skin adhesive used and he is aware that he must record that as an allergy for any surgeries. He is very comfortable. He has not had use of pain medication since prior to last visit. He stop the Tylenol as well. He is quite comfortable. patient seems to doing very well and he is comfortable. I advised him that I would like to start limp pendulum exercises today. He is actually quite familiar with these as he had these with his other shoulder. He demonstrated ability to do this properly today. He will do these for a few minutes 2 or 3 times a day. I will see him back in 2 weeks assess his progress. At that time we will start some gentle passive range of motion exercises. Two weeks after that active assisted elevation with the gilma and 2 weeks after that start gentle Thera-Band strengthening her Not available 03/12/2023 14:15:43 03/26/2023 03/26/2023 Patient returns in 6 weeks after repair massive rotator cuff tear left shoulder with allograft dermal augmentation. he is very comfortable. He has the occasional twinge of a can lateral deltoid area. He is not taking a pain pill even Tylenol since last visit. His wound is well healed. There is no rash. Today as passive elevation to 95 and external rotation to 20 . Will start range of motion passively focusing on external rotation and elevation and he is starting physical therapy later today. he will achieve active range of motion of the left elbow. I will see him back in 2 weeks assess his progress. At that time we will initiate gilma exercises and continue with passive range of motion and in 4 weeks From today start strengthening exercises. Not available 03/26/2023 14:10:46 04/09/2023 04/09/2023 Patient returns. He is now 8 weeks after rotator cuff repair massive tear left shoulder. He is doing well still quite comfortable. On exam today he has range of motion 11/01/2049 L5. His wound is well healed there is no redness swelling or warmth or tenderness about the shoulder. We will advance his therapy to include passive range of motion all directions with gentle stretching active assisted range of motion. I have provided him with a gilma for use at home. He may start some gentle Thera-Band exercises in physical therapy now and I will see him back in 4 weeks assess his progress. Not available 04/11/2023 10:07:14 05/07/2023 05/07/2023 patient returns. He is now 3 months after repair large to massive rotator cuff tear left shoulder with acellular dermal allograft augmentation. His pain is minimal. He has been going to physical therapy. On exam he has no redness swelling or warmth about the left shoulder he has active elevation 120 passed 130 which is a big improvement. He has external rotation 60 internal rotation L1. On strength testing his mild weakness external rotation [id number] weakness thumbs down abduction. The will continue with physical therapy working on stretching and strengthening I will see him back in 4 weeks assess progress. He seems to be doing very well. Not available 05/08/2023 20:12:43 06/04/2023 06/04/2023 HPI: Patient returns. He is 4 months out from left rotator cuff repair with dermal patch. He has been in therapy working on range of motion as well as strengthening for last month. He is making good improvement he feels. Physical exam: Patient has active elevation left shoulder 145 . External rotation is to 75 internal rotation is to L1. He has no pain with range of motion. He has mild weakness with external rotation is still [id number] weakness with abduction. Impression: Patient is now 4 months out from very large rotator cuff repair with dermal patch. He is making good improvement. I think for the most part he has his motion back and just knees continue to work on his strengthening. He feels that therapy is helping I would like to continue with this and I have given him an order to do so. I advised him it is going to be 6 months total for maximal healing of the repair and he should be very cautious for these next 2 months as far as doing any heavy lifting pushing or pulling. Especially no quick snapping motions with the shoulder as well. Everything should be controlled and hopefully this will prevent any injuries or re-tear . At this point he is doing well enough that I think that we can see him back on an as-needed basis. 20 minutes was spent in treatment patient more than half of this in [id number] conversation loni Not available 06/04/2023 17:53:37 Plan of Treatment Reminders Order Date Submit Date Provider Last Modified By Organization Details Last Modified Time Details Appointments None record ed. Lab None record ed. Referral None record ed. Procedures None record ed. Surgeries None record ed. Imaging None record ed. Medication Orders None record ed. Patient TargetsNo targets recorded. Patient InstructionsNo instructions recorded. Reason for Referral None Reported. Results Created Date Observation Date Name Description Value Unit Range Abnormal Flag Note LastModifiedBy Organization Detail LastModifiedTime 02/15/20 23 12/15/2022 XR, shoul gladys No observ ation record ed. [email or web address] Not Available 2022 17:50:44 02/15/20 23 01/02/2023 MRI, shoul gladys, w/o contr ast No observ ation record ed. [email or web address] Not Available 2022 17:51:07 Result Notes None recorded. 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 Procedures Surgical History Date Name Laterality Status Provider Name and Address Organization Details Recorded Time 0 procedure on elbow completed Not Available [facility] 12/06/2022 04:41:54 0 Back completed Not Available [facility] 3 04:41:54 9 Rotator cuff surgery completed Not Available [facility] 12/06/2022 04:41:54 Imaging Results Imaging Date Name Status LastModified by Organiz ation Details LastModified Time 12/15/2022 XR, shoulder completed Information not available 02/14/2023 17:50:44 01/02/2023 MRI, shoulder, w/o contrast completed Information not available 02/14/2023 17:51:07 Procedure Notes None recorded. Medical Equipment None Reported. Medications Name Sig Start Date Stop Date Status Note LastModified by Organization Details LastModified Time celecoxib 200 mg capsule 03/28 completed Not Available Not Available Not Available amoxicillin 500 mg capsule TAKE 4 TABLETS BY MOUTH 1 HOUR PRIOR RO APPOINTME NT 02/15 completed Not Available Not Available Not Available prednisone 10 mg tablet PLEASE SEE ATTACHED FOR DETAILED DIRECTION S 03/26 completed Not Available Not Available Not Available atorvastati n 20 mg tablet TAKE 1 TABLET BY MOUTH EVERYDAY AT BEDTIME active Not Available Not Available No t Available triamcinolo ne acetonide 0.5 % topical cream APPLY TO AFFECTED AREA TWICE A DAY 02/22 completed Not Available Not Available Not Available indapamide 2.5 mg tablet TK 1 T PO QD 07/07 completed Not Available Not Available Not Available hydrocodone 5 mg-acetamin ophen 325 mg tablet TK 1 T PO TID PRN 07/07 completed Not Available Not Available Not Available sotalol 80 mg tablet TAKE 1/2 TAB BY MOUTH TWICE DAILY active Not Available Not Available No t Available meloxicam 15 mg tablet TAKE 1 TABLET BY MOUTH EVERY DAY WITH FOOD FOR 90 DAYS 02/23 completed Not Available Not Available Not Available ropinirole 3 mg tablet TAKE 1 TABLET BY MOUTH EVERY DAY 11/17 completed Not Available Not Available Not Available potassium chloride ER 10 mEq tablet,exte nded release TAKE 1 TABLET BY MOUTH EVERY DAY active Not Available Not Available No t Available amlodipine 5 mg tablet TAKE 1 TABLET BY MOUTH EVERY DAY active Not Available Not Available No t Available sulfamethox azole 800 mg-trimetho prim 160 mg tablet TAKE 1 TABLET BY MOUTH EVERY 12 HOURS active Not Available Not Available No t Available tramadol 50 mg tablet Take 2 tablets every 4 hours by oral route as needed. 02/23 completed Not Available Not Available Not Available acetaminoph en 500 mg tablet Take 2 tablets every 6 hours by oral route. 05/25 completed Not Available Not Available Not Available spironolact one 25 mg tablet TAKE 1 TABLET BY MOUTH EVERY DAY active Not Available Not Available No t Available amoxicillin 500 mg tablet take all 4 tablets (2gms) PO 1hr prior to dental procedure active Not Available Not Available No t Available cefadroxil 500 mg capsule TAKE 1 CAPSULE BY MOUTH EVERY 12 HOURS FOR 5 DAYS active Not Available Not Available No t Available famotidine 20 mg tablet TAKE 1 TABLET BY MOUTH EVERY DAY 03/12 completed Not Available Not Available Not Available prednisolon e acetate 1 % eye drops,suspe nsion INSTILL 1 DROP INTO LEFT EYE TWICE DAILY FOR 7 DAYS THEN TAPER TO ONCE DAILY FOR 7 DAYS active Not Available Not Available No t Available DOK 100 mg capsule TK ONE C PO BID FOR 14 DAYS 07/07 completed Not Available Not Available Not Available tamsulosin 0.4 mg capsule TAKE 1 CAPSULE BY MOUTH EVERY DAY active Not Available Not Available No t Available Kenalog 10 mg/mL suspension for injection In office injection administe red by the provider 02/23 completed NDC: 0003- 0494- 20 Not Available Not Available Not Available ropinirole 2 mg tablet TAKE 1 TABLET BY MOUTH EVERYDAY AT BEDTIME active Not Available Not Available No t Available cephalexin 500 mg capsule TAKE 1 CAPSULE BY MOUTH EVERY 6 HOURS 03/12 completed Not Available Not Available Not Available neomycin-po lymyxin-dex ameth 3.5 mg/mL-10,00 0 unit/mL-0.1 % eye drops SHAKE LQ AND INT 1 GTT IN OD QID 06/03 completed Not Available Not Available Not Available triamcinolo ne acetonide 0.1 % topical ointment 1 APPLIC TOPICALLY TWICE A DAY APPLY LIGHT LAYER TO RASH TWICE A DAY NEVER APPLY TO FACE 03/12 completed Not Available Not Available Not Available hydroxyzine HCl 25 mg tablet 07/07 completed Not Available Not Available Not Available oxycodone-a cetaminophe n 7.5 mg-325 mg tablet 07/07 completed Not Available Not Available Not Available methylpredn isolone 4 mg tablets in a dose pack TAKE 6 TABLETS ON DAY 1 DIRECTED ON PACKAGE AND DECREASE BY 1 TAB EACH DAY FOR A TOTAL OF 6 DAYS 02/23 completed Not Available Not Available Not Available doxycycline hyclate 20 mg tablet TAKE 2 TABLETS BY MOUTH EVERY DAY ON AN EMPTY STOMACH FOR 2 MONTHS active Not Available Not Available No t Available fluticasone propionate 50 mcg/actuati on nasal spray,suspe nsion INSTILL 1 SPRAY INTO EACH NOSTRIL EVERY DAY active Not Available Not Available No t Available Microlet Lancet USE TO TEST BLOOD SUGAR EVERY DAY active Not Available Not Available No t Available ramipril 10 mg capsule TAKE 1 CAPSULE BY MOUTH DAILY active Not Available Not Available No t Available amoxicillin 875 mg-potassiu m clavulanate 125 mg tablet TAKE 1 TABLET BY MOUTH TWICE A DAY 01/12 completed Not Available Not Available Not Available amoxicillin 500 mg-potassiu m clavulanate 125 mg tablet TAKE 1 TABLET BY MOUTH EVERY 8 HOURS 01/12 completed Not Available Not Available Not Available oxycodone 5 mg tablet TAKE 1 TABLET BY MOUTH EVERY 4 HOURS NEEDED FOR PAIN 03/12 completed Not Available Not Available Not Available Senna Plus 8.6 mg-50 mg tablet TAKE 2 CAPSULES BY MOUTH TWICE A DAY FOR CONSTIPAT ION active Not Available Not Available No t Available Klor-Con M20 mEq tablet,exte nded release TAKE 1 TABLET BY MOUTH EVERY DAY 11/17 completed Not Available Not Available Not Available tadalafil 20 mg tablet TAKE 1 TABLET BY MOUTH ONCE DAILY NEEDED. ADMINISTE R APPROXIME TLY 30 MINUTES BEFORE SEXUAL ACTIVITY. DO NOT USE MORE THAN 1 DOSE IN 24 HO active Not Available Not Available No t Available Vitamin C 2019 active Not Available Not Available Not Avai lable aspirin 81 mg 02/23 completed Not Available Not Available Not Available Prilosec 2019 active Not Available Not Available Not Avai lable Senna Plus 03/14 completed Not Available Not Available Not Available Durezol 0.05 % eye drops 03/14 completed Not Available Not Available Not Available ropivacaine (PF) 5 mg/mL (0.5 %) injection solution In office injection administe red by the provider 02/23 completed [facility] [phone] Not Available Not Available Not Available Contour Next Test Strips USE 1 STRIP TO CHECK BLOOD SUGAR DAILY active Not Available Not Available No t Available TRUEplus Lancets 33 gauge 07/07 completed Not Available Not Available Not Available Eliquis 5 mg tablet TAKE 1 TABLET ORALLY EVERY 12 HOURS active Not Available Not Available No t Available Eliquis 2.5 mg tablet Take 1 tablet twice a day by oral route. active Not Available Not Available No t Available Contour Next Meter 07/07 completed Not Available Not Available Not Available Prolensa 0.07 % eye drops 03/14 completed Not Available Not Available Not Available potassium chloride ER 20 mEq tablet,exte nded release TAKE 1 TABLET BY MOUTH EVERY DAY 03/28 completed Not Available Not Available Not Available True Metrix Air Glucose Meter kit 07/07 completed Not Available Not Available Not Available Fluzone High-Dose 7533-6147 (PF) 180 mcg/0.5 mL intramuscul ar syringe ADM 0.5ML IM UTD 06/03 completed Not Available Not Available Not Available Fluzone High-Dose Quad (PF) 240 mcg/0.7 mL IM syringe ADM 0.7ML IM UTD active Not Available Not Available No t Available BinaxNOW COVID-19 Ag Self Test kit USE DIRECTED INSIDE PACKAGE 03/12 completed Not Available Not Available Not Available Vitals Date Recorded Body height Provider Name an d Address Organization Details Last Updated DateTime 03/12/2023 175.26 cm Pili Flores, [facility] 03/12/2023 13:54:11 Date Recorded Body height Provider Name an d Address Organization Details Last Updated DateTime 03/26/2023 175.26 cm Pili Flores, [facility] [place] [facility] 03/26/2023 13:54:22 Date Recorded Body height Provider Name an d Address Organization Details Last Updated DateTime 04/09/2023 175.26 cm Pili Flores, [facility] [employer] [facility] 04/09/2023 16:41:37 Date Recorded Body height Provider Name an d Address Organization Details Last Updated DateTime 05/07/2023 175.26 cm Pili Flores, [facility] [employer] [facility] 05/07/2023 17:01:19 Date Recorded Body height Provider Name an d Address Organization Details Last Updated DateTime 06/04/2023 175.26 cm Britney Grier, [facility] 06/04/2023 17:15:09 Social History Question Answer Notes LastModified by Organizat ion Details LastModified Time Tobacco Smoking Status Never Smoker Not Available [facility] 12/06/2022 04:06:49 What Was The Date Of Your Most Recent Tobacco Screening? 01/24/2021 [id number] Information not available 12/06/2022 Sex: Unknown Functional Status None recorded. Mental Status None recorded. Family History Relationship Description Onset Age of this Age Resolved Age Notes LastModified by Organization Details LastModified Time Unspecified Relation Diabetes mellitus [id number] Not available 12/06/2022 04:41:54 Unspecified Relation Hypertensive disorder [id number] Not available 12/06/2022 04:41:55 Unspecified Relation Heart disease [id number] Not available 12/06/2022 04:41:55 Unspecified Relation Family history of stroke [id number] Not available 06/04 17:13:00 Unspecified Relation Family history of malignant neoplasm [id number] Not available 06/04 17:13:00 Notes:EMPHYSEMA (MOTHER) Medical History Condition Response ARTHRITIS Y HYPERTENSION Y Past Encounters Encounter ID Performer Location Encounter Start Date Encounter Closed Date Diagnosis/Indication Diagnosis SNOMED-CT Code Diagnosis ICD10 Code Diagnosis Note [id number] Shashank Cason MD [facility] [address] [place] [address] 01/24/2021 00:00:00 01/24/2021 15:04:06 [id number] Shashank Cason MD [facility] [address] [place] [address] 02/25/2021 00:00:00 02/25/2021 11:34:30 [id number] MD [facility] [address] [place] [address] 03/14/2021 00:00:00 03/14/2021 18:40:33 [id number] MD ANDRE [facility] [address] [place] [address] 03/28/2021 00:00:00 03/28/2021 15:29:58 [id number] MD ANDRE [facility] [address] [place] [address] 05/25/2021 00:00:00 05/25/2021 12:27:32 [id number] Shashank Cason MD [facility] [address] [place] [address] 02/15/2022 00:00:00 02/15/2022 09:44:13 [id number] MD PORTILLO [facility] [place] [address] [place] [address] 02/22/2022 00:00:00 02/22/2022 08:51:39 [id number] Shashank Cason MD [facility] [place] [address] [place] [address] 11/17/2022 00:00:00 11/19/2022 17:59:56 [id number] Shashank Cason MD [facility] [address] [place] [address] 01/12/2023 09:04:23 01/15/2023 10:15:17 Pain of left shoulder joint 4696461855 9611832 M25.512 [id number] Shashank Cason MD [facility] [address] [place] [address] 02/21/2023 13:50:03 02/22/2023 11:37:23 Partial thickness rotator cuff tear 263275291 M75.102 [id number] Shashank Cason MD [facility] [address] [place] [address] 02/23/2023 10:39:12 02/23/2023 12:11:24 Partial thickness rotator cuff tear 458912972 M75.102 [id number] Shashank Cason MD [facility] [address] [place] [address] 03/12/2023 13:51:01 03/12/2023 14:45:27 Partial thickness rotator cuff tear 233512378 M75.102 [id number] Shashank Cason MD [facility] [address] [place] [address] 03/26/2023 13:52:19 03/26/2023 14:40:35 Partial thickness rotator cuff tear 237922484 M75.102 [id number] Shashank Cason MD [facility] [address] [place] [address] 04/09/2023 16:31:34 04/11/2023 14:09:19 Postoperative visit 869951354 Z09 [id number] Shashank Cason MD [facility] [address] [place] [address] 05/07/2023 16:54:42 05/09/2023 14:02:16 Partial thickness rotator cuff tear 271330091 M75.942 [id number] Shashank Cason MD [facility] [place] [address] [place] [address] 06/04/2023 17:10:17 06/04/2023 17:55:43 Pain of left shoulder joint [id number] 6221614 M25.512 Health Concerns Section Related Observation LastModified by Organization Detai ls LastModified Time None Recorded Concern Status LastModified by Organization Details LastModified Time None Recorded Advance Directives Directive None Recorded Payers Encounter Date Sequence Insurance Name Policy Number Policy Nguyen Covered Member ID Nguyen Member ID Guarantor Name 03/12/2023 1 [employer] (MEDICARE REPLACEMENT HMO) [id number] Ren Zadego Nicolás [id number] Ren Nicolás 03/26/2023 1 [employer] (MEDICARE REPLACEMENT HMO) [id number] Ren W Nicolás [id number] Ren Nicolás 04/09/2023 1 [employer] (MEDICARE REPLACEMENT HMO) [id number] Ren Zadego Nicolás [id number] Ren Nicolás 05/07/2023 1 [employer] (MEDICARE REPLACEMENT HMO) [id number] Ren Zadego Nicolás [id number] Ren Nicolás 06/04/2023 1 [employer] (MEDICARE REPLACEMENT HMO) [id number] Ren Zadego Nicolás [id number] Ren Nicolás
--- OUTSIDE RECORDS SUMMARY | 2025-02-09 00:32 | XMS_ITS | Clinical Summary ---
Author Organization [facility] Address [address] [place] [address] Care Team Providers Care Satellite Dish Installer Name Role Phone Sanjay Guerrero MD Primary Care Provider Allergies No known active allergies Medications amLODIPine (NORVASC) 5 mg tabletIndication s:hypertension Take 5 mg by mouth every morning 9 Active atorvastatin (LIPITOR) 20 mg tablet Take 20 mg by mouth nightly 9 Active fluticasone propionate (FLONASE) 50 mcg/actuation nasal sprayIndications :Allergic Rhinitis Administer 1 spray into each nostril daily as needed 5 Active indapamide (LOZOL) 2.5 mg tabletIndication s:hypertension Take 2.5 mg by mouth every morning 9 Active POTASSIUM CHLORIDE ER 20 mEq CR tabletIndication s:supplement Take 20 mEq by mouth 2 (two) times a day 9 Active ramipril (ALTACE) 10 mg capsuleIndicatio ns:hypertension Take 10 mg by mouth every morning 9 Active rOPINIRole (REQUIP) 3 mg tablet 9 Active tamsulosin (FLOMAX) 0.4 mg extended release capsuleIndicatio ns:benign prostatic hyperplasia with lower urinary tract sx Take 0.4 mg by mouth nightly 9 Active mdgdkwko-tcn-lyc ic-vit K-lycop 400-20-370 mcg tabletIndication s:supplement Take 1 tablet by mouth every morning Active aspirin 81 mg enteric coated tabletIndication s:prevention of thrombosis Take 81 mg by mouth 2 (two) times a day Active lutein-zeaxanthi n 25-5 mg capsuleIndicatio ns:eye health Take 1 capsule by mouth every morning Active ascorbic acid (VITAMIN C) 1,000 mg tabletIndication s:Vitamin C Deficiency Take 1,000 mg by mouth every morning Active omeprazole (PriLOSEC) 20 mg capsuleIndicatio ns:acid reflux Take 20 mg by mouth every morning Active psyllium 0.52 gram capsule Take 0.52 g by mouth every morning Take 5 capsules in the morning Active coenzyme Q10 400 mg capsuleIndicatio ns:supplement Take 400 mg by mouth every morning Active magnesium oxide 400 mg magnesium capsuleIndicatio ns:supplement Take 1 capsule by mouth every morning Active acidophilus-pect in, citrus 100 million cell-10 mg capsuleIndicatio ns:supplement Take 1 capsule by mouth every morning Active wxjeqzsc-usrml-p yalu-CF borate 750 mg-100 mg- 1.65 mg-108 mg tabletIndication s:joint health Take 1 tablet by mouth every morning Active turmeric 400 mg capsuleIndicatio ns:supplement Take 1 capsule by mouth every morning Active cinnamon bark 500 mg capsuleIndicatio ns:supplement Take 500 mg by mouth 2 (two) times a day Active pyridoxine (VITAMIN B-6) 25 mg tabletIndication s:supplement Take 25 mg by mouth daily after dinner Active cyanocobalamin (Vitamin B-12) 250 mcg tabletIndication s:supplement Take 250 mcg by mouth daily after dinner Active spironolactone (ALDACTONE) 25 mg tablet Take 25 mg by mouth daily 0 Active fexofenadine (KEYUR) 180 mg tablet Take 180 mg by mouth daily Active pseudoephedrine ER (SUDAFED) 120 mg 12 hr tabletIndication s:Nasal Congestion Take 120 mg by mouth every 12 (twelve) hours Active predniSONE (DELTASONE) 10 mg tabletIndication s:ETD (Eustachian tube dysfunction), bilateral 2 tablets twice daily for 5 days, then 2 tablets daily for 3 days, then 1 tablet daily for 3 days. 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 Observe. - Likely dry AMD, MVI, smoking avoidance, BP control reviewed, Pt monitors [facility] at home with AG. Recommend follow up with Dr. Borrego in a few months. Assessment & Plan (04/14/2021 3:39 PM CDT): H/o AMD OU OCT with PED, drusen without fluid - improved OD Recommend Amsler grid monitoring, continue tobacco abstinence, blood pressure control and multivitamin therapy. Will re-evaluate roughly 4 months, should all remain stable, will spread out his appointments and eventually return him to Dr. Borrego's care. Assessment & Plan (03/03/2021 2:14 PM CDT): H/o AMD OU OCT with PED, drusen without fluid. Recommend Amsler grid monitoring, continue tobacco abstinence, blood pressure control and multivitamin therapy. Discussed the option of fluorescein angiography as well as risks, benefits of the procedure. Given history of AMD we will defer for now, should he develop SRF/IRF will consider need for FA. Will re-evaluate roughly 6 weeks time, should all remain stable, will spread out his appointments and eventually return him to Dr. Borrego's care. Choroidal lesion 02/19/2020 Assessment & Plan (08/18/2021 4:22 PM ENGRAVER SET UP OPERATOR): Stable exam and imaging. Continue to observe. Recommend follow up with Dr. Borrego, should lesion change in size or shape will be happy to re-evaluate. Assessment & Plan (04/14/2021 3:38 PM CDT): Remains stable today, recommend observation. We will re-evaluate roughly 4 months time. Assessment & Plan (03/03/2021 2:14 PM CDT): 2 month follow-up- early return after CE/IOL OD, requested by Dr. Borrego due to OCT findings. Appears stable since last exam with reassuring features (drusen), absence of suspicious features. Recommend observation at this time. Assessment & Plan (12/16/2020 2:19 PM ENGRAVER SET UP OPERATOR): Has remained stable over the last 8 months or so. Has reassuring features such as overlying drusen, no subretinal fluid, no orange pigment. Size appears unchanged. Considering the stability I think it be reasonable for him to have cataract surgery in the right eye if he would like. I would like to re-evaluate him in roughly 6 months time to assure that the lesion remains unchanged. Assessment & Plan (06/17/2020 3:26 PM CDT): Patient referred by Dr. Katherine Borrego for a choroidal lesion in the right eye. Lesion appears stable today at 4 months, and is likely of low risk given depth < 2mm, lack of orange pigment, subretinal fluid or symptomatic vision change. Consider continued observation, will re-evaluate in 6 months time period all remains stable will recommend follow-up with Dr. Borrego. Assessment & Plan (02/19/2020 9:49 AM CDT): Patient referred by Dr. Katherine Borrego for a choroidal lesion in the right eye. Fundus photos and ultrasound today were done without high risk features at this time, being about 1.11mm in height, without orange pigmentation or subretinal fluid. We would recommend monitoring for now and have the patient return in 4 months time to repeat imaging to evaluate for progression. Vitreous syneresis, bilateral 02/19/2020 Assessment & Plan (02/19/2020 9:50 AM CDT): -Stable, continue to monitor Age-related nuclear cataract 02/19/2020 Assessment & Plan (12/16/2020 2:17 PM ENGRAVER SET UP OPERATOR): The lesion in the right eye appears unchanged, he is interested in cataract surgery. Considering the lesion stability I think it be reasonable for him to have cataract surgery. Assessment & Plan (02/19/2020 9:54 AM CDT): Does have some mild cataractous changes, recommended observation especially for the right eye as I'd like to assure that the lesion in the right eye does not change. Regarding the left eye, should he wish to have cataract surgery I think it be safe for him to have it, the I think the decision for surgery in the left eye is entirely up to him. Complete tear of right rotator cuff 07/02/2019 Overview (07/02/2019): Added automatically from request for surgery [id number] Surgical History Surgery Date Site/Laterality Comments TONSILLECTOMY 10/08/1952 - 10/07/1953 ORIF FINGER / THUMB FRACTURE 10/08/1963 - 10/07/1964 Left COLONOSCOPY 10/08/2017 - 10/07/2018 numerous colonoscopy WISDOM TOOTH EXTRACTION BACK SURGERY ELBOW SURGERY EYE SURGERY cataracts KNEE SURGERY Left Medical History Medical History Date Comments PONV (postoperative nausea and vomiting) with wisdom teeth at age 22 HTN (hypertension) Sleep apnea RITA on CPAP BPH (benign prostatic hyperplasia) GERD (gastroesophageal reflux disease) Anxiety Sinusitis HL (hearing loss) Family History Medical History Relation Name Comments Hypertension Brother Heart attack Father fatal Cancer Paternal Grandfather Diabetes Paternal Grandmother Glaucoma Neg Hx Relation Name Status Comments Brother Father Paternal Grandfather Paternal Grandmother Social History Tobacco Use Types Packs/Day Years Used Date Smoking Tobacco: Former Cigarettes 1971 Smokeless Tobacco: Never Alcohol Use Standard Drinks/Week Comments Never 0 (1 standard drink = 0.6 oz pur e alcohol) AUDIT-C Answer Date Recorded Frequency of Alcohol Consumption Never 07/03/2019 Average Number of Drinks Not on file 019 Frequency of Binge Drinking Not on file 06/09 Sex and Gender Information Value Date Recorded Sex Assigned at Not on file Legal Sex Male 3:43 AM ENGRAVER SET UP OPERATOR Gender Identity Not on file Sexual Orientation Not on file Obstetrics History Last Filed Vital Signs Vital Sign Reading Time Taken Comments Blood Pressure 129/79 07/07/2019 4:10 PM CDT Pulse 60 07/07/2019 4:35 PM CDT Temperature 36 C (96.8 F) 07/07/2019 2:40 PM CDT Respiratory Rate 18 09/15/2022 1:03 PM ENGRAVER SET UP OPERATOR Oxygen Saturation 93% 07/07/2019 4:35 PM CDT Inhaled Oxygen Concentration - - Weight 90.7 kg (200 lb) 09/15/2022 1:03 PM ENGRAVER SET UP OPERATOR Height 177.8 cm (5' 10 ) 09/15/2022 1:03 PM ENGRAVER SET UP OPERATOR Body Mass Index 28.7 09/15/2022 1:03 PM ENGRAVER SET UP OPERATOR Plan of Treatment Health Maintenance Due Date Last Done Comments Depression Screening 1946 Fall Risk Assessment 1945 Hepatitis C Screening 1945 Hepatitis B Screening 1964 Zoster Vaccine (1 of 2) 1996 Abdominal Aortic Aneurysm (A AA) Screen 2011 Well Visit 65+ 2011 Covid-19 Vaccine ( season) 2024, 12/06/2020 Influenza Vaccine (#1) 2024 9, 08/16/2018, 09/22/2015 DTaP/Tdap/Td Vaccine (3 - Td or Tdap) 10/14/202504/2016, 04/17/2006 Pneumococcal vaccine 65+ Completed 09/13/2017, 04/2016 Medical Devices Implanted Type Area Health Information Tech Device Identifier Shelf Expiration Date Model / Serial / Lot [employer] Ar-1927bct Corkscrew Suturetape 5.5mm 14.7mm Bioabsorbable Full Thread 1.3mm - Sn/A - [id number] Implanted:Qty: 1 on 07/07/2019 by Jose Luis Newell MD at [facility] Other - see comments Right: Shoulder [employer] [id number] 02/04/20[address] AR-1927B CT / N/A / [id number] [employer] Ar-1927bct Corkscrew Suturetape 5.5mm 14.7mm Bioabsorbable Full Thread 1.3mm - Sn/A - [id number] Implanted:Qty: 1 on 07/07/2019 by Jose Luis Newell MD at [facility] Other - see comments Right: Shoulder [employer] [id number] 04/06/20[address] AR-[address] / N/A / [id number] [employer] Ar-1927bct Corkscrew Suturetape 5.5mm 14.7mm Bioabsorbable Full Thread 1.3mm - Sn/A - [id number] Implanted:Qty: 1 on 07/07/2019 by Jose Luis Newell MD at [facility] Other - see comments Right: Shoulder [employer] [id number] 01/05/2021 AR-[address] CT / N/A / [id number] [employer] Ar-2324 Bcm Swivelock 4.75mm 24.5mm Self Punch Vent Shoulder [place] Suture - Sn/A - [id number] Implanted:Qty: 1 on 07/07/2019 by Jose Luis Newell MD at [facility] Other - see comments Right: Shoulder [employer] 04/06/2021 AR-2324B CM / N/A / [id number] [employer] Ar-2324 Bcm Swivelock 4.75mm 24.5mm Self Punch Vent Shoulder [place] Suture - Sn/A - [id number] Implanted:Qty: 1 on 07/07/2019 by Jose Luis Newell MD at [facility] Other - see comments Right: Shoulder [employer] 04/06/2021 AR-2324B CM / N/A / [id number] [employer] Ar-2290 Fiberloop 3.2mm Drill Pin Needle Shoehorn Cannula Kit Suture - Sn/A - [id number] Implanted:Qty: 1 on 07/07/2019 by Jose Luis Newell MD at [facility] Other - see comments Right: Shoulder [employer] [id number] 12/06/2023 AR-2290 / N/A / [id number] Insurance [facility] [employer] CHOICE MEDICARE PPO MEDICARE Care Teams Satellite Dish Installer Relationship Specialty Start Date End Date Sanjay Guerrero MD PCP - General Family Practice 12/16/20
--- OUTSIDE RECORDS SUMMARY | 2025-02-09 00:32 | XMS_ITS | Referral Summary ---
Author Organization [facility] Address [address] [place] [address] Care Team Providers Care Rabbit Breeder Name Role Phone Sanjay Guerrero MD Primary [...] 0.4 mg by mouth nightly 9 Active dvllivnw-ojt-ayc ic-vit K-lycop 400-20-370 mcg tabletIndication s:supplement Take [...] 1 capsule by mouth every morning Active neirdumf-zjgiw-g yalu-CF borate 750 mg-100 mg- 1.65 mg-108 [...] 03/03/2021 Assessment & Plan (08/18/2021 4:24 PM ASSEMBLER STEAM AND GAS TURBINE): Stable exam and OCT. Observe. - Likely [...] 02/19/2020 Assessment & Plan (08/18/2021 4:22 PM ASSEMBLER STEAM AND GAS TURBINE): Stable exam and imaging. Continue to observe. [...] time. Assessment & Plan (12/16/2020 2:19 PM ASSEMBLER STEAM AND GAS TURBINE): Has remained stable over the last 8 [...] 02/19/2020 Assessment & Plan (12/16/2020 2:17 PM ASSEMBLER STEAM AND GAS TURBINE): The lesion in the right eye appears [...] (07/02/2019): Added automatically from request for surgery [id number] Social History Tobacco Use Types Packs/Day Years Used Date Smoking Tobacco: Former Cigarettes 1 1971 Smokeless Tobacco: Never Alcohol Use Standard [...] on file Legal Sex Male 3:43 AM ASSEMBLER STEAM AND GAS TURBINE Gender Identity Not on file Sexual Orientation Not on file Last Filed Vital Signs Vital Sign Reading Time Taken Comments Blood Pressure 129/79 07/07/2019 4:10 PM CDT Pulse 60 07/07/2019 4:35 PM CDT Temperature 36 C (96.8 F) 07/07/2019 2:40 PM CDT Respiratory Rate 18 09/15/2022 1:03 PM ASSEMBLER STEAM AND GAS TURBINE Oxygen Saturation 93% 07/07/2019 4:35 PM CDT Inhaled Oxygen Concentration - - Weight 90.7 kg (200 lb) 09/15/2022 1:03 PM ASSEMBLER STEAM AND GAS TURBINE Height 177.8 cm (5' 10 ) 09/15/2022 1:03 PM ASSEMBLER STEAM AND GAS TURBINE Body Mass Index 28.7 09/15/2022 1:03 PM ASSEMBLER STEAM AND GAS TURBINE Plan of Treatment Not on file Medical Devices Implanted Type Area Air Export Operations Agent Device Identifier Shelf Expiration Date Model / Serial / Lot [employer] Ar-1927bct Corkscrew Suturetape 5.5mm 14.7mm Bioabsorbable Full Thread 1.3mm - Sn/A - [id number] Implanted:Qty: 1 on 07/07/2019 by Jose Luis Newell MD at [facility] Other - see comments Right: Shoulder [employer] [id number] 02/04/20[address] AR-[address] / N/A / [id number] [employer] Ar-1927bct Corkscrew Suturetape 5.5mm 14.7mm Bioabsorbable Full Thread 1.3mm - Sn/A - [id number] Implanted:Qty: 1 on 07/07/2019 by Jose Luis Newell MD at [facility] Other - see comments Right: Shoulder [employer] [id number] 04/06/[address] AR-[address] / N/A / [id number] [employer] Ar-1927bct Corkscrew Suturetape 5.5mm 14.7mm Bioabsorbable Full Thread 1.3mm - Sn/A - [id number] Implanted:Qty: 1 on 07/07/2019 by Jose Luis Newell MD at [facility] Other - see comments Right: Shoulder [employer] [id number] 01/05/[address] AR-[address] / N/A / [id number] [employer] Ar-2324 Bcm Swivelock 4.75mm 24.5mm Self Punch Vent Shoulder [place] Suture - Sn/A - [id number] Implanted:Qty: 1 on 07/07/2019 by Jose Luis Newell MD at [facility] Other - see comments Right: Shoulder [employer] 04/06/2021 AR-2324B CM / N/A / [id number] [employer] Ar-2324 Bcm Swivelock 4.75mm 24.5mm Self Punch Vent Shoulder [place] Suture - Sn/A - [id number] Implanted:Qty: 1 on 07/07/2019 by Jose Luis Newell MD at [facility] Other - see comments Right: Shoulder [employer] 04/06/2021 AR-2324B CM / N/A / [id number] [employer] Ar-2290 Fiberloop 3.2mm Drill Pin Needle Shoehorn Cannula Kit Suture - Sn/A - [id number] Implanted:Qty: 1 on 07/07/2019 by Jose Luis Newell MD at [facility] Other - see comments Right: Shoulder [employer] [id number] 12/06/2023 AR-2290 / N/A / [id number] Insurance [facility] [employer] CHOICE MEDICARE PPO MEDICARE Care Teams Rabbit Breeder Relationship Specialty Start Date End Date Sanjay Guerrero MD PCP - General Family Practice 12/16/20
[2025-02-09 08:52] VITALS: BP 127/67; PULSE 60; RESP 20; TEMP 36.1; O2SAT 98; BMI 29.2
[2025-02-09] MEDS: LACTATED RINGERS 1,000 ML 150 ML IV CONT (09:04)
--- NOTE | 2025-02-09 09:13 | P.PNAN_ITS ---
Anes - Initial Pre Proc Eval Procedure: Operation Date: 02/09/25 09:00 Proposed Procedures p Screening Colonoscopy - Alexey Jorge MD Date/Time: 02/09/25 09:13 Surgeon: Alexey Jorge MD Pre Op Diagnosis: hx colon polyps Patient Data Age: 79 Gender: M Height: 1.78 m Weight: 92.6 kg Last Vital Signs Temp 97 F L 02/09/25 08:52 Pulse 60 02/09/25 08:52 Resp 20 02/09/25 08:52 BP 127/67 02/09/25 08:52 Pulse Ox 98 02/09/25 08:52 O2 Del Method Room Air 02/09/25 08:52 Allergies Allergy/AdvReac Type Severity Reaction Status Date / Time alcohol (From Mastisol AdvReac Intermediate Blister Verified 02/09/25 08:50 Liquid Adhesive) gum mastic (From Mastisol AdvReac Intermediate Blister Verified 02/09/25 08:50 Liquid Adhesive) methyl salicylate (From AdvReac Intermediate Blister Verified 02/09/25 08:50 Mastisol Liquid Adhesive) storax (From Mastisol Liquid AdvReac Intermediate Blister Verified 02/09/25 08:50 Adhesive) Home Medications ?Medication ?Instructions ?Recorded ?Confirmed ?Type Lactobac 100 mg PO DAILY 09/23/19 02/09/25 History 47-B.animal,bifid-S.thermo 10 billion cell-FOS 100 mg capsule (Probiotic Complex (with FOS)) ascorbic acid (vitamin C) 1,000 mg 1 gm PO DAILY 09/23/19 02/09/25 History tablet cinnamon bark 500 mg capsule 1,000 mg PO BID 09/23/19 02/09/25 History (Cinnamon) lutein 25 mg-zeaxanthin 5 mg 1 cap PO DAILY 09/23/19 02/09/25 History capsule (Ocuvite Lutein) magnesium oxide 400 mg PO DAILY 09/23/19 02/09/25 History jegudufv-mc-cfvdx 300 mcg-K 60 1 tablet PO DAILY 09/23/19 02/09/25 History mcg-lycop 600 mcg-lutein 300 mcg tablet (Men 50 Plus Multivitamin) omeprazole magnesium 20 mg 20 mg PO DAILY 09/23/19 02/09/25 History tablet,delayed release (Prilosec OTC) blood-glucose meter #1 ea 11/05/19 02/04/25 Rx coQ10 (ubiquinol) 200 mg capsule 400 mg PO DAILY 01/28/21 02/09/25 History cyanocobalamin (vitamin B-12) 100 200 mcg PO DAILY 01/28/21 02/09/25 History mcg tablet glucosam 750 mg-chondroi 100 1 tablet PO DAILY 01/28/21 02/09/25 History mg-hyalur 1.65 mg-CF borate 108 mg tablet (Move Free SocialF5) vit C,E,zinc,copper-dpfwc3n 250 1 cap PO DAILY 04/19/21 02/09/25 History mg-lutein 5 mg-zeaxanthin 1 mg capsule (Ocuvite Adult 50 Plus) blood sugar diagnostic (Contour #100 ea 10/14/21 02/04/25 Rx Next Test Strips) coffee extract 50 mg-phosphatidyl 1 tablet PO DAILY 11/01/21 02/09/25 History serine 50 mg chewable tablet (Neuriva Original) lancets (Microlet Lancet) #100 ea 11/08/21 02/04/25 Rx zinc acetate 50 mg (zinc) capsule 50 mg PO DAILY 12/18/22 02/09/25 History (Galzin) vitamin E (dl, acetate) 180 mg 180 mg PO DAILY 02/01/23 02/09/25 History (400 unit) capsule pyridoxine (vitamin B6) 25 mg 100 mg PO DAILY 06/19/23 02/09/25 History tablet fluticasone propionate 50 2 spray intranasal PRN PRN Allergy 07/12/23 02/04/25 Rx mcg/actuation nasal Symptoms #16 grams spray,suspension (Allergy Relief (fluticasone)) ubidecarenone-omega 3-vit E 25 1 cap PO DAILY 01/16/24 02/09/25 History mg-150 (90-60) mg-200 unit capsule (Co Z-68-Hcszmua E-Fish Oil) potassium chloride 10 mEq 10 meq PO DAILY #90 tabs 09/14/24 02/09/25 Rx tablet,extended release ramipril 10 mg capsule 10 mg PO DAILY #90 caps 10/19/24 02/09/25 Rx apixaban 5 mg tablet (Eliquis) See Rx Instructions .Route 12/08/24 02/09/25 Rx .COMPLEX #180 tabs amlodipine 5 mg tablet 5 mg PO DAILY #90 tabs 01/29/25 02/09/25 Rx atorvastatin 20 mg tablet See Rx Instructions .Route 01/29/25 02/09/25 Rx .COMPLEX #90 tabs ropinirole 2 mg tablet 2 mg PO QHS #90 tabs 01/29/25 02/09/25 Rx sotalol 80 mg tablet See Rx Instructions .Route 01/29/25 02/09/25 Rx .COMPLEX #90 tabs spironolactone 25 mg tablet 25 mg PO DAILY #90 tabs 01/29/25 02/09/25 Rx tamsulosin 0.4 mg capsule 0.4 mg PO DAILY #90 caps 01/29/25 02/09/25 Rx Patient hx anesthesia problems: none Family hx anesthesia problems: none Results Review: All pre-operative results and documents have been reviewed as part of the pre- operative evaluation. [facility] Past Medical History Medical History Hypomagnesemia Vitamin deficiency Overactive bladder Afib Basal cell carcinoma Adult BMI 31.0-31.9 kg/sq m Cervical spondylosis with radiculopathy Low serum total protein level Elevated liver function tests Tingling of right upper extremity Muscle right arm weakness BMI 29.0-29.9,adult Skin tag History of colon polyps Environmental allergies Prediabetes Screening for AAA (abdominal aortic aneurysm) Negative for AA (09/2020) Erectile dysfunction Rosacea (~2012) RLS (restless legs syndrome) (~2017) Glaucoma (~2014) BPH (benign prostatic hyperplasia) (~2016) Benign essential hypertension (~2009) Hypokalemia RITA on CPAP Osteoarthritis involving multiple joints on both sides of body Dyslipidemia GERD (gastroesophageal reflux disease) (~2009) Rotator cuff disorder (~2018) Surgical History Surgical History History of left knee replacement 02/2021 Total knee replacement status (~2020) History of repair of right rotator cuff 06/2019 History of cataract surgery left eye - 03/27 H/O elbow surgery left cubital tunnel release - 03/27 History of lumbar surgery 11/27 L3,4,5 Family History Family History Mother Family history of cardiovascular disease Family history of emphysema Tobacco abuse Father Family history of cardiovascular disease Acute myocardial infarction CHF (congestive heart failure) Tobacco abuse Grandparent , cancer No problems noted. Grandparent Diabetes mellitus dx'd in her 20's. treated w/ insulin Sibling Malignant neoplasm of prostate Diabetes mellitus Alcoholism Social History Social History Social History: Caffeine-Daily Years smoked: 9 Smoking status: Former smoker Tobacco type: pipe Second hand tobacco smoke exposure: Yes Smoking end date: 12/23/71 Additional smoking assessment comments: DENIES ANY FORM OF TOBACCO USE Alcohol intake: former Alcohol use details: DRANK UP TO PT WEEKLY FOR 5 YRS - QUIT 12/23/1971 Substance use: never Substance use type: does not use Do You Feel Safe in your Home?: Yes Lack of Transportation: No Lack of Food: Never True Current Housing: I Have Housing Concerned About Future Housing: No Difficulty Paying Gas/Electric Bills: No Difficulty Paying for Meds: No Currently Unemployed: YES Education: Master's Degree or Higher Difficulty w/ Childcare or Family Care: No Living arrangements: with family Occupation/Education: occupation 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 HTN, hyperlipidemia, RITA on CPAP, hx of occ afib, still on AC and mostly NSR. Had episode intraop w sx 2018. Informed Consent: The patient's anesthetic plan and its attendant risks and benefits were discuss ed with the patient/family/POA. Questions were solicited and answers provided to the satisfaction of the patient/family/POA.
--- NOTE | 2025-02-09 09:22 | PM.HPGS ---
History of Present Illness History of Present Illness Consent: Risks, benefits, and alternatives have been discussed and questions answered. Patient agrees to proceed with procedure. Chief complaint: hx colon polyps Narrative: Ren Monzon is a 79 year old male with colon polyp in 2021 Review of Systems Review of Systems: All systems reviewed & are unremarkable except as noted in HPI and below PMFSH Past Medical History Medical History (Updated 02/09/25 @ 09:27 by Alexey Jorge MD) Colon polyp Hypomagnesemia Vitamin deficiency Overactive bladder Afib Basal cell carcinoma Adult BMI 31.0-31.9 kg/sq m Cervical spondylosis with radiculopathy Low serum total protein level Elevated liver function tests Tingling of right upper extremity Muscle right arm weakness BMI 29.0-29.9,adult Skin tag History of colon polyps Environmental allergies Prediabetes Screening for AAA (abdominal aortic aneurysm) Negative for AA (09/2020) Erectile dysfunction Rosacea (~2012) RLS (restless legs syndrome) (~2017) Glaucoma (~2014) BPH (benign prostatic hyperplasia) (~2016) Benign essential hypertension (~2009) Hypokalemia RITA on CPAP Osteoarthritis involving multiple joints on both sides of body Dyslipidemia GERD (gastroesophageal reflux disease) (~2009) Rotator cuff disorder (~2018) Surgical History Surgical History History of left knee replacement 02/2021 Total knee replacement status (~2020) History of repair of right rotator cuff 06/2019 History of cataract surgery left eye - 03/27 H/O elbow surgery left cubital tunnel release - 03/27 History of lumbar surgery 11/27 L3,4,5 Family History Family History Mother Family history of cardiovascular disease Family history of emphysema Tobacco abuse Father Family history of cardiovascular disease Acute myocardial infarction CHF (congestive heart failure) Tobacco abuse Grandparent , cancer No problems noted. Grandparent Diabetes mellitus dx'd in her 20's. treated w/ insulin Sibling Malignant neoplasm of prostate Diabetes mellitus Alcoholism Social History Social History Social History: Caffeine-Daily Years smoked: 9 Smoking status: Former smoker Tobacco type: pipe Second hand tobacco smoke exposure: Yes Smoking end date: 12/23/71 Additional smoking assessment comments: DENIES ANY FORM OF TOBACCO USE Alcohol intake: former Alcohol use details: DRANK UP TO PT WEEKLY FOR 5 YRS - QUIT 12/23/1971 Substance use: never Substance use type: does not use Do You Feel Safe in your Home?: Yes Lack of Transportation: No Lack of Food: Never True Current Housing: I Have Housing Concerned About Future Housing: No Difficulty Paying Gas/Electric Bills: No Difficulty Paying for Meds: No Currently Unemployed: YES Education: Master's Degree or Higher Difficulty w/ Childcare or Family Care: No Living arrangements: with family Occupation/Education: occupation 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) Gender identity (if verbalized by the patient): Male Spiritual care concerns: No Agree to blood products: Yes Meds Home Medications and Allergies Home Medications ?Medication ?Instructions ?Recorded ?Confirmed ?Type Lactobac 100 mg PO DAILY 09/23/19 02/09/25 History 47-B.animal,bifid-S.thermo 10 billion cell-FOS 100 mg capsule (Probiotic Complex (with FOS)) ascorbic acid (vitamin C) 1,000 mg 1 gm PO DAILY 09/23/19 02/09/25 History tablet cinnamon bark 500 mg capsule 1,000 mg PO BID 09/23/19 02/09/25 History (Cinnamon) lutein 25 mg-zeaxanthin 5 mg 1 cap PO DAILY 09/23/19 02/09/25 History capsule (Ocuvite Lutein) magnesium oxide 400 mg PO DAILY 09/23/19 02/09/25 History yxpbqzta-df-emdkt 300 mcg-K 60 1 tablet PO DAILY 09/23/19 02/09/25 History mcg-lycop 600 mcg-lutein 300 mcg tablet (Men 50 Plus Multivitamin) omeprazole magnesium 20 mg 20 mg PO DAILY 09/23/19 02/09/25 History tablet,delayed release (Prilosec OTC) blood-glucose meter #1 ea 11/05/19 02/04/25 Rx coQ10 (ubiquinol) 200 mg capsule 400 mg PO DAILY 01/28/21 02/09/25 History cyanocobalamin (vitamin B-12) 100 200 mcg PO DAILY 01/28/21 02/09/25 History mcg tablet glucosam 750 mg-chondroi 100 1 tablet PO DAILY 01/28/21 02/09/25 History mg-hyalur 1.65 mg-CF borate 108 mg tablet ([facility] [employer]) vit C,E,zinc,copper-ndsrp8n 250 1 cap PO DAILY 04/19/21 02/09/25 History mg-lutein 5 mg-zeaxanthin 1 mg capsule (Ocuvite Adult 50 Plus) blood sugar diagnostic (Contour #100 ea 10/14/21 02/04/25 Rx Next Test Strips) coffee extract 50 mg-phosphatidyl 1 tablet PO DAILY 11/01/21 02/09/25 History serine 50 mg chewable tablet (Neuriva Original) lancets (Microlet Lancet) #100 ea 11/08/21 02/04/25 Rx zinc acetate 50 mg (zinc) capsule 50 mg PO DAILY 12/18/22 02/09/25 History (Galzin) vitamin E (dl, acetate) 180 mg 180 mg PO DAILY 02/01/23 02/09/25 History (400 unit) capsule pyridoxine (vitamin B6) 25 mg 100 mg PO DAILY 06/19/23 02/09/25 History tablet fluticasone propionate 50 2 spray intranasal PRN PRN Allergy 07/12/23 02/04/25 Rx mcg/actuation nasal Symptoms #16 grams spray,suspension (Allergy Relief (fluticasone)) ubidecarenone-omega 3-vit E 25 1 cap PO DAILY 01/16/24 02/09/25 History mg-150 (90-60) mg-200 unit capsule (Co E-28-Wcgckqn E-Fish Oil) potassium chloride 10 mEq 10 meq PO DAILY #90 tabs 09/14/24 02/09/25 Rx tablet,extended release ramipril 10 mg capsule 10 mg PO DAILY #90 caps 10/19/24 02/09/25 Rx apixaban 5 mg tablet (Eliquis) See Rx Instructions .Route 12/08/24 02/09/25 Rx .COMPLEX #180 tabs amlodipine 5 mg tablet 5 mg PO DAILY #90 tabs 01/29/25 02/09/25 Rx atorvastatin 20 mg tablet See Rx Instructions .Route 01/29/25 02/09/25 Rx .COMPLEX #90 tabs ropinirole 2 mg tablet 2 mg PO QHS #90 tabs 01/29/25 02/09/25 Rx sotalol 80 mg tablet See Rx Instructions .Route 01/29/25 02/09/25 Rx .COMPLEX #90 tabs spironolactone 25 mg tablet 25 mg PO DAILY #90 tabs 01/29/25 02/09/25 Rx tamsulosin 0.4 mg capsule 0.4 mg PO DAILY #90 caps 01/29/25 02/09/25 Rx Allergies Allergy/AdvReac Type Severity Reaction Status Date / Time alcohol (From Mastisol AdvReac Intermediate Blister Verified 02/09/25 08:50 Liquid Adhesive) gum mastic (From Mastisol AdvReac Intermediate Blister Verified 02/09/25 08:50 Liquid Adhesive) methyl salicylate (From AdvReac Intermediate Blister Verified 02/09/25 08:50 Mastisol Liquid Adhesive) storax (From Mastisol Liquid AdvReac Intermediate Blister Verified 02/09/25 08:50 Adhesive) Vital Signs Vital Signs - 24 hr 02/09/25 08:52 Temperature 97 F L Pulse Rate 60 Respiratory Rate 20 Blood Pressure 127/67 Pulse Oximetry 98 Oxygen Delivery Room Air Assessment and Plan Assessment and plan (1) Colon polyp: Code(s): K63.5 - Polyp of colon Status: Acute Assessment and Plan: colonoscopy
[2025-02-09 09:44] VITALS: BP 97/57; PULSE 58; RESP 14; O2SAT 94
[2025-02-09 09:54] VITALS: BP 104/73; PULSE 57; RESP 14; O2SAT 95
[2025-02-09 10:04] VITALS: BP 107/61; PULSE 58; RESP 12; O2SAT 97
== END 2025-02-09 10:16 | disposition home or self-care (01) ==
PROVIDERS: PCP Family Medicine; Referring Provider Internal Medicine Gastroenterology; Visit Provider Internal Medicine Gastroenterology
PROC: 0DJD8ZZ Inspection of Lower Intestinal Tract, Via Natural or Artificial Opening Endoscopic (ICD-10-PCS; CPT 45378; principal; 2025-02-09 09:00)
DX: Z12.11 Encounter for screening for malignant neoplasm of colon (principal); D12.3 Benign neoplasm of transverse colon; D12.4 Benign neoplasm of descending colon; K57.30 Diverticulosis of large intestine without perforation or abscess without bleeding; K64.8 Other hemorrhoids; Z87.891 Personal history of nicotine dependence; E66.9 Obesity, unspecified; Z68.29 Body mass index [BMI] 29.0-29.9, adult
CPT/HCPCS: 45385; 45380; 88305; J2704; J7120

== ENCOUNTER 2025-02-10 07:20 | Outpatient (CLI) | payer OTHER, SELFPAY ==
--- OUTSIDE RECORDS SUMMARY | 2025-02-10 07:31 | XMS_ITS | Referral Summary ---
Author Organization [facility] Address [address] [place] [address] Care Team Providers Care Bridge Opener Name Role Phone Sanjay Guerrero MD Primary [...] 0.4 mg by mouth nightly 9 Active vieclsbq-asv-zme ic-vit K-lycop 400-20-370 mcg tabletIndication s:supplement Take [...] 1 capsule by mouth every morning Active rtghlopv-wvbbr-l yalu-CF borate 750 mg-100 mg- 1.65 mg-108 [...] 03/03/2021 Assessment & Plan (08/18/2021 4:24 PM STEEL ENGRAVER): Stable exam and OCT. Observe. - Likely [...] 02/19/2020 Assessment & Plan (08/18/2021 4:22 PM STEEL ENGRAVER): Stable exam and imaging. Continue to observe. [...] time. Assessment & Plan (12/16/2020 2:19 PM STEEL ENGRAVER): Has remained stable over the last 8 [...] 02/19/2020 Assessment & Plan (12/16/2020 2:17 PM STEEL ENGRAVER): The lesion in the right eye appears [...] (07/02/2019): Added automatically from request for surgery [id number] Social History Tobacco Use Types Packs/Day Years [...] on file Legal Sex Male 3:43 AM STEEL ENGRAVER Gender Identity Not on file Sexual Orientation Not on file Last Filed Vital Signs Vital Sign Reading Time Taken Comments Blood Pressure 129/79 07/07/2019 4:10 PM CDT Pulse 60 07/07/2019 4:35 PM CDT Temperature 36 C (96.8 F) 07/07/2019 2:40 PM CDT Respiratory Rate 18 09/15/2022 1:03 PM STEEL ENGRAVER Oxygen Saturation 93% 07/07/2019 4:35 PM CDT Inhaled Oxygen Concentration - - Weight 90.7 kg (200 lb) 09/15/2022 1:03 PM STEEL ENGRAVER Height 177.8 cm (5' 10 ) 09/15/2022 1:03 PM STEEL ENGRAVER Body Mass Index 28.7 09/15/2022 1:03 PM STEEL ENGRAVER Plan of Treatment Not on file Medical Devices Implanted Type Area Eeler Device Identifier Shelf Expiration Date Model / Serial / Lot [employer] Ar-1927bct Corkscrew Suturetape 5.5mm 14.7mm Bioabsorbable Full Thread 1.3mm - Sn/A - [id number] Implanted:Qty: 1 on 07/07/2019 by Jose Luis Newell MD at [facility] Other - see comments Right: Shoulder [employer] [id number] 02/04/2021 AR-1927B CT / N/A / [id number] [employer] Ar-1927bct Corkscrew Suturetape 5.5mm 14.7mm Bioabsorbable Full Thread 1.3mm - Sn/A - [id number] Implanted:Qty: 1 on 07/07/2019 by Jose Luis Newell MD at [facility] Other - see comments Right: Shoulder [employer] [id number] 04/06/2021 AR-1927B CT / N/A / [id number] [employer] Ar-1927bct Corkscrew Suturetape 5.5mm 14.7mm Bioabsorbable Full Thread 1.3mm - Sn/A - [id number] Implanted:Qty: 1 on 07/07/2019 by Jose Luis Newell MD at [facility] Other - see comments Right: Shoulder [employer] [id number] 01/05/2021 AR-19[address]B CT / N/A / [id number] [employer] Ar-2324 Bcm Swivelock 4.75mm 24.5mm Self Punch Vent Shoulder [place] Suture - Sn/A - [id number] Implanted:Qty: 1 on 07/07/2019 by Jose Luis Newell MD at [facility] Other - see comments Right: Shoulder [employer] 04/06/2021 AR-2324B CM / N/A / [id number] [employer] Ar-2324 Bcm Swivelock 4.75mm 24.5mm Self Punch Vent Shoulder [place] Suture - Sn/A - [id number] Implanted:Qty: 1 on 07/07/2019 by Jose Luis Newell MD at [facility] Other - see comments Right: Shoulder [employer] 04/06/2021 AR-2324B CM / N/A / [id number] [employer] Ar-2290 Fiberloop 3.2mm Drill Pin Needle Shoehorn Cannula Kit Suture - Sn/A - [id number] Implanted:Qty: 1 on 07/07/2019 by Jose Luis Newell MD at [facility] Other - see comments Right: Shoulder [employer] [id number] 12/06/2023 AR-2290 / N/A / [id number] Insurance [facility] [employer] CHOICE MEDICARE PPO MEDICARE Care Teams Bridge Opener Relationship Specialty Start Date End Date Sanjay Guerrero MD PCP - General Family Practice 12/16/20
--- OUTSIDE RECORDS SUMMARY | 2025-02-10 07:31 | XMS_ITS | Clinical Summary ---
Author Organization [facility] Address [address] [place] [address] Care Team Providers Care Cutter Machine Name Role Phone Sanjay Guerrero MD Primary [...] 0.4 mg by mouth nightly 9 Active vmteevgt-byo-wmb ic-vit K-lycop 400-20-370 mcg tabletIndication s:supplement Take [...] 1 capsule by mouth every morning Active muwedcvn-bolxk-j yalu-CF borate 750 mg-100 mg- 1.65 mg-108 [...] 03/03/2021 Assessment & Plan (08/18/2021 4:24 PM STACKER STRAIGHTENER): Stable exam and OCT. Observe. - Likely [...] 02/19/2020 Assessment & Plan (08/18/2021 4:22 PM STACKER STRAIGHTENER): Stable exam and imaging. Continue to observe. [...] time. Assessment & Plan (12/16/2020 2:19 PM STACKER STRAIGHTENER): Has remained stable over the last 8 [...] 02/19/2020 Assessment & Plan (12/16/2020 2:17 PM STACKER STRAIGHTENER): The lesion in the right eye appears [...] (07/02/2019): Added automatically from request for surgery [id number] Surgical History Surgery Date Site/Laterality Comments TONSILLECTOMY [...] on file Legal Sex Male 3:43 AM STACKER STRAIGHTENER Gender Identity Not on file Sexual Orientation Not on file Obstetrics History Last Filed Vital Signs Vital Sign Reading Time Taken Comments Blood Pressure 129/79 07/07/2019 4:10 PM CDT Pulse 60 07/07/2019 4:35 PM CDT Temperature 36 C (96.8 F) 07/07/2019 2:40 PM CDT Respiratory Rate 18 09/15/2022 1:03 PM STACKER STRAIGHTENER Oxygen Saturation 93% 07/07/2019 4:35 PM CDT Inhaled Oxygen Concentration - - Weight 90.7 kg (200 lb) 09/15/2022 1:03 PM STACKER STRAIGHTENER Height 177.8 cm (5' 10 ) 09/15/2022 1:03 PM STACKER STRAIGHTENER Body Mass Index 28.7 09/15/2022 1:03 PM STACKER STRAIGHTENER Plan of Treatment Health Maintenance Due Date [...] 09/13/2017, 04/2016 Medical Devices Implanted Type Area Flight Radio Operator Device Identifier Shelf Expiration Date Model / Serial / Lot [employer] Ar-1927bct Corkscrew Suturetape 5.5mm 14.7mm Bioabsorbable Full Thread 1.3mm - Sn/A - [id number] Implanted:Qty: 1 on 07/07/2019 by Jose Luis Newell MD at [facility] Other - see comments Right: Shoulder [employer] [id number] 02/04/2021 AR-19[address]B CT / N/A / [id number] [employer] Ar-1927bct Corkscrew Suturetape 5.5mm 14.7mm Bioabsorbable Full Thread 1.3mm - Sn/A - [id number] Implanted:Qty: 1 on 07/07/2019 by Jose Luis Newell MD at [facility] Other - see comments Right: Shoulder [employer] [id number] 04/06/2021 AR-[address] / N/A / [id number] [employer] Ar-1927bct Corkscrew Suturetape 5.5mm 14.7mm Bioabsorbable Full Thread 1.3mm - Sn/A - [id number] Implanted:Qty: 1 on 07/07/2019 by Jose Luis Newell MD at [facility] Other - see comments Right: Shoulder [employer] [id number] 01/05/2021 AR-[address] / N/A / [id number] [employer] Ar-2324 Bcm Swivelock 4.75mm 24.5mm Self Punch Vent Shoulder [place] Suture - Sn/A - [id number] Implanted:Qty: 1 on 07/07/2019 by Jose Luis Newell MD at [facility] Other - see comments Right: Shoulder [employer] 04/06/2021 AR-2324B CM / N/A / [id number] [employer] Ar-2324 Bcm Swivelock 4.75mm 24.5mm Self Punch Vent Shoulder Follansbee Suture - Sn/A - [id number] Implanted:Qty: 1 on 07/07/2019 by Jose Luis Newell MD at [facility] Other - see comments Right: Shoulder [employer] 04/06/2021 AR-2324B CM / N/A / [id number] [employer] Ar-2290 Fiberloop 3.2mm Drill Pin Needle Shoehorn Cannula Kit Suture - Sn/A - [id number] Implanted:Qty: 1 on 07/07/2019 by Jose Luis Newell MD at [facility] Other - see comments Right: Shoulder [employer] [id number] 12/06/2023 AR-2290 / N/A / [id number] Insurance [facility] HUMANA CHOICE MEDICARE PPO MEDICARE Care Teams Cutter Machine Relationship Specialty Start Date End Date Sanjay Guerrero MD PCP - General Family Practice 12/16/20
--- OUTSIDE RECORDS SUMMARY | 2025-02-10 07:31 | XMS_ITS | Clinical Summary ---
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
--- OUTSIDE RECORDS SUMMARY | 2025-02-10 07:31 | XMS_ITS | Data Portability ---
Author Organization [place] [facility], Main Office Address [address] [place] [address] Care Team Providers Care Chief Ophthalmic Technician Name Role Phone ZULEIKA KWAN Primary Care Provider [phone] ZULEIKA KWAN Referring Provider JOSE SCOTT Respiratory Therapist Assistant Assessment Encounter Date Assessment Date Assessment LastModified [...] strength testing his mild weakness external rotation daof-qq-rjnfgrfp weakness thumbs down abduction. The will continue [...] mild weakness with external rotation is still zwdv-nb-acgelkmw weakness with abduction. Impression: Patient is now [...] patient more than half of this in qyms-fm-uyzt conversation loni Not available 06/04/2023 17:53:37 Plan [...] Recorded Time Pain of left shoulder joint 8469786273576 9109 Active 2022 BRIAN Barajas, [place] [facility] [place] [employer] [facility] 3 09:31:56 Rupture of rotator cuff of left shoulder 3032110095709 9102 Active 2022 Madeline Browne, [employer]ICE ST[employer] CASHIER null, [place] [facility] [place] [employer] [facility] 3 15:54:41 Pain of right shoulder joint 0341456593364 9100 Active [address] [facility] 3 04:49:09 Localized, primary osteoarthr itis of the pelvic region and thigh 454723052 Active Not Available [facility] 3 04:49:09 Partial thickness rotator cuff tear 115251738 Active Not Available [facility] 3 04:49:09 Osteoarthr itis 035356951 Active Not Available [facility] 3 04:49:09 Problem Notes None recorded. Procedures Surgical History Date Name Laterality Status Provider Name and Address Organization Details Recorded Time 0 procedure on elbow completed Not Available [facility] 12/06/2022 04:41:54 0 Back completed Not Available [facility] 3 04:41:54 9 Rotator cuff surgery completed Not Available [facility] 12/06/2022 04:41:54 Imaging Results Imaging Date Name [...] administe red by the provider 02/23 completed [facility] [phone] Not Available Not Available Not [...] Available Not Available Not Available Fluzone High-Dose 2589-0324 (PF) 180 mcg/0.5 mL intramuscul ar syringe [...] Updated DateTime 03/12/2023 175.26 cm Pili Flores, [facility] - [place] [facility] 03/12/2023 13:54:11 Date Recorded Body height Provider Name an d Address Organization Details Last Updated DateTime 03/26/2023 175.26 cm Pili Flores, [facility] [place] [facility] 03/26/2023 13:54:22 Date Recorded Body height Provider Name an d Address Organization Details Last Updated DateTime 04/09/2023 175.26 cm Pili Flores, [facility] [place] [employer] [facility] 04/09/2023 16:41:37 Date Recorded Body height Provider Name an d Address Organization Details Last Updated DateTime 05/07/2023 175.26 cm Pili Flores, [facility] [place] [employer] [facility] 05/07/2023 17:01:19 Date Recorded Body height Provider Name an d Address Organization Details Last Updated DateTime 06/04/2023 175.26 cm Britney Grier, [facility] 06/04/2023 17:15:09 Social History Question Answer Notes LastModified by Organizat ion Details LastModified Time Tobacco Smoking Status Never Smoker Not Available [facility] 12/06/2022 04:06:49 What Was The Date Of Your Most Recent Tobacco Screening? 01/24/2021 [id number] Information not available 12/06/2022 Sex: Unknown Functional Status None recorded. Mental Status None recorded. Family History Relationship Description Onset Age of this Age Resolved Age Notes LastModified by Organization Details LastModified Time Unspecified Relation Diabetes mellitus [id number] Not available 12/06/2022 04:41:54 Unspecified Relation Hypertensive disorder [id number] Not available 12/06/2022 04:41:55 Unspecified Relation Heart disease [id number] Not available 12/06/2022 04:41:55 Unspecified Relation Family history of stroke [email or web address] Not available 06/04 17:13:00 Unspecified Relation Family history of malignant neoplasm [id number] Not available 06/04 17:13:00 Notes:EMPHYSEMA (MOTHER) Medical History Condition Response ARTHRITIS Y HYPERTENSION Y Past Encounters Encounter ID Performer Location Encounter Start Date Encounter Closed Date Diagnosis/Indication Diagnosis SNOMED-CT Code Diagnosis ICD10 Code Diagnosis Note [id number] Shashank Cason MD [facility] [place] [address] [place] [address] 01/24/2021 00:00:00 01/24/2021 15:04:06 [id number] Shashank Cason MD [facility] [place] [address] [place] [address] 02/25/2021 00:00:00 02/25/2021 11:34:30 [id number] MD [facility] [place] [address] [place] [address] 03/14/2021 00:00:00 03/14/2021 18:40:33 [id number] MD ANDRE [facility] [place] [address] [place] [address] 03/28/2021 00:00:00 03/28/2021 15:29:58 [id number] MD ANDRE [facility] [place] [address] [place] [address] 05/25/2021 00:00:00 05/25/2021 12:27:32 [id number] Shashank Cason MD [facility] [place] [address] [place] [address] 02/15/2022 00:00:00 02/15/2022 09:44:13 [id number] MD PORTILLO [facility] [place] [address] [place] [address] 02/22/2022 00:00:00 02/22/2022 08:51:39 [id number] Shashank Cason MD [facility] [place] [address] [place] [address] 11/17/2022 00:00:00 11/19/2022 17:59:56 [id number] Shashank Cason MD [facility] [place] [address] [place] [address] 01/12/2023 09:04:23 01/15/2023 10:15:17 Pain of left shoulder joint 4562184493 9660099 M25.512 [id number] Shashank Cason MD [facility] [place] [address] [place] [address] 02/21/2023 13:50:03 02/22/2023 11:37:23 Partial thickness rotator cuff tear 828596579 M75.102 [id number] Shashank Cason MD [facility] [place] [address] [place] [address] 02/23/2023 10:39:12 02/23/2023 12:11:24 Partial thickness rotator cuff tear 248730594 M75.102 [id number] Shashank Cason MD [facility] [place] [address] [place] [address] 03/12/2023 13:51:01 03/12/2023 14:45:27 Partial thickness rotator cuff tear 995638514 M75.102 [id number] Shashank Cason MD [facility] [place] [address] [place] [address] 03/26/2023 13:52:19 03/26/2023 14:40:35 Partial thickness rotator cuff tear 550597980 M75.102 [id number] Shashank Cason MD [facility] [place] [address] [place] [address] 04/09/2023 16:31:34 04/11/2023 14:09:19 Postoperative visit [id number] Shashank Cason MD [facility] [place] [address] [place] [address] 05/07/2023 16:54:42 05/09/2023 14:02:16 Partial thickness rotator cuff tear 580060668 M75.120 [id number] Shashank Cason MD [facility] [place] [address] [place] [address] 06/04/2023 17:10:17 06/04/2023 17:55:43 Pain of left shoulder joint 3353242756 [id number] M25.512 Health Concerns Section Related Observation LastModified by Organization Detai ls LastModified Time None Recorded Concern Status LastModified by Organization Details LastModified Time None Recorded Advance Directives Directive None Recorded Payers Encounter Date Sequence Insurance Name Policy Number Policy Nguyen Covered Member ID Nguyen Member ID Guarantor Name 03/12/2023 1 [employer] (MEDICARE REPLACEMENT HMO) [id number] [employer] Nicolás [id number] Ren Nicolás 03/26/2023 1 [employer] (MEDICARE REPLACEMENT HMO) [id number] Ren W Nicolás [id number] Ren Nicolás 04/09/2023 1 [employer] (MEDICARE REPLACEMENT HMO) [id number] [employer] Nicolás [id number] Ren Nicolás 05/07/2023 1 [employer] (MEDICARE REPLACEMENT HMO) [id number] [employer] Nicolás [id number] Ren Nicolás 06/04/2023 1 [employer] (MEDICARE REPLACEMENT HMO) [id number] [employer] Nicolás [id number] Ren Nicolás
--- OUTSIDE RECORDS SUMMARY | 2025-02-10 07:32 | XMS_ITS | Encounter Summary ---
Author Organization [facility] Address [address] [place] [address] Care Team Providers Care Gum Machine Filler Name Role Phone Ross Pineda MD Primary Care Provider [phone] Sanjay Guerrero MD Primary Care Provider Encounter Details Date Type Department Care Team (Late st Contact Info) Description 02/27/2020 Lab Requisition [facility] [address] [place] [address] Social History Tobacco Use Types Packs/Day Years Used Date Smoking Tobacco: Never Assessed Sex and Gender Information Value Date Recorded Sex Assigned at Not on file Legal Sex Male 4:47 AM CRTS Gender Identity Not on file Sexual Orientation [...] Not detected, Invalid 02/28/2020 12:53 AM CDT [facility] Microbiology SPECIMEN FROM NASOPHARYNGEAL STRUCTURE / Unknown Collection / Unknown 02/27/2020 8:00 AM CDT 02/27/2020 4:35 PM CDT Narrative [facility] - 02/28/2020 12:53 AM CDT This Real Time RT-PCR assay was developed and its performance characteristics determined by [facility]. This test has been authorized [...] LAB - MICROBIOLOGY ORDERABLES Fi nal Result [facility] [address] [place], [place] [id number] [place] [address] documented in this encounter Visit Diagnoses Not on filedocumented in this encounter Additional Health Concerns Infection Onset Date Last Indicated Resolved Time COVID-19 Under Investigation 02/27/2020 02/27/2020 02/28/2020 12:53 AM CDT documented as of this encounter Care Teams Gum Machine Filler Relationship Specialty Start Date End Date Ross Pineda MD [address] [place] [address] PCP - General 11/14/21 02/21/22 Sanjay Guerrero MD [address] [place] [address] PCP - General 02/22/22 documented as of this encounter
--- OUTSIDE RECORDS SUMMARY | 2025-02-10 07:32 | XMS_ITS | Clinical Summary ---
Author Organization [facility] Address [address] [facility] [place] [address] Care Team Providers Care Elementary Spanish Teacher Name Role Phone Sanjay Guerrero MD Primary Care Provider Source Comments [facility],non-owned Affiliates and Associated Physician Practices is amultiple site organization consisting of ambulatory clinics and hospital sitesin [place], [place], [place] and [place]. This disclosure is being madepursuant to the Care Everywhere program and may not contain all information available regarding this patient. 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
[2025-02-10 07:57] LABS: Basophils Absolute Auto 0.1 K/mm3 (0.0-0.1); Basophils Percent Auto 0.7 % (0.2-1.2); Eosinophils Absolute Auto 0.2 K/mm3 (0-0.3); Eosinophils Percent Auto 2.1 % (0-4.4); Hematocrit 46.2 % (42.0-52.0); Hemoglobin 14.8 g/dL (14.0-18.0); Immature Granulocyte Absolute 0.02 K/mm3 (0.00-0.031); Immature Granulocyte Percent A 0.3 % (0-0.5); Lymphocytes Absolute Auto 1.28 K/mm3 (0.9-3.2); Mean Corpuscular Hemoglobin 31.5 pg (26-34); Mean Corpuscular Volume 98.3 fl (80-100); Mean Platelet Volume 10.7 fl (7.4-10.4); Monocytes Absolute Auto 0.7 K/mm3 (0.1-0.6); Monocytes Percent Auto 9.1 % (2.6-8.5); Neutrophils Percent Auto 69.8 % (45.5-73.1); Platelet Count Result 202 k/mm3 (150-375); White Blood Count 7.1 K/mm3 (4.5-10.0)
[2025-02-10 08:10] LABS: Alanine Aminotransferase 35 U/L (6-50); Albumin Level 3.9 g/dL (3.5-5.1); Alkaline Phosphatase 120 U/L (38-126); Anion Gap 7 mmol/L (4-12); Aspartate Amino Transferase 26 U/L (17-59); Bilirubin,Total 0.5 mg/dL (0.2-1.3); Blood Urea Nitrogen 20 mg/dL (9-20); Calcium 8.7 mg/dL (8.4-10.2); Carbon Dioxide 26 mmol/L (22-30); Chloride 105 mmol/L (98-107); Cholesterol 125 mg/dL (0-200); Estimated Glomerular Filt Rate > 60; Glucose 132 mg/dL (65-110); HDL Direct 38 mg/dL; Magnesium 2.2 mg/dL (1.6-2.3); Potassium 4.1 mmol/L (3.4-5.0); Sodium 138 mmol/L (137-145); Triglycerides 160 mg/dL (<150)
[2025-02-10 08:21] LABS: LDL Cholesterol Direct 50 mg/dL
[2025-02-10 09:15] LABS: Folic Acid 19.3 ng/mL (2.76->20)
[2025-02-10 09:30] LABS: Hemoglobin A1C 6.2 % (<5.7)
== END 2025-02-10 07:21 | disposition home or self-care (01) ==
PROVIDERS: PCP Family Medicine; Visit Provider Nurse Practitioner Adult Health
DX: E83.42 Hypomagnesemia (principal); I10 Essential (primary) hypertension; E78.5 Hyperlipidemia, unspecified; E11.9 Type 2 diabetes mellitus without complications
CPT/HCPCS: 36415; 80053; 80061; 82607; 82746; 83036; 83735; 84443; 85025

== ENCOUNTER 2025-02-16 07:27 | Outpatient (CLI) | payer OTHER, SELFPAY ==
--- OUTSIDE RECORDS SUMMARY | 2025-02-16 07:31 | XMS_ITS | Referral Summary ---
Author Organization [facility] Address [address] [place] [address] Care Team Providers Care Technology Internship Name Role Phone Sanjay Guerrero MD Primary [...] 0.4 mg by mouth nightly 9 Active jurfvnhf-fxs-rfx ic-vit K-lycop 400-20-370 mcg tabletIndication s:supplement Take [...] 1 capsule by mouth every morning Active qwhruyqm-mkywn-f yalu-CF borate 750 mg-100 mg- 1.65 mg-108 [...] 03/03/2021 Assessment & Plan (08/18/2021 4:24 PM FLIGHT SIMULATOR TEACHER): Stable exam and OCT. Observe. - Likely [...] 02/19/2020 Assessment & Plan (08/18/2021 4:22 PM FLIGHT SIMULATOR TEACHER): Stable exam and imaging. Continue to observe. [...] time. Assessment & Plan (12/16/2020 2:19 PM FLIGHT SIMULATOR TEACHER): Has remained stable over the last 8 [...] 02/19/2020 Assessment & Plan (12/16/2020 2:17 PM FLIGHT SIMULATOR TEACHER): The lesion in the right eye appears [...] (07/02/2019): Added automatically from request for surgery [id number] Social History Tobacco Use Types Packs/Day Years [...] on file Legal Sex Male 3:43 AM FLIGHT SIMULATOR TEACHER Gender Identity Not on file Sexual Orientation Not on file Last Filed Vital Signs Vital Sign Reading Time Taken Comments Blood Pressure 129/79 07/07/2019 4:10 PM CDT Pulse 60 07/07/2019 4:35 PM CDT Temperature 36 C (96.8 F) 07/07/2019 2:40 PM CDT Respiratory Rate 18 09/15/2022 1:03 PM FLIGHT SIMULATOR TEACHER Oxygen Saturation 93% 07/07/2019 4:35 PM CDT Inhaled Oxygen Concentration - - Weight 90.7 kg (200 lb) 09/15/2022 1:03 PM FLIGHT SIMULATOR TEACHER Height 177.8 cm (5' 10 ) 09/15/2022 1:03 PM FLIGHT SIMULATOR TEACHER Body Mass Index 28.7 09/15/2022 1:03 PM FLIGHT SIMULATOR TEACHER Plan of Treatment Not on file Medical Devices Implanted Type Area Solar Energy Sales Specialist Device Identifier Shelf Expiration Date Model / Serial / Lot [employer] Ar-1927bct Corkscrew Suturetape 5.5mm 14.7mm Bioabsorbable Full Thread 1.3mm - Sn/A - [id number] Implanted:Qty: 1 on 07/07/2019 by Jose Luis Newell MD at [facility] Other - see comments Right: Shoulder [employer] [id number] 02/04/2021 AR-1927B CT / N/A / [id number] [employer] Ar-1927bct Corkscrew Suturetape 5.5mm 14.7mm Bioabsorbable Full Thread 1.3mm - Sn/A - [id number] Implanted:Qty: 1 on 07/07/2019 by Jose Luis Newell MD at [facility] Other - see comments Right: Shoulder [employer] [id number] 04/06/2021 AR-1927B CT / N/A / [id number] [employer] Ar-1927bct Corkscrew Suturetape 5.5mm 14.7mm Bioabsorbable Full Thread 1.3mm - Sn/A - [id number] Implanted:Qty: 1 on 07/07/2019 by Jose Luis Newell MD at [facility] Other - see comments Right: Shoulder [employer] [id number] 01/05/2021 AR-1927B CT / N/A / [id number] [employer] Ar-2324 Bcm Swivelock 4.75mm 24.5mm Self Punch Vent Shoulder [place] Suture - Sn/A - [id number] Implanted:Qty: 1 on 07/07/2019 by Jose Luis Newell MD at [facility] Other - see comments Right: Shoulder [employer] 04/06/2021 AR-2324B CM / N/A / [id number] [employer] Ar-2324 Bcm Swivelock 4.75mm 24.5mm Self Punch Vent Shoulder [place] Suture - Sn/A - [id number] Implanted:Qty: 1 on 07/07/2019 by Jose Luis Newell MD at [facility] Other - see comments Right: Shoulder [employer] 04/06/2021 AR-2324B CM / N/A / [id number] [employer] Ar-2290 Fiberloop 3.2mm Drill Pin Needle Shoehorn Cannula Kit Suture - Sn/A - [id number] Implanted:Qty: 1 on 07/07/2019 by Jose Luis Newell MD at [facility] Other - see comments Right: Shoulder [employer] [id number] 12/06/2023 AR-2290 / N/A / [id number] Insurance [facility] [employer] CHOICE MEDICARE PPO MEDICARE Care Teams Technology Internship Relationship Specialty Start Date End Date Sanjay Guerrero MD PCP - General Family Practice 12/16/20
--- OUTSIDE RECORDS SUMMARY | 2025-02-16 07:31 | XMS_ITS | Clinical Summary ---
Author Organization [facility] Address [address] [place] [address] Care Team Providers Care Grout Worker Name Role Phone Sanjay Guerrero MD Primary [...] 0.4 mg by mouth nightly 9 Active pwfzjtgx-lot-edn ic-vit K-lycop 400-20-370 mcg tabletIndication s:supplement Take [...] 1 capsule by mouth every morning Active zjnlgzme-nzeqe-h yalu-CF borate 750 mg-100 mg- 1.65 mg-108 [...] 03/03/2021 Assessment & Plan (08/18/2021 4:24 PM AIRCRAFT SYSTEMS REPAIRER): Stable exam and OCT. Observe. - Likely [...] 02/19/2020 Assessment & Plan (08/18/2021 4:22 PM AIRCRAFT SYSTEMS REPAIRER): Stable exam and imaging. Continue to observe. [...] time. Assessment & Plan (12/16/2020 2:19 PM AIRCRAFT SYSTEMS REPAIRER): Has remained stable over the last 8 [...] 02/19/2020 Assessment & Plan (12/16/2020 2:17 PM AIRCRAFT SYSTEMS REPAIRER): The lesion in the right eye appears [...] (07/02/2019): Added automatically from request for surgery [id number] Surgical History Surgery Date Site/Laterality Comments TONSILLECTOMY [...] on file Legal Sex Male 3:43 AM AIRCRAFT SYSTEMS REPAIRER Gender Identity Not on file Sexual Orientation Not on file Obstetrics History Last Filed Vital Signs Vital Sign Reading Time Taken Comments Blood Pressure 129/79 07/07/2019 4:10 PM CDT Pulse 60 07/07/2019 4:35 PM CDT Temperature 36 C (96.8 F) 07/07/2019 2:40 PM CDT Respiratory Rate 18 09/15/2022 1:03 PM AIRCRAFT SYSTEMS REPAIRER Oxygen Saturation 93% 07/07/2019 4:35 PM CDT Inhaled Oxygen Concentration - - Weight 90.7 kg (200 lb) 09/15/2022 1:03 PM AIRCRAFT SYSTEMS REPAIRER Height 177.8 cm (5' 10 ) 09/15/2022 1:03 PM AIRCRAFT SYSTEMS REPAIRER Body Mass Index 28.7 09/15/2022 1:03 PM AIRCRAFT SYSTEMS REPAIRER Plan of Treatment Health Maintenance Due Date Last Done Comments Depression Screening 1946 Fall Risk Assessment 1945 Hepatitis C Screening 1946 Hepatitis B Screening 1964 Zoster Vaccine (1 of 2) 1996 Abdominal Aortic Aneurysm (A AA) Screen 2011 Well Visit 65+ 2011 Covid-19 Vaccine ( season) 2024, 12/06/2020 Influenza Vaccine (Season Ended) 2025 09/10/2019, 08/16/2018, 09/22/2015 DTaP/Tdap/Td Vaccine (3 - Td or Tdap) 10/14/202504/2016, 04/17/2006 Pneumococcal vaccine 65+ Completed 09/13/2017, 04/2016 Medical Devices Implanted Type Area Fur Cutting Machine Operator Device Identifier Shelf Expiration Date Model / Serial / Lot [employer] Ar-1927bct Corkscrew Suturetape 5.5mm 14.7mm Bioabsorbable Full Thread 1.3mm - Sn/A - [id number] Implanted:Qty: 1 on 07/07/2019 by Jose Luis Newell MD at [facility] Other - see comments Right: Shoulder [employer] [id number] 02/04/2021 AR-1927B CT / N/A / [id number] [employer] Ar-1927bct Corkscrew Suturetape 5.5mm 14.7mm Bioabsorbable Full Thread 1.3mm - Sn/A - [id number] Implanted:Qty: 1 on 07/07/2019 by Jose Luis Newell MD at [facility] Other - see comments Right: Shoulder [employer] [id number] 04/06/2021 AR-1927B CT / N/A / [id number] [employer] Ar-1927bct Corkscrew Suturetape 5.5mm 14.7mm Bioabsorbable Full Thread 1.3mm - Sn/A - [id number] Implanted:Qty: 1 on 07/07/2019 by Jose Luis Newell MD at [facility] Other - see comments Right: Shoulder [employer] [id number] 01/05/2021 AR-[address]B [address] / N/A / [id number] [employer] Ar-2324 Bcm Swivelock 4.75mm 24.5mm Self Punch Vent Shoulder Lincoln Suture - Sn/A - [id number] Implanted:Qty: 1 on 07/07/2019 by Jose Luis Newell MD at [facility] Other - see comments Right: Shoulder [employer] 04/06/2021 AR-2324B CM / N/A / [id number] [employer] Ar-2324 Bcm Swivelock 4.75mm 24.5mm Self Punch Vent Shoulder Lincoln Suture - Sn/A - [id number] Implanted:Qty: 1 on 07/07/2019 by Jose Luis Newell MD at [facility] Other - see comments Right: Shoulder [employer] 04/06/2021 AR-2324B CM / N/A / [id number] [employer] Ar-2290 Fiberloop 3.2mm Drill Pin Needle Shoehorn Cannula Kit Suture - Sn/A - [id number] Implanted:Qty: 1 on 07/07/2019 by Jose Luis Newell MD at [facility] Other - see comments Right: Shoulder [employer] [id number] 12/06/2023 AR-2290 / N/A / [id number] Insurance [facility] HUMANA CHOICE MEDICARE PPO MEDICARE Care Teams Grout Worker Relationship Specialty Start Date End Date Sanjay Guerrero MD PCP - General Family Practice 12/16/20
--- OUTSIDE RECORDS SUMMARY | 2025-02-16 07:31 | XMS_ITS | Clinical Summary ---
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
--- OUTSIDE RECORDS SUMMARY | 2025-02-16 07:31 | XMS_ITS | Data Portability ---
Author Organization [place] [facility], Main Office Address [address] [place] [address] Care Team Providers Care Customer Sales Service Manager Name Role Phone ZULEIKA KWAN Primary Care Provider [phone] ZULEIKA KWAN Referring Provider JOSE SCOTT Leather Cleaner Assessment Encounter Date Assessment Date Assessment LastModified [...] strength testing his mild weakness external rotation bivd-ba-rqnmquaz weakness thumbs down abduction. The will continue [...] mild weakness with external rotation is still fuap-ea-uissqjlq weakness with abduction. Impression: Patient is now [...] patient more than half of this in atza-uf-ljdn conversation loni Not available 06/04/2023 17:53:37 Plan [...] Recorded Time Pain of left shoulder joint 5900972770884 9109 Active 2022 BRIAN Barajas, [place] [facility] [place] [employer] [facility] 3 09:31:56 Rupture of rotator cuff of left shoulder 1886296430872 9102 Active 2022 Madeline Browne, [employer] ARCHITECT null, [place] [facility] [employer] [facility] 3 15:54:41 Pain of right shoulder joint 4250191430571 9100 Active 2022 Not Available [facility] 3 04:49:09 Localized, primary osteoarthr itis of the pelvic region and thigh 583024470 Active Not Available [facility] 3 04:49:09 Partial thickness rotator cuff tear 417967211 Active Not Available [facility] 3 04:49:09 Osteoarthr itis 751064967 Active Not Available [facility] 3 04:49:09 Problem Notes None recorded. Procedures Surgical History Date Name Laterality Status Provider Name and Address Organization Details Recorded Time 0 procedure on elbow completed Not Available [facility] 12/06/2022 04:41:54 0 Back completed Not Available [facility] 3 04:41:54 9 Rotator cuff surgery completed Not Available [facility] 12/06/2022 04:41:54 Imaging Results Imaging Date Name [...] administe red by the provider 02/23 completed [facility] [phone] Not Available Not Available Not [...] Available Not Available Not Available Fluzone High-Dose [id number] (PF) 180 mcg/0.5 mL intramuscul ar syringe [...] Updated DateTime 03/12/2023 175.26 cm Pili Flores, [facility] [place] [facility] 03/12/2023 13:54:11 Date Recorded Body height Provider Name an d Address Organization Details Last Updated DateTime 03/26/2023 175.26 cm Pili Flores, [facility] [place] [facility] [place] [facility] 03/26/2023 13:54:22 Date Recorded Body height Provider Name an d Address Organization Details Last Updated DateTime 04/09/2023 175.26 cm Pili Flores, [facility] [place] [employer] [facility] 04/09/2023 16:41:37 Date Recorded Body height Provider Name an d Address Organization Details Last Updated DateTime 05/07/2023 175.26 cm Pili Flores, [facility] [place] [employer] [facility] 05/07/2023 17:01:19 Date Recorded Body height Provider Name an d Address Organization Details Last Updated DateTime 06/04/2023 175.26 cm Britney Grier, [facility] 06/04/2023 17:15:09 Social History Question Answer Notes LastModified by Organizat ion Details LastModified Time Tobacco Smoking Status Never Smoker Not Available [facility] 12/06/2022 04:06:49 What Was The Date Of Your Most Recent Tobacco Screening? 01/24/2021 [id number] Information not available 12/06/2022 Sex: Unknown Functional Status None recorded. Mental Status None recorded. Family History Relationship Description Onset Age of this Age Resolved Age Notes LastModified by Organization Details LastModified Time Unspecified Relation Diabetes mellitus [id number] Not available 12/06/2022 04:41:54 Unspecified Relation Hypertensive disorder [id number] Not available 12/06/2022 04:41:55 Unspecified Relation Heart disease [id number].220 [id number] Not available 12/06/2022 04:41:55 Unspecified Relation Family history of stroke [id number] Not available 06/04 17:13:00 Unspecified Relation Family history of malignant neoplasm [id number] Not available 06/04 17:13:00 Notes:EMPHYSEMA (MOTHER) Medical History Condition Response ARTHRITIS Y HYPERTENSION Y Past Encounters Encounter ID Performer Location Encounter Start Date Encounter Closed Date Diagnosis/Indication Diagnosis SNOMED-CT Code Diagnosis ICD10 Code Diagnosis Note [id number] Shashank Cason MD [facility] [place] [address] [place] [address] 01/24/2021 00:00:00 01/24/2021 15:04:06 [id number] Shashank Cason MD [facility] [place] [address] [place] [address] 02/25/2021 00:00:00 02/25/2021 11:34:30 [id number] MD [facility] [place] [address] [place] [address] 03/14/2021 00:00:00 03/14/2021 18:40:33 [id number] MD ANDRE [facility] [place] [address] [place] [address] 03/28/2021 00:00:00 03/28/2021 15:29:58 [id number] MD ANDRE [facility] [place] [address] [place] [address] 05/25/2021 00:00:00 05/25/2021 12:27:32 [id number] Shashank Cason MD [facility] [place] [address] [place] [address] 02/15/2022 00:00:00 02/15/2022 09:44:13 [id number] MD [facility] [place] [address] [place] [address] 02/22/2022 00:00:00 02/22/2022 08:51:39 [id number] Shashank Cason MD [facility] [place] [address] [place] [address] 11/17/2022 00:00:00 11/19/2022 17:59:56 [id number] Shashank Cason MD [facility] [place] [address] [place] [address] 01/12/2023 09:04:23 01/15/2023 10:15:17 Pain of left shoulder joint 4693068516 [id number] M25.512 [id number] Shashank Cason MD [facility] [place] [address] [place] [address] 02/21/2023 13:50:03 02/22/2023 11:37:23 Partial thickness rotator cuff tear 583014558 M75.102 [id number] Shashank Cason MD [facility] [place] [address] [place] [address] 02/23/2023 10:39:12 02/23/2023 12:11:24 Partial thickness rotator cuff tear 067661907 M75.102 [id number] Shashank Cason MD [facility] [place] [address] [place] [address] 03/12/2023 13:51:01 03/12/2023 14:45:27 Partial thickness rotator cuff tear 286067558 M75.102 [id number] Shashank Cason MD [facility] [place] [address] [place] [address] 03/26/2023 13:52:19 03/26/2023 14:40:35 Partial thickness rotator cuff tear 022883668 M75.102 [id number] Shashank Cason MD [facility] [place] [address] [place] [address] 04/09/2023 16:31:34 04/11/2023 14:09:19 Postoperative visit 416121695 Z09 [id number] Shashank Cason MD [facility] [place] [address] [place] [address] 05/07/2023 16:54:42 05/09/2023 14:02:16 Partial thickness rotator cuff tear 345665333 M75.630 [id number] Shashank Cason MD [facility] [place] [address] [place] [address] 06/04/2023 17:10:17 06/04/2023 17:55:43 Pain of left shoulder joint 7460722292 9428890 M25.512 Health Concerns Section Related Observation LastModified by Organization Detai ls LastModified Time None Recorded Concern Status LastModified by Organization Details LastModified Time None Recorded Advance Directives Directive None Recorded Payers Encounter Date Sequence Insurance Name Policy Number Policy Nguyen Covered Member ID Nguyen Member ID Guarantor Name 03/12/2023 1 [employer] (MEDICARE REPLACEMENT HMO) [id number] Ren Voölks SA Nicolás [id number] Ren Nicolás 03/26/2023 1 [employer] (MEDICARE REPLACEMENT HMO) [id number] Ren W Nicolás [id number] Ren Nicolás 04/09/2023 1 [employer] (MEDICARE REPLACEMENT HMO) [id number] Ren Voölks SA Nicolás [id number] Ren Nicolás 05/07/2023 1 [employer] (MEDICARE REPLACEMENT HMO) [id number] Ren Voölks SA Nicolás [id number] Ren Nicolás 06/04/2023 1 [employer] (MEDICARE REPLACEMENT HMO) [id number] Ren Voölks SA Nicolás [id number] Ren Nicolás
--- OUTSIDE RECORDS SUMMARY | 2025-02-16 07:32 | XMS_ITS | Encounter Summary ---
Author Organization [facility] Address [address] [place] [address] Care Team Providers Care Rn Prior Authorization Name Role Phone Ross Pineda MD Primary Care Provider [phone] Sanjay Guerrero MD Primary Care Provider Encounter Details Date Type Department Care Team (Late st Contact Info) Description 02/27/2020 Lab Requisition [facility] [address] [place] [address] Social History Tobacco Use Types Packs/Day Years Used Date Smoking Tobacco: Never Assessed Sex and Gender Information Value Date Recorded Sex Assigned at Not on file Legal Sex Male 4:47 AM SR. MEDIA MANAGER Gender Identity Not on file Sexual Orientation [...] Not detected, Invalid 02/28/2020 12:53 AM CDT [facility] Microbiology SPECIMEN FROM NASOPHARYNGEAL STRUCTURE / Unknown Collection / Unknown 02/27/2020 8:00 AM CDT 02/27/2020 4:35 PM CDT Narrative [facility] - 02/28/2020 12:53 AM CDT This Real Time RT-PCR assay was developed and its performance characteristics determined by [facility]. This test has been authorized [...] LAB - MICROBIOLOGY ORDERABLES Fi nal Result [facility] [address] [place], [place] [id number] [place] [address] documented in this encounter Visit Diagnoses Not on filedocumented in this encounter Additional Health Concerns Infection Onset Date Last Indicated Resolved Time COVID-19 Under Investigation 02/27/2020 02/27/2020 02/28/2020 12:53 AM CDT documented as of this encounter Care Teams Rn Prior Authorization Relationship Specialty Start Date End Date Ross Pineda MD [address] [place] [address] PCP - General 11/14/21 02/21/22 Sanjay Guerrero MD [address] [place] [address] PCP - General 02/22/22 documented as of this encounter
--- OUTSIDE RECORDS SUMMARY | 2025-02-16 07:32 | XMS_ITS | Clinical Summary ---
Author Organization [facility] Address [address] [place] [address] Care Team Providers Care Drafter Civil Engineering Name Role Phone Sanjay Guerrero MD Primary Care Provider Source Comments [facility],non-owned Affiliates and Associated Physician Practices is amultiple site organization consisting of ambulatory clinics and hospital sitesin [place], [place], [place] and [place]. This disclosure is being madepursuant to the Care Everywhere program and may not contain all information available regarding this patient. Last updated 18.[facility] Social History Tobacco Use Types Packs/Day Years Used Date Smoking Tobacco: Never Assessed Sex and Gender Information Value Date Recorded Sex Assigned at Not on file Legal Sex Male 4:47 AM PRINT MANAGER Gender Identity Not on file Sexual [...] ID:Not on file (Home) Address: [address] [place] [address] Payer ID:Not on file Group ID:Not on file Type:Self Pay Address: [facility] MEDICARE Care Teams Drafter Civil Engineering Relationship Specialty Start Date End Date Sanjay Guerrero MD [address] [place] [address] PCP - General 02/22/22
[2025-02-16 08:11] LABS: Cholesterol 125 mg/dL (0-200); HDL Direct 37 mg/dL; Triglycerides 160 mg/dL (<150)
[2025-02-16 08:22] LABS: LDL Cholesterol Direct 53 mg/dL
[2025-02-16 09:19] LABS: Vitamin D 25 Hydroxy 63.6 ng/mL
== END 2025-02-16 07:28 | disposition home or self-care (01) ==
LOC: ANHLAB 07:29
PROVIDERS: PCP Family Medicine; Referring Provider Nurse Practitioner Family; Visit Provider Internal Medicine Cardiovascular Disease
DX: E55.9 Vitamin D deficiency, unspecified (principal); E78.5 Hyperlipidemia, unspecified
CPT/HCPCS: 36415; 80061; 82306

== ENCOUNTER 2025-04-01 09:06 | Outpatient (CLI) | payer OTHER, SELFPAY ==
[2025-04-01 09:47] LABS: CRP < 0.5 mg/dL (<1.0)
[2025-04-01 09:54] LABS: Erythrocyte Sedimentation Rate 3 mm/hr (0-20)
[2025-04-01 13:53] LABS: Color Synovial Fluid Other (Colorless); Crystals Synovial Fluid None Seen (None Seen); Source Synovial Fluid Lt Knee Syn Fluid
[2025-04-01 13:54] LABS: Appearance Synovial Fluid Cloudy (Clear); Lymphocytes Synovial Fluid 18 %; Macrophages Synovial Fluid 68 %; Neutrophils Synovial Fluid 14 % (0-25); Nucleated Cell Synovial Fluid 424 /uL (0-200); RBC Synovial Fluid 9000 /uL (0-0)
== END 2025-04-01 09:07 | disposition home or self-care (01) ==
PROVIDERS: PCP Family Medicine; Visit Provider Physician Assistant Surgical
DX: M25.562 Pain in left knee (principal)
CPT/HCPCS: 36415; 85652; 86140; 87070; 87075; 87205; 89051; 89060

== ENCOUNTER 2025-05-27 07:27 | Outpatient (CLI) | payer OTHER, SELFPAY ==
--- OUTSIDE RECORDS SUMMARY | 2025-05-27 07:31 | XMS_ITS | Clinical Summary ---
Author Organization [facility] Address [address] [place] [address] Care Team Providers Care Credit Processor Name Role Phone Sanjay Guerrero MD Primary [...] 0.4 mg by mouth nightly 9 Active biorszqy-iay-rjj ic-vit K-lycop 400-20-370 mcg tabletIndication s:supplement Take [...] 1 capsule by mouth every morning Active cicztbbg-duzzz-b yalu-CF borate 750 mg-100 mg- 1.65 mg-108 [...] 03/03/2021 Assessment & Plan (08/18/2021 4:24 PM COLLET MAKING MACHINE OPERATOR): Stable exam and OCT. Observe. - [...] 02/19/2020 Assessment & Plan (08/18/2021 4:22 PM COLLET MAKING MACHINE OPERATOR): Stable exam and imaging. Continue to [...] time. Assessment & Plan (12/16/2020 2:19 PM COLLET MAKING MACHINE OPERATOR): Has remained stable over the last [...] 02/19/2020 Assessment & Plan (12/16/2020 2:17 PM COLLET MAKING MACHINE OPERATOR): The lesion in the right eye [...] (07/02/2019): Added automatically from request for surgery [id number] Surgical History Surgery Date Site/Laterality Comments TONSILLECTOMY [...] on file Legal Sex Male 3:43 AM COLLET MAKING MACHINE OPERATOR Gender Identity Not on file Sexual Orientation Not on file Obstetrics History Last Filed Vital Signs Vital Sign Reading Time Taken Comments Blood Pressure 129/79 07/07/2019 4:10 PM CDT Pulse 60 07/07/2019 4:35 PM CDT Temperature 36 C (96.8 F) 07/07/2019 2:40 PM CDT Respiratory Rate 18 09/15/2022 1:03 PM COLLET MAKING MACHINE OPERATOR Oxygen Saturation 93% 07/07/2019 4:35 PM CDT Inhaled Oxygen Concentration - - Weight 90.7 kg (200 lb) 09/15/2022 1:03 PM COLLET MAKING MACHINE OPERATOR Height 177.8 cm (5' 10) 09/15/2022 1:03 PM COLLET MAKING MACHINE OPERATOR Body Mass Index 28.7 09/15/2022 1:03 PM COLLET MAKING MACHINE OPERATOR Plan of Treatment Health Maintenance Due Date Last Done Comments Depression Screening 1945 Fall Risk Assessment 1945 Hepatitis C Screening 1945 Hepatitis B Screening 1964 Zoster Vaccine (1 of 2) 1996 Abdominal Aortic Aneurysm (A AA) Screen 2011 Well Visit 65+ 2011 Covid-19 Vaccine ( season) 2024, 12/06/2020 Influenza Vaccine (#1) 2025 , 08/16/2018, 09/22/2015 DTaP/Tdap/Td Vaccine (3 - Td or Tdap) 10/14/202504/2016, 04/17/2006 Pneumococcal vaccine 65+ Completed 09/13/2017, 04/2016 Medical Devices Implanted Type Area Collections Representative Device Identifier Shelf Expiration Date Model / Serial / Lot [employer] Ar-1927bct Corkscrew Suturetape 5.5mm 14.7mm Bioabsorbable Full Thread 1.3mm - Sn/A - [id number] Implanted:Qty: 1 on 07/07/2019 by Jose Luis Newell MD at [facility] Other - see comments Right: Shoulder [employer] [id number] 02/04/2021 AR-1927B CT / N/A / [id number] [employer] Ar-1927bct Corkscrew Suturetape 5.5mm 14.7mm Bioabsorbable Full Thread 1.3mm - Sn/A - [id number] Implanted:Qty: 1 on 07/07/2019 by Jose Luis Newell MD at [facility] Other - see comments Right: Shoulder [employer] [id number] 04/06/2021 AR-1927B CT / N/A / [id number] [employer] Ar-1927bct Corkscrew Suturetape 5.5mm 14.7mm Bioabsorbable Full Thread 1.3mm - Sn/A - [id number] Implanted:Qty: 1 on 07/07/2019 by Jose Luis Newell MD at [facility] Other - see comments Right: Shoulder [employer] [id number] 01/05/2021 AR-1927B CT / N/A / [id number] [employer] Ar-2324 Bcm Swivelock 4.75mm 24.5mm Self Punch Vent Shoulder [place] Suture - Sn/A - [id number] Implanted:Qty: 1 on 07/07/2019 by Jose Luis Newell MD at [facility] Other - see comments Right: Shoulder [employer] 04/06/2021 AR-2324B CM / N/A / [id number] [employer] Ar-2324 Bcm Swivelock 4.75mm 24.5mm Self Punch Vent Shoulder [place] Suture - Sn/A - [id number] Implanted:Qty: 1 on 07/07/2019 by Jose Luis Newell MD at [facility] Other - see comments Right: Shoulder [employer] 04/06/2021 AR-2324B CM / N/A / [id number] [employer] Ar-2290 Fiberloop 3.2mm Drill Pin Needle Shoehorn Cannula Kit Suture - Sn/A - [id number] Implanted:Qty: 1 on 07/07/2019 by Jose Luis Newell MD at [facility] Other - see comments Right: Shoulder [employer] [id number] 12/06/2023 AR-2290 / N/A / [id number] Insurance [facility] HU[employer] CHOICE MEDICARE PPO MEDICARE Care Teams Credit Processor Relationship Specialty Start Date End Date Sanjay Guerrero MD PCP - General Family Practice 12/16/20
--- OUTSIDE RECORDS SUMMARY | 2025-05-27 07:32 | XMS_ITS | Encounter Summary ---
Author Organization [facility] Address [address] [place] [address] Care Team Providers Care Entry Level Java Developer Name Role Phone Ross Pineda MD Primary Care Provider [phone] Sanjay Guerrero MD Primary Care Provider Encounter Details Date Type Department Care Team (Late st Contact Info) Description 02/27/2020 Lab Requisition [facility] [address] [place] [address] Social History Tobacco Use Types Packs/Day Years Used Date Smoking Tobacco: Never Assessed Sex and Gender Information Value Date Recorded Sex Assigned at Not on file 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 Microbiology SPECIMEN FROM NASOPHARYNGEAL STRUCTURE / Unknown Collection / Unknown 02/27/2020 8:00 AM CDT 02/27/2020 4:[address] [facility] - 02/28/2020 12:53 AM CDT This Real Time RT-PCR assay was developed and its performance characteristics determined by [facility]. This test has been [...] LAB - MICROBIOLOGY ORDERABLES Fi nal Result [facility] [address] [place], [place] [id number] [place] [address] documented in this encounter Visit Diagnoses Not on filedocumented in this encounter Additional Health Concerns Infection Onset Date Last Indicated Resolved Time COVID-19 Under Investigation 02/27/2020 02/27/2020 02/28/2020 12:53 AM CDT documented as of this encounter Care Teams Entry Level Java Developer Relationship Specialty Start Date End Date Ross Pineda MD [address] [place] [address] PCP - General 11/14/21 02/21/22 Sanjay Guerrero MD [address] [place] [address] PCP - General 02/22/22 documented as of this encounter
--- OUTSIDE RECORDS SUMMARY | 2025-05-27 07:32 | XMS_ITS | Clinical Summary ---
Author Organization [facility] [employer] Address [address] [place] [address] Care Team Providers Care Casino Floorperson Name Role Phone Sanjay Guerrero MD Primary Care Provider Source Comments [facility] [employer],non-owned Affiliates and Associated Physician Practices is amultiple site organization consisting of ambulatory clinics and hospital sitesin [place], [place], [place] and [place]. This disclosure is being madepursuant to the Care Everywhere program and may not contain all information available regarding this patient. 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 Gender Identity Not on file Sexual Orientation [...] season) 2024 DEPRESSION SCREENING 10/08/2024 INFLUENZA VACCINE (#1) 2025 HEPATITIS B VACCINE Aged Out No [...] to complete this topic Insurance [employer] Care Address: [facility] [address] [place] [id number] E[employer]ENCE MEDICARE ADV PPO [employer] Care Address: [address] [place] [phone] SELF PAY NO INSURANCE Member Subscriber Plan / Payer (Ef fective for All Dates) Name:Ren Monzon Member ID:Not on file Relation to Subscriber:Not on file Name:REN MONZON Subscriber ID:Not on file (Home) Address: [address] [place] [address] Payer ID:Not on file Group ID:Not on file Type:Self Pay Address: [facility] MEDICARE Care Teams Casino Floorperson Relationship Specialty Start Date End Date Sanjay Guerrero MD [address] [place] [address] PCP - General 02/22/22
[2025-05-27 08:07] LABS: Cholesterol 114 mg/dL (0-200); HDL Direct 27 mg/dL; Triglycerides 135 mg/dL (<150)
== END 2025-05-27 07:28 | disposition home or self-care (01) ==
PROVIDERS: PCP Family Medicine; Visit Provider Nurse Practitioner Adult Health
DX: E78.1 Pure hyperglyceridemia (principal)
CPT/HCPCS: 36415; 80061

== ENCOUNTER 2025-07-01 13:44 | Outpatient (CLI) | payer OTHER, SELFPAY ==
--- OUTSIDE RECORDS SUMMARY | 2025-07-01 13:47 | XMS_ITS | Clinical Summary ---
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 Not on file Not [...] 1:15 PM CDT Height 180.3 cm (5' 11) 03/09/2021 1:15 PM CDT Body Mass Index 27.89 03/09/2021 1:15 PM CDT Plan of Treatment Health Maintenance Due Date Last Done Comments Hepatitis C Virus (HCV) Screening 1945 Zoster Immunization (1 of 2) 1996 Respiratory Syncytial Virus (RSV) Immunization (Adult) (1 - 1-dose 75+ series) 2021 Influenza Immunization (#1) 06/08/202507/10, 09/10/2019, 08/16/2018, Additional history exists SARS-COV-2 Immunization ( season) 2025 12/27/2020, 12/06/2020 Colonoscopy Discontinued 09/13/2015 Colorectal Cancer Screening Discontinued DTaP/Tdap/Td Immunization Discontinued 10/14/2015, 08/2006 Pneumococcal Immunization (50+ years) Completed 09/13/2017, 10/14/2015 Pneumococcal Immunization Combined Discontinued 09/13/2017, 10/14/2015 Cologuard Discontinued Hepatitis B Immunization Aged Out No longer eligible based on patient's age to complete this topic Human Papillomavirus (HPV) Immunization Aged Out No longer eligible based on patient's age to complete this topic Immunochemical Fecal Occult Blood Discontinued Meningococcal Immunization (ACWY) Aged Out No longer eligible based on patient's age to complete this topic Rotavirus Immunization Aged Out No lo nger eligible based on patient's age to complete this topic Insurance MEDICARE C [employer]ENCE Care Teams Air Intelligence Specialist Relationship Specialty Start Date End Date Ross Pineda MD [address] [place] [address] PCP - General Family Medicine 09/10/15
--- OUTSIDE RECORDS SUMMARY | 2025-07-01 13:47 | XMS_ITS | Clinical Summary ---
Author Organization [facility] Address [address] [place] [address] Care Team Providers Care Welcome Wagon Host/Hostess Name Role Phone Sanjay Guerrero MD Primary [...] 0.4 mg by mouth nightly 9 Active gfvsnvyu-lkz-doc ic-vit K-lycop 400-20-370 mcg tabletIndication s:supplement Take [...] 1 capsule by mouth every morning Active vpguosuf-ldava-c yalu-CF borate 750 mg-100 mg- 1.65 mg-108 [...] 03/03/2021 Assessment & Plan (08/18/2021 4:24 PM INSPECTOR ASSEMBLIES AND INSTALLATIONS): Stable exam and OCT. Observe. - Likely [...] 02/19/2020 Assessment & Plan (08/18/2021 4:22 PM INSPECTOR ASSEMBLIES AND INSTALLATIONS): Stable exam and imaging. Continue to observe. [...] time. Assessment & Plan (12/16/2020 2:19 PM INSPECTOR ASSEMBLIES AND INSTALLATIONS): Has remained stable over the last 8 [...] 02/19/2020 Assessment & Plan (12/16/2020 2:17 PM INSPECTOR ASSEMBLIES AND INSTALLATIONS): The lesion in the right eye appears [...] (07/02/2019): Added automatically from request for surgery [id number] Surgical History Surgery Date Site/Laterality Comments TONSILLECTOMY [...] on file Legal Sex Male 3:43 AM INSPECTOR ASSEMBLIES AND INSTALLATIONS Gender Identity Not on file Sexual Orientation Not on file Obstetrics History Last Filed Vital Signs Vital Sign Reading Time Taken Comments Blood Pressure 129/79 07/07/2019 4:10 PM CDT Pulse 60 07/07/2019 4:35 PM CDT Temperature 36 C (96.8 F) 07/07/2019 2:40 PM CDT Respiratory Rate 18 09/15/2022 1:03 PM INSPECTOR ASSEMBLIES AND INSTALLATIONS Oxygen Saturation 93% 07/07/2019 4:35 PM CDT Inhaled Oxygen Concentration - - Weight 90.7 kg (200 lb) 09/15/2022 1:03 PM INSPECTOR ASSEMBLIES AND INSTALLATIONS Height 177.8 cm (5' 10) 09/15/2022 1:03 PM INSPECTOR ASSEMBLIES AND INSTALLATIONS Body Mass Index 28.7 09/15/2022 1:03 PM INSPECTOR ASSEMBLIES AND INSTALLATIONS Plan of Treatment Health Maintenance Due Date Last Done Comments Depression Screening 1945 Fall Risk Assessment 1946 Hepatitis C Screening 1946 Hepatitis B Screening 1964 Zoster Vaccine (1 of 2) 1996 Abdominal Aortic Aneurysm (A AA) Screen 2011 Well Visit 65+ 2011 Covid-19 Vaccine (3 - season) 2025, 12/06/2020 Influenza Vaccine (#1) 2025 9, 08/16/2018, 09/22/2015 DTaP/Tdap/Td Vaccine (3 - Td or Tdap) 10/14/202504/2016, 04/17/2006 Pneumococcal vaccine 65+ Completed 09/13/2017, 04/2016 Medical Devices Implanted Type Area Certified Dialysis Technician Device Identifier Shelf Expiration Date Model / Serial / Lot [employer] Ar-1927bct Corkscrew Suturetape 5.5mm 14.7mm Bioabsorbable Full Thread 1.3mm - Sn/A - [id number] Implanted:Qty: 1 on 07/07/2019 by Jose Luis Newell MD at [facility] Other - see comments Right: Shoulder [employer] [id number] 02/04/2021 AR-1927B CT / N/A / [id number] [employer] Ar-1927bct Corkscrew Suturetape 5.5mm 14.7mm Bioabsorbable Full Thread 1.3mm - Sn/A - [id number] Implanted:Qty: 1 on 07/07/2019 by Jose Luis Newell MD at [facility] Other - see comments Right: Shoulder [employer] [id number] 04/06/2021 AR-1927B CT / N/A / [id number] [employer] Ar-1927bct Corkscrew Suturetape 5.5mm 14.7mm Bioabsorbable Full Thread 1.3mm - Sn/A - [id number] Implanted:Qty: 1 on 07/07/2019 by Jose Luis Newell MD at [facility] Other - see comments Right: Shoulder [employer] [id number] 01/05/2021 AR-1927B CT / N/A / [id number] [employer] Ar-2324 Bcm Swivelock 4.75mm 24.5mm Self Punch Vent Shoulder [place] Suture - Sn/A - [id number] Implanted:Qty: 1 on 07/07/2019 by Jose Luis Newell MD at [facility] Other - see comments Right: Shoulder [employer] 04/06/2021 AR-2324B CM / N/A / [id number] [employer] Ar-2324 Bcm Swivelock 4.75mm 24.5mm Self Punch Vent Shoulder [place] Suture - Sn/A - [id number] Implanted:Qty: 1 on 07/07/2019 by Jose Luis Newell MD at [facility] Other - see comments Right: Shoulder [employer] 04/06/2021 AR-2324B CM / N/A / [id number] [employer] Ar-2290 Fiberloop 3.2mm Drill Pin Needle Shoehorn Cannula Kit Suture - Sn/A - [id number] Implanted:Qty: 1 on 07/07/2019 by Jose Luis Newell MD at [facility] Other - see comments Right: Shoulder [employer] [id number] 12/06/2023 AR-2290 / N/A / [id number] Insurance [facility] [employer] CHOICE MEDICARE PPO MEDICARE Care Teams Welcome Wagon Host/Hostess Relationship Specialty Start Date End Date Sanjay Guerrero MD PCP - General Family Practice 12/16/20
--- OUTSIDE RECORDS SUMMARY | 2025-07-01 13:47 | XMS_ITS | Clinical Summary ---
Author Organization [facility] [employer] Address [address] [place] [address] Care Team Providers Care Bond Analyst Name Role Phone Sanjay Guerrero MD Primary Care Provider Source Comments [facility] [employer],non-owned Affiliates and Associated Physician Practices is amultiple site organization consisting of ambulatory clinics and hospital sitesin [place], [place], [place] and [place]. This disclosure is being madepursuant to the Care Everywhere program and may not contain all information available regarding this patient. 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 Gender Identity Not on file Sexual Orientation [...] yrs (1 - 1-dose 75+ series) 2021 DEPRESSION SCREENING 10/08/2024 COVID-19 VACCINE ( - 2023-2 5 season) 2025 INFLUENZA VACCINE (#1) 2025 HEPATITIS B VACCINE [...] to complete this topic Insurance [employer] [place] [place] [id number] [employer] MEDICARE ADV PPO SELF PAY NO INSURANCE Member Subscriber Plan / Payer (Ef fective for All Dates) Name:Ren Monzon Member ID:Not on file Relation to Subscriber:Not on file Name:REN MONZON Subscriber ID:Not on file (Home) Address: [address] [place] [address] Payer ID:Not on file Group ID:Not on file Type:Self Pay Address: [facility] MEDICARE Care Teams Bond Analyst Relationship Specialty Start Date End Date Sajnay Guerrero MD [address] [place] [address] PCP - General 02/22/22
--- OUTSIDE RECORDS SUMMARY | 2025-07-01 13:47 | XMS_ITS | Encounter Summary ---
Author Organization 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 This test has been authorized [...] LAB - MICROBIOLOGY ORDERABLES Fi nal Result [facility] [address] [place], [place] [id number] [place] [address] documented in this encounter Visit Diagnoses Not on filedocumented in this encounter Additional Health Concerns Infection Onset Date Last Indicated Resolved Time COVID-19 Under Investigation 02/27/2020 02/27/2020 02/28/2020 12:53 AM CDT documented as of this encounter Care Teams Car Filler Relationship Specialty Start Date End Date Ross Pineda MD [address] [place] [address] PCP - General 11/14/21 02/21/22 Sanjay Guerrero MD [address] [place] [address] PCP - General 02/22/22 documented as of this encounter
[2025-07-01 14:01] LABS: Hematocrit 43.3 % (42.0-52.0); Hemoglobin 14.3 g/dL (14.0-18.0); Immature Granulocyte Percent A 0.4 % (0-0.5); Lymphocytes Absolute Auto 1.69 K/mm3 (0.9-3.2); Mean Corpuscular HGB Conc 33.0 g/dl (32-36); Mean Corpuscular Hemoglobin 32.0 pg (26-34); Mean Corpuscular Volume 96.9 fl (80-100); Nucleated Red Blood Cells Absolute Auto 0.000 K/mm3 (0.0-0.012); Nucleated Red Blood Cells Perc 0.0 % (0.0-0.2); Platelet Count Result 187 k/mm3 (150-375); Red Blood Count 4.47 M/mm3 (4.6-6.20); White Blood Count 8.0 K/mm3 (4.5-10.0)
[2025-07-01 14:22] LABS: Anion Gap 6 mmol/L (4-12); Blood Urea Nitrogen 22 mg/dL (9-20); Calcium 9.0 mg/dL (8.4-10.2); Carbon Dioxide 25 mmol/L (22-30); Chloride 104 mmol/L (98-107); Estimated Glomerular Filt Rate > 60; Glucose 101 mg/dL (65-110); Potassium 4.3 mmol/L (3.4-5.0); Sodium 135 mmol/L (137-145)
[2025-07-01 14:57] LABS: Thyroid Stimulating Hormone 2.560 uIU/mL (0.465-4.680)
== END 2025-07-01 13:45 | disposition home or self-care (01) ==
PROVIDERS: PCP Family Medicine; Visit Provider Physician Assistant Medical
DX: R55 Syncope and collapse (principal); I10 Essential (primary) hypertension; R42 Dizziness and giddiness
CPT/HCPCS: 36415; 80048; 84443; 85025

== ENCOUNTER 2025-07-15 07:26 | Outpatient (CLI) | payer OTHER, SELFPAY ==
--- NOTE | ~2025-07-15 | MR_ITS ---
EXAMINATION: MR brain/brain stem wo/w con DATE: 07/15/2025 09:16 INDICATION: Syncope and collapse. TECHNIQUE: Magnetic resonance imaging (MRI) of the brain and brainstem was performed without and with 20 mL MultiHance intravenous contrast. COMPARISON: None. FINDINGS: There are scattered areas of nonspecific increased T2-weighted signal intensity in the cerebral white matter, which is within normal limits for the patient's age. There is no intracranial hemorrhage, acute infarction, or abnormal intracranial mass lesion. The ventricles are normal in size. There is mild mucosal thickening in the paranasal sinuses. There are likely changes of ocular lens replacement surgeries. There is a trace right mastoid effusion. IMPRESSION: 1. Normal aging brain. Reviewed, dictated and finalized at location E. IMPRESSION: 1. Normal aging brain.
--- NOTE | ~2025-07-15 | US_ITS ---
Clinical History: R55 - Syncope and collapse Examination: US carotid duplex BI Comparison: Carotid duplex 03/20/2015 Technique: Grayscale, color, duplex/spectral Doppler sonography carotid and vertebral arteries. Distal CCA and Peak ICA systolic velocities provided. Society of Radiologists in Ultrasound (SRU) consensus criteria utilized, indirectly assessing stenosis by velocities. Findings: Minimal plaque Right side: CCA - 115 cm/sec. ICA - 90 cm/sec. ICA/CCA - 0.8 Left Side: CCA - 109 cm/sec. ICA - 80 cm/sec. ICA/CCA - 0.7 Normal antegrade flow measured bilateral vertebral arteries. IMPRESSION: 1. No hemodynamically significant ICA stenosis (i.e., if any stenosis, less than 50%). 2. Normal bilateral antegrade vertebral artery flow. Stenosis measured by Society of Radiologists in Ultrasound (SRU) criteria. Reviewed, dictated and finalized at location R. IMPRESSION: 1. No hemodynamically significant ICA stenosis (i.e., if any stenosis, less th an 50%). 2. Normal bilateral antegrade vertebral artery flow. Stenosis measured by Society of Radiologists in Ultrasound (SRU) criteria.
== END 2025-07-15 07:27 | disposition home or self-care (01) ==
PROVIDERS: PCP Family Medicine; Visit Provider Physician Assistant Medical
DX: R55 Syncope and collapse (principal); R42 Dizziness and giddiness
CPT/HCPCS: 70553; 93880; A9577

== ENCOUNTER 2025-08-05 07:10 | Outpatient (CLI) | payer OTHER, SELFPAY ==
--- OUTSIDE RECORDS SUMMARY | 2025-08-05 07:13 | XMS_ITS | Encounter Summary ---
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 This test has been authorized [...] LAB - MICROBIOLOGY ORDERABLES Fi nal Result [facility] [address] [place], [place] [id number] [place] [address] documented in this encounter Visit Diagnoses Not on filedocumented in this encounter Additional Health Concerns Infection Onset Date Last Indicated Resolved Time COVID-19 Under Investigation 02/27/2020 02/27/2020 02/28/2020 12:53 AM CDT documented as of this encounter Care Teams Health Education Teacher Relationship Specialty Start Date End Date Ross Pineda MD [address] [place] [address] PCP - General 11/14/21 02/21/22 Sanjay Guerrero MD [address] [place] [address] PCP - General 02/22/22 documented as of this encounter
--- OUTSIDE RECORDS SUMMARY | 2025-08-05 07:13 | XMS_ITS | Data Portability ---
Author Organization [place] [facility], Main Office Address [address] [place] [address] Care Team Providers Care Manager Of Corporate Communications Name Role Phone ZULEIKA KWAN Primary Care Provider ZULEIKA KWAN Referring Provider [phone] JOSE SCOTT Surgical Appliance Fitter Assessment Encounter Date Assessment Date Assessment LastModified [...] strength testing his mild weakness external rotation gbql-kt-iqpwdfyp weakness thumbs down abduction. The will continue [...] mild weakness with external rotation is still pyge-zy-lyxjnpox weakness with abduction. Impression: Patient is now [...] patient more than half of this in yzon-jw-hdvc conversation [email or web address] Not available 06/04/2023 17:53:37 Plan of Treatment [...] Abnormal Flag Note LastModifiedBy Organization Detail LastModifiedTime 02/15/2012/15/2022 XR, shoul gladys No observ ation record ed. [email or web address] Not Available 2022 17:50:44 02/15/20 23 01/02/2023 MRI, shoul gladys, w/o contr ast No observ ation record ed. [email or web address] Not Available 2022 17:51:07 Result Notes None recorded. Problems Name Problem SNOMED Code Status Onset Date Resolution Date Notes Provider Name and Address Organization Details Recorded Time Localized, primary osteoarthr itis of the pelvic region and thigh 450234470 Active Not Available [facility] 04:49:09 Partial thickness rotator cuff tear 707806070 Active Not Available [facility] 3 04:49:09 Osteoarthr itis 351981535 Active Not Available [facility] 3 04:49:09 Pain of right shoulder joint 9916295218925 9100 Active 2022 Not Available [facility] 3 04:49:09 Pain of left shoulder joint 6485333216858 9109 Active 2022 Pili Flores RMChris null, [facility] [employer] [facility] 3 09:31:56 Rupture of rotator cuff of left shoulder 2750132207224 9102 Active 2022 Madeline Browne CMA null, [facility] [employer] [facility] 3 15:54:41 Problem Notes None recorded. Procedures Surgical History Date Name Laterality Status Provider Name and Address Organization Details Recorded Time 0 procedure on elbow completed Not Available [facility] 12/06/2022 04:41:54 0 Back completed Not Available [facility] 3 04:41:54 9 Rotator cuff surgery completed Not Available [facility] 12/06/2022 04:41:54 Imaging Results None recorded. Procedure Notes None recorded. Medical Equipment None [...] administe red by the provider 02/23 completed [facility]: 0003- 0494- 20 Not Available Not Available [...] administe red by the provider 02/23 completed [facility] [id number] -[id number]- [id number] Not Available Not Available Not [...] Available Not Available Not Available Fluzone High-Dose [id number] (PF) 180 mcg/0.5 mL intramuscul ar syringe [...] Details Last Updated DateTime 03/12/2023 175.26 cm BRIAN Barajas [place] [facility] 03/12/2023 13:54:11 Date Recorded Body height Provider Name an d Address Organization Details Last Updated DateTime 03/26/2023 175.26 cm Pili Flores [facility] [employer] [facility] 03/26/2023 13:54:22 Date Recorded Body height Provider Name an d Address Organization Details Last Updated DateTime 04/09/2023 175.26 cm Pili Flores [facility] [employer] [facility] 04/09/2023 16:41:37 Date Recorded Body height Provider Name an d Address Organization Details Last Updated DateTime 05/07/2023 175.26 cm Pili Flores [facility] 05/07/2023 17:01:19 Date Recorded Body height Provider Name an d Address Organization Details Last Updated DateTime 06/04/2023 175.26 cm Britney Grier, [facility] 06/04/2023 17:15:09 Social History Question Answer Notes LastModified by Organizat ion Details LastModified Time Tobacco Smoking Status Never Smoker Not Available [facility] 12/06/2022 04:06:49 What Was The Date Of Your Most Recent Tobacco Screening? 01/24/2021 [id number] Information not available 12/06/2022 Sex: Unknown Functional Status None recorded. Mental Status None recorded. Family History Relationship Description Onset Age of this Age Resolved Age Notes LastModified by Organization Details LastModified Time Unspecified Relation Diabetes mellitus [id number] Not available 12/06/2022 04:41:54 Unspecified Relation Hypertensive disorder [id number] Not available 12/06/2022 04:41:55 Unspecified Relation Heart disease [id number] Not available 12/06/2022 04:41:55 Unspecified Relation Family history of stroke [id number] Not available 06/04 17:13:00 Unspecified Relation Family history of malignant neoplasm [id number] Not available 06/04 17:13:00 Notes:EMPHYSEMA (MOTHER) Medical History Condition Response ARTHRITIS Y HYPERTENSION Y Past Encounters Encounter ID Performer Location Encounter Start Date Encounter Closed Date Diagnosis/Indication Diagnosis SNOMED-CT Code Diagnosis ICD10 Code Diagnosis IMO Codes Diagnosis Note [id number] Shashank Cason MD [facility] [address] [place] [address] 01/24/2021 00:00:00 01/24/2021 15:04:06 [id number] Shashank Cason MD [facility] [address] [place] [address] 02/25/2021 00:00:00 02/25/2021 11:34:30 [id number] Shashank Cason MD [facility] [address] [place] [address] 03/14/2021 00:00:00 03/14/2021 18:40:33 [id number] Shashank Cason MD [facility] [address] [place] [address] 03/28/2021 00:00:00 03/28/2021 15:29:58 [id number] Shashank Cason MD [facility] [place] [address] [place] [address] 05/25/2021 00:00:00 05/25/2021 12:27:32 [id number] Shashank Cason MD [facility] [address] [place] [address] 02/15/2022 00:00:00 02/15/2022 09:44:13 [id number] Shashank Cason MD [facility] [address] [place] [address] 02/22/2022 00:00:00 02/22/2022 08:51:39 [id number] Shashank Cason MD [facility] [address] [place] [address] 11/17/2022 00:00:00 11/19/2022 17:59:56 [id number] Shashank Cason MD [facility] [address] [place] [address] 01/12/2023 09:04:23 01/15/2023 10:15:17 Pain of left shoulder joint 4998443094 6870808 M25.512 [id number] Shashank Cason MD [facility] [address] [place] [address] 02/21/2023 13:50:03 02/22/2023 11:37:23 Partial thickness rotator cuff tear 227875234 M75.102 [id number] Shashank Cason MD [facility] [place] [address] [place] [address] 02/23/2023 10:39:12 02/23/2023 12:11:24 Partial thickness rotator cuff tear 619181835 M75.102 [id number] Shashank Cason MD [facility] [place] [address] [place] [address] 03/12/2023 13:51:01 03/12/2023 14:45:27 Partial thickness rotator cuff tear 168014225 M75.102 [id number] Shashank Cason MD [facility] [place] [address] [place] [address] 03/26/2023 13:52:19 03/26/2023 14:40:35 Partial thickness rotator cuff tear 912983340 M75.102 [id number] Shashank Cason MD [facility] [place] [address] [place] [address] 04/09/2023 16:31:34 04/11/2023 14:09:19 Postoperative visit 542380609 Z09 [id number] Shashank Cason MD [facility] [place] [address] [place] [address] 05/07/2023 16:54:42 05/09/2023 14:02:16 Partial thickness rotator cuff tear 241987639 M75.845 [id number] Shashank Cason MD [facility] [place] [address] [place] [address] 06/04/2023 17:10:17 06/04/2023 17:55:43 Pain of left shoulder joint 6535136952 8609322 M25.512 Health Concerns Section Related Observation LastModified by Organization Detai ls LastModified Time None Recorded Concern Status LastModified by Organization Details LastModified Time None Recorded Advance Directives Directive None Recorded Payers Insurance Date Sequence Insurance Name Policy Number Policy Nguyen Covered Member ID Nguyen Member ID Guarantor Name 06/04/2023 1 [employer] (MEDICARE REPLACEMENT HMO) [id number] Ren Monzon [id number] Ren Monzon
--- OUTSIDE RECORDS SUMMARY | 2025-08-05 07:13 | XMS_ITS | Clinical Summary ---
Author Organization [facility] Address [address] [place] [address] Care Team Providers Care Developmental Training Counselor Name Role Phone Sanjay Guerrero MD Primary [...] 0.4 mg by mouth nightly 9 Active botidjor-sbw-efh ic-vit K-lycop 400-20-370 mcg tabletIndication s:supplement Take [...] 1 capsule by mouth every morning Active hbhmdbib-zvlpb-k yalu-CF borate 750 mg-100 mg- 1.65 mg-108 [...] 03/03/2021 Assessment & Plan (08/18/2021 4:24 PM PHYSICIAN OFFICE NURSE): Stable exam and OCT. Observe. - Likely [...] 02/19/2020 Assessment & Plan (08/18/2021 4:22 PM PHYSICIAN OFFICE NURSE): Stable exam and imaging. Continue to observe. [...] time. Assessment & Plan (12/16/2020 2:19 PM PHYSICIAN OFFICE NURSE): Has remained stable over the last 8 [...] 02/19/2020 Assessment & Plan (12/16/2020 2:17 PM PHYSICIAN OFFICE NURSE): The lesion in the right eye appears [...] (07/02/2019): Added automatically from request for surgery [id number] Surgical History Surgery Date Site/Laterality Comments TONSILLECTOMY [...] on file Legal Sex Male 3:43 AM PHYSICIAN OFFICE NURSE Gender Identity Not on file Sexual Orientation Not on file Obstetrics History Last Filed Vital Signs Vital Sign Reading Time Taken Comments Blood Pressure 129/79 07/07/2019 4:10 PM CDT Pulse 60 07/07/2019 4:35 PM CDT Temperature 36 C (96.8 F) 07/07/2019 2:40 PM CDT Respiratory Rate 18 09/15/2022 1:03 PM PHYSICIAN OFFICE NURSE Oxygen Saturation 93% 07/07/2019 4:35 PM CDT Inhaled Oxygen Concentration - - Weight 90.7 kg (200 lb) 09/15/2022 1:03 PM PHYSICIAN OFFICE NURSE Height 177.8 cm (5' 10) 09/15/2022 1:03 PM PHYSICIAN OFFICE NURSE Body Mass Index 28.7 09/15/2022 1:03 PM PHYSICIAN OFFICE NURSE Plan of Treatment Health Maintenance Due Date [...] 09/13/2017, 04/2016 Medical Devices Implanted Type Area Tenant Coordinator Device Identifier Shelf Expiration Date Model / Serial / Lot [employer] Ar-1927bct Corkscrew Suturetape 5.5mm 14.7mm Bioabsorbable Full Thread 1.3mm - Sn/A - [id number] Implanted:Qty: 1 on 07/07/2019 by Jose Luis Newell MD at [facility] Other - see comments Right: Shoulder [employer] [id number] 02/04/[address] AR-[address] / N/A / [id number] [employer] Ar-1927bct Corkscrew Suturetape 5.5mm 14.7mm Bioabsorbable Full Thread 1.3mm - Sn/A - [id number] Implanted:Qty: 1 on 07/07/2019 by Jose Luis Newell MD at [facility] Other - see comments Right: Shoulder [employer] [id number] 04/06/[address] / N/A / [id number] [employer] Ar-1927bct Corkscrew Suturetape 5.5mm 14.7mm Bioabsorbable Full Thread 1.3mm - Sn/A - [id number] Implanted:Qty: 1 on 07/07/2019 by Jose Luis Newell MD at [facility] Other - see comments Right: Shoulder [employer] [id number] 01/05/[address] / N/A / [id number] [employer] Ar-2324 Bcm Swivelock 4.75mm 24.5mm Self Punch Vent Shoulder [place] Suture - Sn/A - [id number] Implanted:Qty: 1 on 07/07/2019 by Jose Luis Newell MD at [facility] Other - see comments Right: Shoulder [employer] 04/06/2021 AR-2324B CM / N/A / [id number] [employer] Ar-2324 Bcm [place]ivelock 4.75mm 24.5mm Self Punch Vent Shoulder [place] Suture - Sn/A - [id number] Implanted:Qty: 1 on 07/07/2019 by Jose Luis Newell MD at [facility] Other - see comments Right: Shoulder [employer] 04/06/2021 AR-2324B CM / N/A / [id number] [employer] Ar-2290 Fiberloop 3.2mm Drill Pin Needle [place] Cannula Kit Suture - Sn/A - [id number] Implanted:Qty: 1 on 07/07/2019 by Jose Luis Newell MD at [facility] Other - see comments Right: Shoulder [employer] [id number] 12/06/2023 AR-2290 / N/A / [id number] Insurance [facility] [employer] CHOICE MEDICARE PPO MEDICARE Care Teams Developmental Training Counselor Relationship Specialty Start Date End Date Sanjay Guerrero MD PCP - General Family Practice 12/16/20
--- OUTSIDE RECORDS SUMMARY | 2025-08-05 07:13 | XMS_ITS | Clinical Summary ---
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
--- OUTSIDE RECORDS SUMMARY | 2025-08-05 07:13 | XMS_ITS | Clinical Summary ---
Author Organization [facility] Address [address] [place] [address] Care Team Providers Care Scheduling Specialist Name Role Phone Sanjay Guerrero MD Primary Care Provider Source Comments [facility],non-owned Affiliates and Associated Physician Practices is amultiple site organization consisting of ambulatory clinics and hospital sitesin [place], [place], [place] and [place]. This disclosure is being madepursuant to the Care Everywhere program and may not contain all information available regarding this patient. 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
[2025-08-05 07:53] LABS: Hematocrit 44.6 % (42.0-52.0); Hemoglobin 15.0 g/dL (14.0-18.0); Immature Granulocyte Percent A 0.3 % (0-0.5); Lymphocytes Absolute Auto 1.85 K/mm3 (0.9-3.2); Mean Corpuscular HGB Conc 33.6 g/dl (32-36); Mean Corpuscular Hemoglobin 32.5 pg (26-34); Mean Corpuscular Volume 96.7 fl (80-100); Nucleated Red Blood Cells Absolute Auto 0.000 K/mm3 (0.0-0.012); Nucleated Red Blood Cells Perc 0.0 % (0.0-0.2); Platelet Count Result 190 k/mm3 (150-375); Red Blood Count 4.61 M/mm3 (4.6-6.20); White Blood Count 6.9 K/mm3 (4.5-10.0)
[2025-08-05 08:13] LABS: Anion Gap 6 mmol/L (4-12); Blood Urea Nitrogen 20 mg/dL (9-20); Calcium 8.9 mg/dL (8.4-10.2); Carbon Dioxide 26 mmol/L (22-30); Chloride 103 mmol/L (98-107); Estimated Glomerular Filt Rate > 60; Glucose 112 mg/dL (65-110); Potassium 4.1 mmol/L (3.4-5.0); Sodium 135 mmol/L (137-145)
== END 2025-08-05 07:11 | disposition home or self-care (01) ==
PROVIDERS: PCP Family Medicine; Visit Provider Physician Assistant Medical
DX: D64.9 Anemia, unspecified (principal); N28.9 Disorder of kidney and ureter, unspecified
CPT/HCPCS: 36415; 80048; 85025

== ENCOUNTER 2025-08-25 10:52 | Outpatient (CLI) | payer OTHER, SELFPAY ==
[2025-08-25 13:06] LABS: MALB Creatinine Ratio < 6.1 mg/g (0-30)
== END 2025-08-25 10:53 | disposition home or self-care (01) ==
LOC: ANHLAB 10:55
PROVIDERS: PCP Family Medicine; Visit Provider Family Medicine
DX: E11.9 Type 2 diabetes mellitus without complications (principal)
CPT/HCPCS: 82043